=== PATIENT | female | born 1935 | race Caucasian/White ===

== ENCOUNTER 2020-08-13 16:48 | Emergency (ER) | payer OTHER ==
[2020-08-13] MEDS ORDERED: MORPHINE 2 MG/ML SYR ONE ×2 (18:02→18:31)
[2020-08-13] MEDS ORDERED: ONDANSETRON 4 MG/2 ML VIAL ONE (18:02)
--- NOTE | 2020-08-13 18:07 | EDPHYS ---
Physician Documentation [facility] Name: Ester Sanchez Age: 85 yrs Sex: Female : 1935 Arrival Date: 08/13/2020 Time: 16:51 Bed 4 Private MD: ED Physician Gary Palm HPI: 08/13 18:01 This 85 yrs old Female presents to ER via Wheelchair with complaints of Fall kdr Injury. 18:01 Details of fall: The patient fell from an upright position, while standing, while kdr walking. Onset: The symptoms/episode began/occurred suddenly, just prior to arrival. Associated injuries: The patient sustained left iliac crest and left hip. Severity of symptoms: At their worst the symptoms were moderate, in the emergency department the symptoms are unchanged. The patient has not experienced similar symptoms in the past. The patient has not recently seen a physician. The patient states that she was walking on [place] and tripped landing on her left hip. She has been unable to stand since. Historical: - Allergies: 17:17 No Known Allergies; ca1 - PMHx: 17:17 Diabetes - IDDM; Hypertension; ca1 - Immunization history:: Pneumococcal vaccine is not up to date, Flu vaccine is not up to date. - Social history:: Smoking status: Patient denies any tobacco usage or history of. - Immunization history: Last tetanus immunization: < 10 years ago. ROS: 18:01 Constitutional: Negative for fever, chills, and weight loss, Eyes: Negative for injury, kdr pain, redness, and discharge, ENT: Negative for injury, pain, and discharge, Neck: Negative for injury, pain, and swelling, Cardiovascular: Negative for chest pain, palpitations, and edema, Respiratory: Negative for shortness of breath, cough, wheezing, and pleuritic chest pain, Abdomen/GI: Negative for abdominal pain, nausea, vomiting, diarrhea, and constipation, Back: Negative for injury and pain, : Negative for injury, bleeding, discharge, and swelling, Skin: Negative for injury, rash, and discoloration, Neuro: Negative for headache, weakness, numbness, tingling, and seizure activity. Psych: Negative for depression, anxiety, suicide ideation, homicidal ideation, and hallucinations, Allergy/Immunology: Negative for hives, rash, and allergies, Endocrine: Negative for neck swelling, polydipsia, polyuria, polyphagia, and marked weight changes, Hematologic/Lymphatic: Negative for swollen nodes, abnormal bleeding, and unusual bruising. 18:01 MS/extremity: Positive for injury or acute deformity, decreased range of motion, pain, tenderness, of the left hip. Exam: 18:01 Constitutional: This is a well developed, well nourished patient who is awake, alert, kdr and in no acute distress. Head/Face: Normocephalic, atraumatic. Eyes: Pupils equal round and reactive to light, extra-ocular motions intact. Lids and lashes normal. Conjunctiva and sclera are non-icteric and not injected. Cornea within normal limits. Periorbital areas with no swelling, redness, or edema. Neck: Trachea midline, no thyromegaly or masses palpated, and no cervical lymphadenopathy. Supple, full range of motion without nuchal rigidity, or vertebral point tenderness. No Meningismus. Chest/axilla: Normal chest wall appearance and motion. Nontender with no deformity. No lesions are appreciated. Cardiovascular: Regular rate and rhythm with a normal S1 and S2. No gallops, murmurs, or rubs. Normal PMI, no JVD. No pulse deficits. Respiratory: Lungs have equal breath sounds bilaterally, clear to auscultation and percussion. No rales, rhonchi or wheezes noted. No increased work of breathing, no retractions or nasal flaring. Abdomen/GI: Soft, non-tender, with normal bowel sounds. No distension or tympany. No guarding or rebound. No evidence of tenderness throughout. Back: No spinal tenderness. No costovertebral tenderness. Full range of motion. Skin: Warm, dry with normal turgor. Normal color with no rashes, no lesions, and no evidence of cellulitis. Neuro: Awake and alert, GCS 15, oriented to person, place, time, and situation. Cranial nerves II-XII grossly intact. Motor strength 5/5 in all extremities. Sensory grossly intact. Cerebellar exam normal. Normal gait. Psych: Awake, alert, with orientation to person, place and time. Behavior, mood, and affect are within normal limits. 18:01 Musculoskeletal/extremity: Extremities: grossly normal except: noted in the left hip: contusion, decreased ROM, pain, tenderness, Distal motor vascular intact. Vital Signs: 17:14 BP 174 / 71; Pulse 98; Resp 16 S; Temp 97.1(TE); Pulse Ox 100% on R/A; Weight 56.7 kg ca1 (R); Height 5 ft. 6 in. (167.64 cm) (R); Pain 10/10; 18:24 BP 180 / 85; Pulse 93; Resp 16; Pulse Ox 95% on R/A; Pain 9/10; ss 19:20 BP 177 / 66; Pulse 68; Resp 15; Pulse Ox 99% on R/A; Pain 10/10; hb 19:30 BP 171 / 66; Pulse 91; Resp 16; Pulse Ox 95% ; sf 20:00 BP 172 / 65; Pulse 91; Resp 16; Pulse Ox 96% ; sf 20:30 BP 166 / 65; Pulse 89; Resp 16; Pulse Ox 96% ; sf 17:14 Body Mass Index 20.18 (56.70 kg, 167.64 cm) ca1 [place] Coma Score: 17:25 Eye Response: spontaneous(4). Verbal Response: oriented(5). Motor Response: obeys hb commands(6). Total: 15. 18:24 Eye Response: spontaneous(4). Verbal Response: oriented(5). Motor Response: obeys ss commands(6). Total: 15. Trauma Score (Adult): 17:25 Eye Response: spontaneous(1); Verbal Response: oriented(1); Motor Response: obeys hb commands(2); Systolic BP: > 89 mm Hg(4); Respiratory Rate: 10 to 29 per min(4); [place] Score: 15; Trauma Score: 12 18:24 Eye Response: spontaneous(1); Verbal Response: oriented(1); Motor Response: obeys ss commands(2); Systolic BP: > 89 mm Hg(4); Respiratory Rate: 10 to 29 per min(4); [place] Score: 15; Trauma Score: 12 19:20 Eye Response: spontaneous(1); Verbal Response: oriented(1); Motor Response: obeys hb commands(2); Systolic BP: > 89 mm Hg(4); Respiratory Rate: 10 to 29 per min(4); [place] Score: 15; Trauma Score: 12 MDM: 18:01 Data reviewed: vital signs, nurses notes, radiologic studies. Counseling: I had a kdr detailed discussion with the patient and/or guardian regarding: the historical points, exam findings, and any diagnostic results supporting the discharge/admit diagnosis, radiology results, the need to transfer to another facility. 18:06 Patient medically screened. kdr 08/13 17:30 Order name: Pelvis XRAY; Complete Time: 18:25 kdr 08/13 17:30 Order name: Hip Left 2 View XRAY; Complete Time: 18:25 kdr 08/13 19:36 Order name: COVID-19/FLU A+B EDMS 08/13 20:54 Order name: Glucose, Ancillary Testing EDMS Administered Medications: 17:56 Drug: morphine 2 mg Route: IVP; Site: right antecubital; hb 17:56 Drug: Zofran (Ondansetron) 4 mg Route: IVP; Site: right antecubital; hb 18:25 Follow up: Response: No adverse reaction ss 18:15 Drug: morphine 2 mg Route: IVP; Site: right antecubital; ss 18:27 Follow up: Response: No adverse reaction; No change in condition; Pain is unchanged, physician notified 18:27 Drug: fentaNYL (PF) 25 mcg Route: IVP; Site: right antecubital; ss 18:50 Follow up: Response: No adverse reaction hb 18:40 Drug: fentaNYL (PF) 25 mcg Route: IVP; Site: right antecubital; hb 18:59 Follow up: Response: No adverse reaction hb 18:55 Drug: fentaNYL (PF) 25 mcg Route: IVP; Site: right antecubital; hb 19:18 Follow up: Response: No adverse reaction; Pain is unchanged, physician notified sf 19:18 Drug: fentaNYL (PF) 50 mcg Route: IVP; Site: right antecubital; hb 20:54 Follow up: Response: No adverse reaction; Pain is decreased Disposition: 08/13/20 18:[address] [facility]. Diagnosis are Left Femeral neck fracture, Other slipping, tripping and stumbling and falls. - Reason for transfer: Higher level of care. - Accepting physician is Abio. - Condition is Fair. - Problem is new. - Symptoms are unchanged. Signatures: Dispatcher [employer] EDIN Gary Palm MD MD [facility] Poonam Rendon RN RN Paz Short RN RN Sheila Mai RN RN [facility] Josemanuel Soni RN RN sf Corrections: (The following items were deleted from the chart) 18:47 18:06 08/13/2020 18:[address] [facility]. kdr Diagnosis is Left Femeral neck fracture; Other slipping, tripping and stumbling and falls. Reason for transfer: Higher level of care. Accepting physician is e. Condition is Fair. Problem is new. Symptoms are unchanged. kdr 20:15 18:01 CORONAVIRUS+MR.LAB.BRZ ordered. EDMS EDMS 20:15 18:01 Influenza Screen (A \T\ B)+BA.LAB.BRZ ordered. EDMS EDMS 20:54 18:47 08/13/2020 18:[address] [facility]. sf Diagnosis is Left Femeral neck fracture; Other slipping, tripping and stumbling and falls. Reason for transfer: Higher level of care. Accepting physician is Abio. Condition is Fair. Problem is new. Symptoms are unchanged. kdr
--- NOTE | 2020-08-13 18:07 | ER ---
Nurse's Notes [facility] Name: Ester Sanchez Age: 85 yrs Sex: Female : 1935 Arrival Date: 08/13/2020 Time: 16:51 Bed 4 Private MD: Diagnosis: Left Femeral neck fracture;Other slipping, tripping and stumbling and falls Presentation: 08/13 17:14 Chief complaint: Patient states: Tripped and fell, stumbled and fell on my L side 1 hr ca1 [employer]. Pain on L hip. Coronavirus screen: Client denies travel out of the [place] in the last 14 days. At this time, the client does not indicate any symptoms associated with coronavirus-19. Ebola Screen: Patient negative for fever greater than or equal to 101.5 degrees Fahrenheit, and additional compatible Ebola Virus Disease symptoms Patient denies exposure to infectious person. Patient denies travel to an Ebola-affected area in the 21 days before illness onset. No symptoms or risks identified at this time. Initial Sepsis Screen: Does the patient meet any 2 criteria? No. Patient's initial sepsis screen is negative. Does the patient have a suspected source of infection? No. Patient's initial sepsis screen is negative. Risk Assessment: Do you want to hurt yourself or someone else? Patient reports no desire to harm self or others. Onset of symptoms was August 13, 2020. 17:14 Method Of Arrival: Wheelchair ca1 17:14 Acuity: MARIELY 2 ca1 17:35 Care prior to arrival: None. Mechanism of Injury: Fall from standing position. Trauma hb event details: Injury occurred in the [facility], Injury occurred: in a public building. Trauma Activation: Alert Physician: ED Physician; Name: ; Notified At: ; Arrived At: Physician: General Surgeon; Name: ; Notified At: ; Arrived At: Physician: Radiology; Name: ; Notified At: ; Arrived At: Physician: Respiratory; Name: ; Notified At: ; Arrived At: Physician: Lab; Name: ; Notified At: ; Arrived At: Historical: - Allergies: 17:17 No Known Allergies; ca1 - PMHx: 17:17 Diabetes - IDDM; Hypertension; ca1 - Immunization history:: Pneumococcal vaccine is not up to date, Flu vaccine is not up to date. - Social history:: Smoking status: Patient denies any tobacco usage or history of. - Immunization history: Last tetanus immunization: < 10 years ago. Screenin:25 Abuse screen: Denies threats or abuse. Denies injuries from another. Tuberculosis hb screening: No symptoms or risk factors identified. 17:45 Nutritional screening: No deficits noted. Fall Risk Total Ma Fall Scale indicates hb High Risk Score (45 or more points). Fall prevention measures have been instituted. Side Rails Up X 2 Frequent Obs/Assessments Occuring As available patient and family educated on Fall Prevention Program and Strategies. Primary Survey: 17:25 NO uncontrolled hemorrhage observed. A: The patient is alert. Airway: patent. hb Breathing/Chest: Respiratory pattern: regular, Respiratory effort: spontaneous, unlabored, Chest inspection: symmetrical rise and fall of the chest. Circulation: Skin color: pink. Disability Alert. Exposure/Environment: No obvious injuries are noted at this time. 18:26 Reassessment Airway Airway Patent Oxygen No O2 Oral cavity Clear Trachea Midline ss Breathing/Chest Respiratory pattern Regular Respiratory effort Spontaneous Unlabored Breath sounds Clear Chest inspection Symmetrical Disability Alert. 19:20 Reassessment Airway Airway Patent Oxygen No O2 Breathing/Chest Respiratory pattern hb Regular Respiratory effort Spontaneous Unlabored Chest inspection Symmetrical Circulation Pulses Palpable Color [place] Disability Alert. Secondary Survey: 17:30 HEENT: No deficits noted. Gastrointestinal: No deficits noted. Abdomen is. : No hb deficits noted. No signs and/or symptoms were reported regarding the genitourinary system. Musculoskeletal: Reports left hip pain 10/10, left leg shortened and externally rotated. Assessment: 17:45 General: Appears in no apparent distress. uncomfortable, Behavior is calm, cooperative. hb Pain: Pain currently is 10 out of 10 on a pain scale. 17:45 Neuro: Level of Consciousness is awake, alert, obeys commands, Oriented to person, hb place, time, situation. Cardiovascular: Capillary refill < 3 seconds Patient's skin is warm and dry. Respiratory: Respiratory effort is even, unlabored, Respiratory pattern is regular, symmetrical. GI: No signs and/or symptoms were reported involving the gastrointestinal system. : No signs and/or symptoms were reported regarding the genitourinary system. EENT: No signs and/or symptoms were reported regarding the EENT system. Derm: Skin is pink, warm \T\ dry. Musculoskeletal: Reports ;eft hip pain 10/10, left leg externally rotated and shortened. 18:32 Reassessment: Pt c/o left hip pain 10/10. Dr Palm notified, fentanyl administered as hb ordered. 19:19 Reassessment: AK c/o left hip pain 10/10, CONSUELO Baird notified, VO for fentanyl 50 mcg IVP hb given. Medicated as ordered. Patented to call report to [facility], nurse unavailable at this time. Vital Signs: 17:14 BP 174 / 71; Pulse 98; Resp 16 S; Temp 97.1(TE); Pulse Ox 100% on R/A; Weight 56.7 kg ca1 (R); Height 5 ft. 6 in. (167.64 cm) (R); Pain 10/10; 18:24 BP 180 / 85; Pulse 93; Resp 16; Pulse Ox 95% on R/A; Pain 9/10; ss 19:20 BP 177 / 66; Pulse 68; Resp 15; Pulse Ox 99% on R/A; Pain 10/10; hb 19:30 BP 171 / 66; Pulse 91; Resp 16; Pulse Ox 95% ; sf 20:00 BP 172 / 65; Pulse 91; Resp 16; Pulse Ox 96% ; sf 20:30 BP 166 / 65; Pulse 89; Resp 16; Pulse Ox 96% ; sf 17:14 Body Mass Index 20.18 (56.70 kg, 167.64 cm) ca1 [place] Coma Score: 17:25 Eye Response: spontaneous(4). Verbal Response: oriented(5). Motor Response: obeys hb commands(6). Total: 15. 18:24 Eye Response: spontaneous(4). Verbal Response: oriented(5). Motor Response: obeys ss commands(6). Total: 15. Trauma Score (Adult): 17:25 Eye Response: spontaneous(1); Verbal Response: oriented(1); Motor Response: obeys hb commands(2); Systolic BP: > 89 mm Hg(4); Respiratory Rate: 10 to 29 per min(4); [place] Score: 15; Trauma Score: 12 18:24 Eye Response: spontaneous(1); Verbal Response: oriented(1); Motor Response: obeys ss commands(2); Systolic BP: > 89 mm Hg(4); Respiratory Rate: 10 to 29 per min(4); [place] Score: 15; Trauma Score: 12 19:20 Eye Response: spontaneous(1); Verbal Response: oriented(1); Motor Response: obeys hb commands(2); Systolic BP: > 89 mm Hg(4); Respiratory Rate: 10 to 29 per min(4); [place] Score: 15; Trauma Score: 12 ED Course: 16:51 Patient arrived in ED. rg4 17:17 Triage completed. ca1 17:17 Arm band placed on right wrist. ca1 17:18 Gary Palm MD is Attending Physician. kdr 17:25 Patient has correct armband on for positive identification. Bed in low position. Call hb light in reach. Side rails up X 1. 17:25 Patient maintains SpO2 saturation greater than 95% on room air. hb 17:35 Thermoregulation: warm blanket given to patient. hb 17:42 Paz Short RN is Primary Nurse. hb 17:49 Pelvis XRAY In Process Unspecified. EDMS 17:50 Hip Left 2 View XRAY In Process Unspecified. EDMS 17:55 Inserted saline lock: 20 gauge in right antecubital area, using aseptic technique. hb 18:23 No provider procedures requiring assistance completed. Patient transferred, IV remains ss in place. 18:24 Talley cath inserted, using sterile technique, 16 Fr., by mn, balloon inflated, to ss gravity drainage, Patient tolerated well. 19:23 Primary Nurse role handed off by Paz Short RN sf 19:23 Josemanuel Soni RN is Primary Nurse. sf 20:03 Report given to Homa Sweet RN ([facility]). sf 20:51 Report given to [facility]. sf Administered Medications: 17:56 Drug: morphine 2 mg Route: IVP; Site: right antecubital; hb 17:56 Drug: Zofran (Ondansetron) 4 mg Route: IVP; Site: right antecubital; hb 18:25 Follow up: Response: No adverse reaction ss 18:15 Drug: morphine 2 mg Route: IVP; Site: right antecubital; ss 18:27 Follow up: Response: No adverse reaction; No change in condition; Pain is unchanged, physician notified 18:27 Drug: fentaNYL (PF) 25 mcg Route: IVP; Site: right antecubital; ss 18:50 Follow up: Response: No adverse reaction hb 18:40 Drug: fentaNYL (PF) 25 mcg Route: IVP; Site: right antecubital; hb 18:59 Follow up: Response: No adverse reaction hb 18:55 Drug: fentaNYL (PF) 25 mcg Route: IVP; Site: right antecubital; hb 19:18 Follow up: Response: No adverse reaction; Pain is unchanged, physician notified sf 19:18 Drug: fentaNYL (PF) 50 mcg Route: IVP; Site: right antecubital; hb 20:54 Follow up: Response: No adverse reaction; Pain is decreased sf Intake: 17:25 PO: 0ml; Total: 0ml. hb Outcome: 18:06 ER care complete, transfer ordered by . kdr 18:23 Instructed on the need for transfer. ss 20:02 Transferred by ground EMS to [facility], Transfer form completed. sf X-rays sent w/ patient. 20:02 Condition: stable 20:53 Patient's length of stay in the Emergency Department was greater than 2 hours. sf TransportationPatient's length of stay extended due to 20:54 Patient left the ED. sf Signatures: Dispatcher [employer] EDMS Gary Palm MD MD [facility] Poonam Rendon RN RN Paz Short, ATIF SRIVASTAVA Irish Wan rg4 Sheila Mai RN RN [facility] Josemanuel Soni RN RN sf Corrections: (The following items were deleted from the chart) 19:20 17:35 Trauma Activation: Not Applicable hb hb 20:51 20:02 Transferred by ground EMS to [facility], Transfer form sf completed. X-rays sent w/ patient. sf
--- NOTE | 2020-08-13 18:12 | RAD REPORT ---
EXAM DESCRIPTION: RAD - Hip Left 2 View - 08/13/2020 5:49 pm CLINICAL HISTORY: s/p fall;Pain COMPARISON: No comparisons FINDINGS: AP and cross-table lateral views of the left hip were obtained. Transverse fracture of the left femoral neck is present. Fracture traverses from the subcapital regio n laterally to the midportion of the femoral at the medial margin. There is impaction along the media l margin. No extension into the intertrochanteric region. Pathologic etiology is not identifiable. Bones are osteopenic. Degenerative changes are present along the superior acetabular rim. No fracture of the left hemipelvis seen. SI joint and pubic symphysis degenerative changes present. No significant soft tissue finding. IMPRESSION: Left femoral neck fracture with impaction as detailed.
--- NOTE | 2020-08-13 18:13 | RAD REPORT ---
EXAM DESCRIPTION: RAD - Pelvis - 08/13/2020 5:49 pm CLINICAL HISTORY: PAIN, fall, pelvic and pain COMPARISON: No remote imaging TECHNIQUE: AP imaging of the pelvis was obtained. FINDINGS: Fracture of the left femoral neck is present and detailed in separate report. No fracture of the proximal right femur. Bilateral moderate severity hip joint degenerative change. Each medial j oint space is narrowed. Spurring changes are present at each acetabular rim. Pelvis is osteopenic. Fracture of the bony pelvis is not identified. Sacral ala appear intact but are partially obscured by bowel. SI joint degenerative change present. Patient has severe lumbar degener ative change only partially imaged. Arterial tree calcifications are present. IMPRESSION: Bony pelvis osteopenic and degenerative change as detailed. No acute finding of the bony pelvis. Left femoral neck fracture detailed in separate report.
[2020-08-13] MEDS ORDERED: FENTANYL CITR 100 MCG/2 ML ONE ×2 (18:42→19:34)
[2020-08-13 19:36] LABS: SARS-COV-2 RT PCR NEGATIVE (NEGATIVE)
[2020-08-14 15:45] VITALS: BP 171/66; O2SAT 95
== END 2020-08-13 20:54 | disposition short-term general hospital (02) ==
LOC: ER 16:48
DX: S72.002A Fracture of unspecified part of neck of left femur, initial encounter for closed fracture (principal); W01.0XXA Fall on same level from slipping, tripping and stumbling without subsequent striking against object, initial encounter; Y93.01 Activity, walking, marching and hiking; Y92.512 Supermarket, store or market as the place of occurrence of the external cause; Z20.822 Contact with and (suspected) exposure to COVID-19; I10 Essential (primary) hypertension; E11.9 Type 2 diabetes mellitus without complications
CPT/HCPCS: 82947; 0240U; 72170; 73502; 51702; 96375; 96374; 99285; J3010 ×2; J2270 ×2; J2405; G0390

== ENCOUNTER 2021-04-08 14:09 | Inpatient (IN) | payer OTHER ==
--- OUTSIDE RECORDS SUMMARY | 2021-04-08 14:12 | XMS REPORT | Continuity of Care Document ---
:1935 Author Organization [facility] t Address [address] [place] [address] Dr. Osullivan [address] [place] [id number] Care Team Providers Name Role Phone JUAN M MIXON Attending Clinician Unavailable Oksana MIXON Admitting Clinician Unavailable ATILIO QUARLES Admitting Clinician Unavailable Payers Payer Name Policy Type Policy Number Effective Date Expiration Date S speedy MEDICARE A B [id number] 2000 00:00:00 [employer] MEDICARE HMO [id number] 2013 POS 00:00:00 Problems This patient has no known problems. Allergies, Adverse Reactions, Alerts Allergy Allergy Status Severity Reaction(s) Onset Inactive Treating Comm ents Source Name Type Date Date Clinician NO KNOWN Allergy Active SLE ALLERGIE S Medications This patient has no known medications. Vital Signs Vital Name Observation Time Observation Value Comments Source HEIGHT 2020-08-17 03:00:00 167.6 cm WEIGHT 2020-08-17 03:00:00 56.7 kg HEIGHT 2020-08-17 03:00:00 167.6 cm WEIGHT 2020-08-17 03:00:00 56.7 kg Procedures This patient has no known procedures. Encounters Start End Encounter Admission Attending Care Care Encounter Source Date/Time Date/Time Type Type Clinicians Facility Department ID 2021-02-20 Inpatient ER JUNG MIXON Orthopaedic [id number] [address] 11:09:33 JUAN M Results Test Description Test Time Test Comments Results Result Comments Source TISSUE EXAM 2020-08-24 Surgical Pathology 18:57:00 Report Case: [id number] Authorizing Provider: Johnny Gonzalez MD Collected: 08/15/2020 09:54 AM Ordering Location: [address] Received: 08/17/2020 09:04 AM Service Pathologist: Nabila Vega MD Specimen: Femoral Head,Left Hip LEFT FEMORAL HEAD, STATUS POST FRACTURE, HIP REPLACEMENT: - INTER-TRABECULAR HEMORRHAGE CONSISTENT WITH RECENT FRACTURE - DEGENERATIVE JOINT DISEASE - SEVERE OSTEOPENIA - NEGATIVE FOR MALIGNANCY Signing Pathologist Direct Phone Line: [phone] hsandra signed by Nabila Vega MD on 08/24/2020 at 6:57 [id number]; [id number] fracture of neck of left femur, initial encounter Femoral head, left hipReceived in formalin labeled the patient's name, accession number and "femoral head, left hip" is a 4.2 x 4.0 x 3.2 cm femoral head. The articular surface is smooth to finely granular and displays multiple peripheral osteophytes. The subcapital surface is diffusely hemorrhagic and jagged. The cut surface is morales-yellow, diffusely hemorrhagic at the margin, trabeculated and firm. [employer] sections are submitted in A1-A3 following decalcification, with a margin in A1.CONSUELO Lomeli, HT (ASCP)PERFORMED POCT-GLUCOSE METER 2020-08-19 12:13:00 Test Item Value Reference Range Interpretation Comme nts POC-GLUCOSE METER (BEAKER) 162 mg/dL 70-110 H : TESTED AT [address] (test code = 1538) [facility] X, [address]: Measurement And Sensing Technician/Techni suzette ID = [id number] for BATOOL GUILLERMO POCT-GLUCOSE [id number] 08:40:00 Test Item Value Reference Range Interpretation Comments POC-GLUCOSE METER 381 mg/dL 70-110 H : TESTED A T [place] [address] (BEAKER) (test code = [facility], 1538) [address]: Measurement And Sensing Technician/Techni suzette ID = [id number] for BATOOL VICKERS BLOOD [id number] 07:00:00 Test Item Value Reference Range Interpretation Comments CULTURE (BEAKER) (test No growth in 5 days code = 1095) BLOOD [id number] 07:00:00 Test Item Value Reference Range Interpretation Comments CULTURE (BEAKER) (test No growth in 5 days code = 1095) CALCIUM, [id number] 06:28:00 Test Item Value Reference Range Interpretation Comments CALCIUM IONIZED (BEAKER) (test 1.08 mmol/L 1.12-1.27 L code = 698) PH, BLOOD (BEAKER) (test code = 7.46 1810) BASIC METABOLIC [id number] 06:27:00 Test Item Value Reference Range Interpretation Comments SODIUM (BEAKER) 139 meq/L 136-145 (test code = 381) POTASSIUM (BEAKER) 3.7 meq/L 3.5-5.1 (test code = 379) CHLORIDE (BEAKER) 104 meq/L 98-107 (test code = 382) CO2 (BEAKER) (test 26 meq/L 22-29 code = 355) BLOOD UREA NITROGEN 13 mg/dL 7-21 (BEAKER) (test code = 354) CREATININE (BEAKER) 0.69 mg/dL 0.57-1.25 (test code = 358) GLUCOSE RANDOM 203 mg/dL 70-105 H (BEAKER) (test code = 652) CALCIUM (BEAKER) 8.1 mg/dL 8.4-10.2 L (test code = 697) EGFR (BEAKER) (test 81 mL/min/1.73 ESTIMA MAYRA GFR IS code = 1092) sq m NOT ACCURATE CREATININE CLEARANCE IN PREDICTING GLOMERULAR FILTRATION RATE . ESTIMATED GFR I S NOT APPLICABLE FOR DIALYSIS PATIEN TS. Measurement And Sensing Technician ID - [id number] 06:27:00 Test Item Value Reference Range Interpretation Comments MAGNESIUM (BEAKER) (test code = 1.7 mg/dL 1.6-2.6 627) Measurement And Sensing Technician ID - [id number] 06:27:00 Test Item Value Reference Range Interpretation Comments PHOSPHORUS (BEAKER) (test code = 2.3 mg/dL 2.3-4.7 604) Measurement And Sensing Technician ID - BSCBC W/PLT COUNT & AUTO [id number] 05:56:00 Test Item Value Reference Range Interpretation Comments WHITE BLOOD CELL COUNT (BEAKER) 6.9 K/ L 3.5-10.5 (test code = 775) RED BLOOD CELL COUNT (BEAKER) 2.95 M/ L 3.93-5.22 L (test code = 761) HEMOGLOBIN (BEAKER) (test code = 8.7 GM/DL 11.2-15.7 L 410) HEMATOCRIT (BEAKER) (test code = 26.5 % 34.1-44.9 L 411) MEAN CORPUSCULAR VOLUME (BEAKER) 89.8 fL 79.4-94.8 (test code = 753) MEAN CORPUSCULAR HEMOGLOBIN 29.5 pg 25.6-32.2 (BEAKER) (test code = 751) MEAN CORPUSCULAR HEMOGLOBIN CONC 32.8 GM/DL 32.2-35.5 (BEAKER) (test code = 752) RED CELL DISTRIBUTION WIDTH 13.1 % 11.7-14.4 (BEAKER) (test code = 412) PLATELET COUNT (BEAKER) (test 245 K/CU MM 150-450 code = 756) MEAN PLATELET VOLUME (BEAKER) 10.3 fL 9.4-12.3 (test code = 754) NUCLEATED RED BLOOD CELLS 0 /100 WBC 0-0 (BEAKER) (test code = 413) NEUTROPHILS RELATIVE PERCENT 71 % (BEAKER) (test code = 429) LYMPHOCYTES RELATIVE PERCENT 14 % (BEAKER) (test code = 430) MONOCYTES RELATIVE PERCENT 12 % (BEAKER) (test code = 431) EOSINOPHILS RELATIVE PERCENT 3 % (BEAKER) (test code = 432) BASOPHILS RELATIVE PERCENT 0 % (BEAKER) (test code = 437) NEUTROPHILS ABSOLUTE COUNT 4.87 K/ L 1.56-6.13 (BEAKER) (test code = 670) LYMPHOCYTES ABSOLUTE COUNT 0.94 K/ L 1.18-3.74 L (BEAKER) (test code = 414) MONOCYTES ABSOLUTE COUNT (BEAKER) 0.82 K/ L 0.24-0.36 H (test code = 415) EOSINOPHILS ABSOLUTE COUNT 0.18 K/ L 0.04-0.36 (BEAKER) (test code = 416) BASOPHILS ABSOLUTE COUNT (BEAKER) 0.02 K/ L 0.01-0.08 (test code = 417) IMMATURE GRANULOCYTES-RELATIVE 0 % 0-1 PERCENT (BEAKER) (test code = 2801) POCT-GLUCOSE [id number] 01:28:00 Test Item Value Reference Range Interpretation Comments POC-GLUCOSE METER 129 mg/dL 70-110 H : TESTED A T [facility] 6720 (BEAKER) (test code = [place], 1538) [address]: Measurement And Sensing Technician/Techni suzette ID = [id number] for Lloyd Antony POCT-GLUCOSE [id number] 00:27:00 Test Item Value Reference Range Interpretation Comments POC-GLUCOSE METER 48 mg/dL 70-110 L : TESTED A T [facility] 6720 (BEAKER) (test code = [facility], 1538) [address]: Measurement And Sensing Technician/Techni suzette ID = [id number] for DI REESE AM POCT-GLUCOSE [id number] 16:17:00 Test Item Value Reference Range Interpretation Comments POC-GLUCOSE METER 159 mg/dL 70-110 H : TESTED A T [facility] 6720 (BEAKER) (test code = [facility], 1538) [address]: Measurement And Sensing Technician/Techni suzette ID = [id number] for ARAM BELL POCT-GLUCOSE [id number] 12:38:00 Test Item Value Reference Range Interpretation Comments POC-GLUCOSE METER 158 mg/dL 70-110 H : TESTED A T [facility] 6720 (BEAKER) (test code = [facility], 153) [address]: Measurement And Sensing Technician/Techni suzette ID = [id number] for ARAM BELL COMPREHENSIVE METABOLIC [id number] 12:20:00 Test Item Value Reference Range Interpretation Comments TOTAL PROTEIN 5.2 gm/dL 6.0-8.3 L (BEAKER) (test code = 770) ALBUMIN (BEAKER) 2.7 g/dL 3.5-5.0 L (test code = 1145) ALKALINE PHOSPHATASE 112 U/L 40-150 (BEAKER) (test code = 346) BILIRUBIN TOTAL 0.6 mg/dL 0.2-1.2 (BEAKER) (test code = 377) SODIUM (BEAKER) (test 140 meq/L 136-145 code = 381) POTASSIUM (BEAKER) 3.6 meq/L 3.5-5.1 (test code = 379) CHLORIDE (BEAKER) 106 meq/L 98-107 (test code = 382) CO2 (BEAKER) (test 24 meq/L 22-29 code = 355) BLOOD UREA NITROGEN 21 mg/dL 7-21 (BEAKER) (test code = 354) CREATININE (BEAKER) 0.82 mg/dL 0.57-1.25 (test code = 358) GLUCOSE RANDOM 190 mg/dL 70-105 H (BEAKER) (test code = 652) CALCIUM (BEAKER) 8.5 mg/dL 8.4-10.2 (test code = 697) AST (SGOT) (BEAKER) 33 U/L 5-34 (test code = 353) ALT (SGPT) (BEAKER) 14 U/L 6-55 (test code = 347) EGFR (BEAKER) (test 66 mL/min/1.73 ESTIMA MAYRA GFR IS code = 1092) sq m NOT ACCURATE CREATININE CLEARANCE IN PREDICTING GLOMERULAR FILTRATION RATE . ESTIMATED GFR I S NOT APPLICABLE FOR DIALYSIS PATIEN TS. Measurement And Sensing Technician ID - LISA [id number] 12:20:00 Test Item Value Reference Range Interpretation Comments MAGNESIUM (BEAKER) (test code = 1.8 mg/dL 1.6-2.6 627) Measurement And Sensing Technician ID Angelina ORTA [id number] 12:20:00 Test Item Value Reference Range Interpretation Comments PHOSPHORUS (BEAKER) (test code = 2.2 mg/dL 2.3-4.7 L 604) Measurement And Sensing Technician ID - LISA FCBC W/PLT COUNT & AUTO [id number] 11:57:00 Test Item Value Reference Range Interpretation Comments WHITE BLOOD CELL COUNT (BEAKER) 9.8 K/ L 3.5-10.5 (test code = 775) RED BLOOD CELL COUNT (BEAKER) 3.23 M/ L 3.93-5.22 L (test code = 761) HEMOGLOBIN (BEAKER) (test code = 9.5 GM/DL 11.2-15.7 L 410) HEMATOCRIT (BEAKER) (test code = 28.0 % 34.1-44.9 L 411) MEAN CORPUSCULAR VOLUME (BEAKER) 86.7 fL 79.4-94.8 (test code = 753) MEAN CORPUSCULAR HEMOGLOBIN 29.4 pg 25.6-32.2 (BEAKER) (test code = 751) MEAN CORPUSCULAR HEMOGLOBIN CONC 33.9 GM/DL 32.2-35.5 (BEAKER) (test code = 752) RED CELL DISTRIBUTION WIDTH 13.2 % 11.7-14.4 (BEAKER) (test code = 412) PLATELET COUNT (BEAKER) (test 265 K/CU MM 150-450 code = 756) MEAN PLATELET VOLUME (BEAKER) 10.7 fL 9.4-12.3 (test code = 754) NUCLEATED RED BLOOD CELLS 0 /100 WBC 0-0 (BEAKER) (test code = 413) NEUTROPHILS RELATIVE PERCENT 79 % (BEAKER) (test code = 429) LYMPHOCYTES RELATIVE PERCENT 9 % (BEAKER) (test code = 430) MONOCYTES RELATIVE PERCENT 10 % (BEAKER) (test code = 431) EOSINOPHILS RELATIVE PERCENT 1 % (BEAKER) (test code = 432) BASOPHILS RELATIVE PERCENT 0 % (BEAKER) (test code = 437) NEUTROPHILS ABSOLUTE COUNT 7.74 K/ L 1.56-6.13 H (BEAKER) (test code = 670) LYMPHOCYTES ABSOLUTE COUNT 0.87 K/ L 1.18-3.74 L (BEAKER) (test code = 414) MONOCYTES ABSOLUTE COUNT (BEAKER) 1.01 K/ L 0.24-0.36 H (test code = 415) EOSINOPHILS ABSOLUTE COUNT 0.11 K/ L 0.04-0.36 (BEAKER) (test code = 416) BASOPHILS ABSOLUTE COUNT (BEAKER) 0.04 K/ L 0.01-0.08 (test code = 417) IMMATURE GRANULOCYTES-RELATIVE 1 % 0-1 PERCENT (BEAKER) (test code = 2801) POCT-GLUCOSE [id number] 07:24:00 Test Item Value Reference Range Interpretation Comments POC-GLUCOSE METER 295 mg/dL 70-110 H : Notified RN/MD: (REECE) (test code = TESTED AT [facility] 6720 1532) [facility], [address]: Measurement And Sensing Technician/Techni suzette ID = [id number] for ARAM BELL TROPONIN [id number] 05:48:00 Test Item Value Reference Range Interpretation Comments TROPONIN I (REECE) (test code = 0.74 ng/mL 0.00-0.03 [facility]) Troponin I (TnI) levels must be interpreted in the context of the presenting symptoms and the clinical findings. Elevated TnI levels indicate myocardial damage, but are not specific for ischemic heart disease. Elevated TnI levels are seen in patients with other cardiac conditions (including myocarditis and congestive heart failure), and slight TnI elevations occur in patients with other conditions, including sepsis, renal failure, acidosis, acute neurological disease, and persistent tachyarrhythmia.Measurement And Sensing Technician ID - EDASIPOCT-GLUCOSE METER 2020-08-17 21:32:00 Test Item Value Reference Range Interpretation Comments POC-GLUCOSE METER 129 mg/dL 70-110 H : TESTED A T [facility] 6720 (BEAKER) (test code = [facility], 1538) [id number]: Measurement And Sensing Technician/Techni suzette ID = [id number] for Kari Chew TROPONIN [id number] 20:31:00 Test Item Value Reference Range Interpretation Comments TROPONIN I (LENCHOAKER) (test code = 1.05 ng/mL 0.00-0.03 397) Troponin I (TnI) levels must be interpreted in the context of the presenting symptoms and the clinical findings. Elevated TnI levels indicate myocardial damage, but are not specific for ischemic heart disease. Elevated TnI levels are seen in patients with other cardiac conditions (including myocarditis and congestive heart failure), and slight TnI elevations occur in patients with other conditions, including sepsis, renal failure, acidosis, acute neurological disease, and persistent tachyarrhythmia.Measurement And Sensing Technician ID - DBPOCT-GLUCOSE METER 2020-08-17 16:39:00 Test Item Value Reference Range Interpretation Comments POC-GLUCOSE METER 136 mg/dL 70-110 H : TESTED A T [facility] 6720 (BEAKER) (test code = [facility], 1538) [address]: Measurement And Sensing Technician/Techni suzette ID = [id number] for Tracey Singh CT, CHEST WITH IV CONTRAST- PE TEST [id number] 15:33:00Reason for exam:- >TachycardiaWhat is the patient's sedation requirement?->No Sedation [facility] : 1935 Sex: FFINAL REPORT TECHNIQUE: CT of the chest WITH intravenous contrast (pulmonary embolism protocol). Dose modulation, iterative reconstruction, and/or weight-based adjustment of the mA/kV was utilized to reduce the radiation dose to as low as reasonably achievable. INDICATION:PE suspected, high pretest probTachycardia COMPARISON: None. FINDINGS: LINES/TUBES: None. PULMONARY ARTERIES: Proximal to the bifurcation of the main pulmonary artery, the main pulmonary artery is 2.6 cm in diameter. Nonocclusive thrombus across the right portal vein bifurcation extending into the right upper and right lower lobe branches.. LUNGS AND AIRWAYS: Central airways are patent. There is passive atelectasis in the bilateral lungs.. PLEURA: Small bilateral pleural effusions.. HEART AND MEDIASTINUM: The visualized thyroid gland is normal. No significant mediastinal, hilar, or axillary lymphadenopathy. The heart and pericardium are within normal limits. Atherosclerotic calcifications in the thoracic aorta and coronary arteries. SOFT TISSUES AND BONES: Degenerative changes in the spine and shoulders. No suspicious osseous lesion. There is diffuse osteopenia. Age- indeterminate anterior compression deformity of the L1 vertebral body.. UPPER ABDOMEN: Unremarkable. IMPRESSION:Nonocclusive pulmonary embolism at the right main pulmonary arterial bifurcation. Small bilateral pleural effusionswith dependent atelectasis. Diffuse osteopenia with Age-indeterminate L1 compression fracture. Right-sided pulmonary embolism findings were relayed to Dr. Sandy at 3:30 PM. Signed: Brayan Ma MDReport Verified Date/Time: 08/17/2020 15:33:41 Reading Location: [facility] Diagnostic Imaging Reading Room - [place] [id number] RAD, CHEST, 1 VIEW, NON [id number] 11:43:00Reason for exam:->infectious evaluationShould this be performed at the bedside?->Yes [facility] : 1935 Sex: FFINAL REPORT INDICATION: infectious evaluation COMPARISON: None TECHNIQUE: Single frontal view of the chest. FINDINGS: Lungs and pleura: Clear lungs. Small bilateral effusionsHeart and mediastinum: Normal heart size. Unremarkable mediastinal contours.Osseous structures: Noacute abnormality.Other: None. IMPRESSION: Small bilateral effusions. No focal pneumonia. Signed: Alondra Perales Verified Date/Time: 08/17/2020 11:43:05 Reading Location: [facility] Radiology Reading Room POCT-GLUCOSE [id number] 11:18:00 Test Item Value Reference Range Interpretation Comments POC-GLUCOSE METER 261 mg/dL 70-110 H : TESTED A T [facility] 6720 (LENCHOMARIO) (test code = MOJGANANNMARIE Bonilla [facility], 1538) [address]: Measurement And Sensing Technician/Techni suzette ID = [id number] for Tracey Singh TROPONIN [id number] 10:17:00 Test Item Value Reference Range Interpretation Comments TROPONIN I (LENCHOMARIO) (test code = 0.90 ng/mL 0.00-0.03 [facility]) Troponin I (TnI) levels must be interpreted in the context of the presenting symptoms and the clinical findings. Elevated TnI levels indicate myocardial damage, but are not specific for ischemic heart disease. Elevated TnI levels are seen in patients with other cardiac conditions (including myocarditis and congestive heart failure), and slight TnI elevations occur in patients with other conditions, including sepsis, renal failure, acidosis, acute neurological disease, and persistent tachyarrhythmia.Measurement And Sensing Technician ID - CIARRA CB-TYPE NATRIURETIC FACTOR (BNP)2020-08-17 09:48:00 Test Item Value Reference Range Interpretation Comments B-TYPE NATRIURETIC PEPTIDE (BEAKER) 383 pg/mL 0-100 H (test code = 700) Measurement And Sensing Technician ID - CIARRA [id number] 09:30:00 Test Item Value Reference Range Interpretation Comments D-DIMER QUANTITATIVE (BEAKER) 1.61 MG/L FEU <0.50 H (test code = 671) Intended Use: The D-Dimer Assay can be used to aid in the diagnosis of Deep Vein Thrombosis (DVT) and Pulmonary Embolism Disease (PED).In patients with low pre- test probability, various studies concerning STA Liatest D-dimer test have reported that with a cutoff value of 0.50 MG/L FEU, the Negative Predictive Value (NPV) regarding the exclusion of thrombosis is within 95-100% range.CBC W/PLT COUNT & AUTO [id number] 07:21:00 Test Item Value Reference Range Interpretation Comments WHITE BLOOD CELL COUNT (BEAKER) 12.0 K/ L 3.5-10.5 H (test code = 775) RED BLOOD CELL COUNT (BEAKER) 3.17 M/ L 3.93-5.22 L (test code = 761) HEMOGLOBIN (BEAKER) (test code = 9.4 GM/DL 11.2-15.7 L 410) HEMATOCRIT (BEAKER) (test code = 27.6 % 34.1-44.9 L 411) MEAN CORPUSCULAR VOLUME (BEAKER) 87.1 fL 79.4-94.8 (test code = 753) MEAN CORPUSCULAR HEMOGLOBIN 29.7 pg 25.6-32.2 (BEAKER) (test code = 751) MEAN CORPUSCULAR HEMOGLOBIN CONC 34.1 GM/DL 32.2-35.5 (BEAKER) (test code = 752) RED CELL DISTRIBUTION WIDTH 13.2 % 11.7-14.4 (BEAKER) (test code = 412) PLATELET COUNT (BEAKER) (test 228 K/CU MM 150-450 code = 756) MEAN PLATELET VOLUME (BEAKER) 10.7 fL 9.4-12.3 (test code = 754) NUCLEATED RED BLOOD CELLS 0 /100 WBC 0-0 (BEAKER) (test code = 413) (CELLAVISION MANUAL DIFF)2020-08-17 07:21:00 Test Item Value Reference Range Interpretation Comments NEUTROPHILS - REL 74 % (CELLAVISION)(BEAKER) (test code = 2816) LYMPHOCYTES - REL 12 % (CELLAVISION)(BEAKER) (test code = 2817) MONOCYTES - REL 14 % (CELLAVISION)(BEAKER) (test code = 2818) NEUTROPHILS - ABS 8.88 K/ul 1.56-6.13 H (CELLAVISION)(BEAKER) (test code = 2830) LYMPHOCYTES - ABS 1.44 K/ul 1.18-3.74 (CELLAVISION)(BEAKER) (test code = 2831) MONOCYTES - ABS 1.68 K/uL 0.24-0.36 H (CELLAVISION)(BEAKER) (test code = 2832) TOTAL COUNTED (BEAKER) (test code 100 = 1351) SMUDGE CELLS (BEAKER) (test code Present = 1371) GIANT PLATELETS (BEAKER) (test Present code = 313) POIKILOCYTES (BEAKER) (test code 1+ few = 966) SCHISTOCYTES (BEAKER) (test code 1+ few = 765) TRINIDAD CELLS (BEAKER) (test code = 2+ moderate 474) PLATELET CONCENTRATION Adequate (CELLAVISION)(BEAKER) (test code = 3438) Measurement And Sensing Technician ID - Claire Malhotra comments: Slide comments:POCT-GLUCOSE METER 2020-08-17 06:15:00 Test Item Value Reference Range Interpretation Comments POC-GLUCOSE METER 302 mg/dL 70-110 H : TESTED A T [facility] 6720 (BEAKER) (test code = [place], 1538) [address]: Measurement And Sensing Technician/Techni suzette ID = [id number] for Ca Kari harris CALCIUM, [id number] 04:26:00 Test Item Value Reference Range Interpretation Comments CALCIUM IONIZED (BEAKER) (test 1.11 mmol/L 1.12-1.27 L code = 698) PH, BLOOD (BEAKER) (test code = 7.40 1810) TSH/FREE T4 IF [id number] 04:01:00 Test Item Value Reference Range Interpretation Comments THYROID STIMULATING HORMONE 0.416 uIU/mL 0.350-4.940 (BEAKER) (test code = 772) Measurement And Sensing Technician ID - EDASIBASIC METABOLIC [id number] 03:29:00 Test Item Value Reference Range Interpretation Comments SODIUM (BEAKER) 135 meq/L 136-145 L (test code = 381) POTASSIUM (BEAKER) 4.2 meq/L 3.5-5.1 (test code = 379) CHLORIDE (BEAKER) 102 meq/L 98-107 (test code = 382) CO2 (BEAKER) (test 20 meq/L 22-29 L code = 355) BLOOD UREA NITROGEN 36 mg/dL 7-21 H (BEAKER) (test code = 354) CREATININE (BEAKER) 0.88 mg/dL 0.57-1.25 (test code = 358) GLUCOSE RANDOM 274 mg/dL 70-105 H (BEAKER) (test code = 652) CALCIUM (BEAKER) 8.3 mg/dL 8.4-10.2 L (test code = 697) EGFR (BEAKER) (test 61 mL/min/1.73 ESTIMA MAYRA GFR IS code = 1092) sq m NOT ACCURATE CREATININE CLEARANCE IN PREDICTING GLOMERULAR FILTRATION RATE . ESTIMATED GFR I S NOT APPLICABLE FOR DIALYSIS PATIEN TS. Measurement And Sensing Technician ID - [id number] 03:29:00 Test Item Value Reference Range Interpretation Comments MAGNESIUM (BEAKER) (test code = 1.7 mg/dL 1.6-2.6 627) Measurement And Sensing Technician ID - [id number] 03:29:00 Test Item Value Reference Range Interpretation Comments PHOSPHORUS (BEAKER) (test code = 2.4 mg/dL 2.3-4.7 604) Measurement And Sensing Technician ID - EDASIPOCT-GLUCOSE [id number] 21:16:00 Test Item Value Reference Range Interpretation Comments POC-GLUCOSE METER 213 mg/dL 70-110 H : TESTED A T [facility] 6720 (BEAKER) (test code = [place], 1538) [address]: Measurement And Sensing Technician/Techni suzette ID = [id number] for Kari Chew BASIC METABOLIC [id number] 17:34:00 Test Item Value Reference Range Interpretation Comments SODIUM (BEAKER) 134 meq/L 136-145 L (test code = 381) POTASSIUM (BEAKER) 4.4 meq/L 3.5-5.1 (test code = 379) CHLORIDE (BEAKER) 100 meq/L 98-107 (test code = 382) CO2 (BEAKER) (test 22 meq/L 22-29 code = 355) BLOOD UREA NITROGEN 44 mg/dL 7-21 H (BEAKER) (test code = 354) CREATININE (BEAKER) 1.25 mg/dL 0.57-1.25 (test code = 358) GLUCOSE RANDOM 361 mg/dL 70-105 H (BEAKER) (test code = 652) CALCIUM (BEAKER) 8.5 mg/dL 8.4-10.2 (test code = 697) EGFR (BEAKER) (test 41 mL/min/1.73 ESTIMA MAYRA GFR IS code = 1092) sq m NOT ACCURATE CREATININE CLEARANCE IN PREDICTING GLOMERULAR FILTRATION RATE . ESTIMATED GFR I S NOT APPLICABLE FOR DIALYSIS PATIEN TS. Measurement And Sensing Technician ID - EDASIPOCT-GLUCOSE [id number] 15:41:00 Test Item Value Reference Range Interpretation Comments POC-GLUCOSE METER 349 mg/dL 70-110 H : TESTED A T [facility] 6720 (BEAKER) (test code = [facility], 1538) [address]: Measurement And Sensing Technician/Techni suzette ID = [id number] for DA VIS, KEYAIRA POCT-GLUCOSE [id number] 11:18:00 Test Item Value Reference Range Interpretation Comments POC-GLUCOSE METER 360 mg/dL 70-110 H : TESTED A T [facility] 6720 (BEAKER) (test code = [facility], 1538) [address]: Measurement And Sensing Technician/Techni suzette ID = [id number] for DA VIS, KEYAIRA BASIC METABOLIC [id number] 10:41:00 Test Item Value Reference Range Interpretation Comments SODIUM (BEAKER) 133 meq/L 136-145 L (test code = 381) POTASSIUM (BEAKER) 4.3 meq/L 3.5-5.1 (test code = 379) CHLORIDE (BEAKER) 99 meq/L 98-107 (test code = 382) CO2 (BEAKER) (test 19 meq/L 22-29 L code = 355) BLOOD UREA NITROGEN 42 mg/dL 7-21 H (BEAKER) (test code = 354) CREATININE (BEAKER) 1.52 mg/dL 0.57-1.25 H (test code = 358) GLUCOSE RANDOM 467 mg/dL 70-105 HH (BEAKER) (test code = 652) CALCIUM (BEAKER) 8.6 mg/dL 8.4-10.2 (test code = 697) EGFR (BEAKER) (test 33 mL/min/1.73 ESTIMA MAYRA GFR IS code = 1092) sq m NOT ACCURATE CREATININE CLEARANCE IN PREDICTING GLOMERULAR FILTRATION RATE . ESTIMATED GFR I S NOT APPLICABLE FOR DIALYSIS PATIEN TS. Measurement And Sensing Technician ID - EDASIBASIC METABOLIC [id number] 09:16:00 Test Item Value Reference Range Interpretation Comments SODIUM (BEAKER) 133 meq/L 136-145 L (test code = 381) POTASSIUM (BEAKER) 5.2 meq/L 3.5-5.1 H (test code = 379) CHLORIDE (BEAKER) 97 meq/L 98-107 L (test code = 382) CO2 (BEAKER) (test 15 meq/L 22-29 L code = 355) BLOOD UREA NITROGEN 42 mg/dL 7-21 H (BEAKER) (test code = 354) CREATININE (BEAKER) 1.51 mg/dL 0.57-1.25 H (test code = 358) GLUCOSE RANDOM 584 mg/dL 70-105 HH (BEAKER) (test code = 652) CALCIUM (BEAKER) 9.3 mg/dL 8.4-10.2 (test code = 697) EGFR (BEAKER) (test 33 mL/min/1.73 ESTIMA MAYRA GFR IS code = 1092) sq m NOT ACCURATE CREATININE CLEARANCE IN PREDICTING GLOMERULAR FILTRATION RATE . ESTIMATED GFR I S NOT APPLICABLE FOR DIALYSIS PATIEN TS. Measurement And Sensing Technician ID - DBCBC W/PLT COUNT & AUTO [id number] 09:10:00 Test Item Value Reference Range Interpretation Comments WHITE BLOOD CELL COUNT (BEAKER) 16.4 K/ L 3.5-10.5 H (test code = 775) RED BLOOD CELL COUNT (BEAKER) 3.66 M/ L 3.93-5.22 L (test code = 761) HEMOGLOBIN (BEAKER) (test code = 10.8 GM/DL 11.2-15.7 L 410) HEMATOCRIT (BEAKER) (test code = 33.1 % 34.1-44.9 L 411) MEAN CORPUSCULAR VOLUME (BEAKER) 90.4 fL 79.4-94.8 (test code = 753) MEAN CORPUSCULAR HEMOGLOBIN 29.5 pg 25.6-32.2 (BEAKER) (test code = 751) MEAN CORPUSCULAR HEMOGLOBIN CONC 32.6 GM/DL 32.2-35.5 (BEAKER) (test code = 752) RED CELL DISTRIBUTION WIDTH 13.4 % 11.7-14.4 (BEAKER) (test code = 412) PLATELET COUNT (BEAKER) (test 256 K/CU MM 150-450 code = 756) MEAN PLATELET VOLUME (BEAKER) 11.1 fL 9.4-12.3 (test code = 754) NUCLEATED RED BLOOD CELLS 0 /100 WBC 0-0 (BEAKER) (test code = 413) (CELLAVISION MANUAL DIFF)2020-08-16 09:10:00 Test Item Value Reference Range Interpretation Comments NEUTROPHILS - REL 93 % (CELLAVISION)(BEAKER) (test code = 2816) LYMPHOCYTES - REL 2 % (CELLAVISION)(BEAKER) (test code = 2817) MONOCYTES - REL 3 % (CELLAVISION)(BEAKER) (test code = 2818) BANDS - REL (CELLAVISION)(BEAKER) 2 % 0-10 (test code = 2826) NEUTROPHILS - ABS 15.25 K/ul 1.56-6.13 H (CELLAVISION)(BEAKER) (test code = 2830) LYMPHOCYTES - ABS 0.33 K/ul 1.18-3.74 L (CELLAVISION)(BEAKER) (test code = 2831) MONOCYTES - ABS 0.49 K/uL 0.24-0.36 H (CELLAVISION)(BEAKER) (test code = 2832) BANDS - ABS (CELLAVISION)(BEAKER) 0.33 K/uL 0.00-0.80 (test code = 2840) TOTAL COUNTED (BEAKER) (test code 100 = 1351) WBC MORPHOLOGY (BEAKER) (test Normal code = 487) GIANT PLATELETS (BEAKER) (test Present code = 313) LARGE PLT(BEAKER) (test code = Present 2156) POLYCHROMATOPHILLIC RBCS(BEAKER) 1+ few (test code = 478) HYPOCHROMIA (BEAKER) (test code = 1+ few 963) ANISOCYTOSIS (BEAKER) (test code 1+ few = 961) POIKILOCYTES (BEAKER) (test code 3+ many = 966) SPHEROCYTES (BEAKER) (test code = 1+ few 768) OVALOCYTES (BEAKER) (test code = 1+ few 477) TRINIDAD CELLS (BEAKER) (test code = 2+ moderate 474) ARTIFACT (CELLAVISION)(BEAKER) Present (test code = 3432) PLATELET CONCENTRATION Adequate (CELLAVISION)(BEAKER) (test code = 3438) Measurement And Sensing Technician ID - Lisa Norwood comments: Slide comments:POCT-GLUCOSE METER 2020-08-16 08:51:00 Test Item Value Reference Range Interpretation Comments POC-GLUCOSE METER 472 mg/dL 70-110 HH : Notified RN/MD: (BEAKER) (test code = TESTED AT [place] [address]) [facility], [address]: Measurement And Sensing Technician/Techni suzette ID = [id number] for DA VIS, KEYAIRA POCT-GLUCOSE [id number] 07:39:00 Test Item Value Reference Range Interpretation Comments POC-GLUCOSE METER 492 mg/dL 70-110 HH : Verify w / Lab Draw: (BEAKER) (test code = TESTED AT [place] [address]) [facility], [address]: Measurement And Sensing Technician/Techni suzette ID = [id number] for DA VIS, KEYAIRA [id number] 05:45:00 Test Item Value Reference Range Interpretation Comments MAGNESIUM (BEAKER) (test code = 1.9 mg/dL 1.6-2.6 627) Measurement And Sensing Technician ID - [id number] 05:45:00 Test Item Value Reference Range Interpretation Comments PHOSPHORUS (BEAKER) (test code = 3.4 mg/dL 2.3-4.7 604) Measurement And Sensing Technician ID - EDASICALCIUM, [id number] 05:16:00 Test Item Value Reference Range Interpretation Comments CALCIUM IONIZED (BEAKER) (test 1.06 mmol/L 1.12-1.27 L code = 698) PH, BLOOD (BEAKER) (test code = 7.37 1810) POCT-GLUCOSE [id number] 21:22:00 Test Item Value Reference Range Interpretation Comments POC-GLUCOSE METER 287 mg/dL 70-110 H : TESTED A T [facility] 6720 (BEAKER) (test code = PAULETTE Bonilla [facility], 1538) [address]: Measurement And Sensing Technician/Techni suzette ID = [id number] for Kari Chew POCT-GLUCOSE [id number] 16:40:00 Test Item Value Reference Range Interpretation Comments POC-GLUCOSE METER 127 mg/dL 70-110 H : TESTED A T [facility] 6720 (BEAKER) (test code = [facility], 1538) [address]: Measurement And Sensing Technician/Techni suzette ID = [id number] for Tracey Singh RAD, PELVIS, 1 OR 2 [id number] 12:01:00Reason for exam:->[facility] 1935 Sex: FFINAL REPORT Radiograph of the left hip Reason for exam: post op Comparison: 08/15/2020 Discussion: Status post left hip total arthroplasty. Alignment is near-anatomic. Noacute fracture. There is expected postsurgical change in the left hip soft tissue. There is also ysub-aw-doeggywa right hip osteoarthritis. Sacrum is partially obscured by stool and bowel gas. Note is m lakeisha of peripheral vascular calcifications. Signed: Amanda Portillo Verified Date/Time: 112:01:50 Reading Location: [facility] C013X Ortho Consult Reading Room POCT-GLUCOSE [id number] 10:47:00 Test Item Value Reference Range Interpretation Comments POC-GLUCOSE METER 138 mg/dL 70-110 H : TESTED A T [facility] 6720 (BEMARIO) (test code = [place]ULETT[facility] Bon[facility], 1538) [address]: Measurement And Sensing Technician/Techni suzette ID = [id number] for PU LILY Lemus RAD, PELVIS, 1 OR 2 [id number] 10:20:00Reason for exam:->[facility] : 1935 Sex: FFINAL REPORT Radiograph of the pelvis Reason for exam: Total hip arthroplasty Comparison: No priors Discussion: A frontal view of the pelvis is obtained intraoperatively. Patient is undergoing left hip total arthroplasty. Acetabular cup is in place and there is a reamerin the femur. No acute fracture. Signed: Amanda Portillo Verified Date/Time: 08/15/2020 10:20:36 Reading Location: [address] Ortho Consult Reading Room POCT-GLUCOSE [id number] 08:04:00 Test Item Value Reference Range Interpretation Comments POC-GLUCOSE METER 356 mg/dL 70-110 H : TESTED A T [facility] 6720 (BEMARIO) (test code = PAULETTE Bonilla [facility], 1538) [address]: Measurement And Sensing Technician/Techni suzette ID = [id number] for CA PILAR, KALE CALCIUM, [id number] 06:57:00 Test Item Value Reference Range Interpretation Comments CALCIUM IONIZED (LENCHOAKER) (test 1.17 mmol/L 1.12-1.27 code = 698) PH, BLOOD (LENCHOAKER) (test code = 7.38 1810) CBC W/PLT COUNT & AUTO [id number] 06:52:00 Test Item Value Reference Range Interpretation Comments WHITE BLOOD CELL COUNT (BEAKER) 10.2 K/ L 3.5-10.5 (test code = 775) RED BLOOD CELL COUNT (BEAKER) 3.87 M/ L 3.93-5.22 L (test code = 761) HEMOGLOBIN (BEAKER) (test code = 11.4 GM/DL 11.2-15.7 410) HEMATOCRIT (BEAKER) (test code = 34.4 % 34.1-44.9 411) MEAN CORPUSCULAR VOLUME (BEAKER) 88.9 fL 79.4-94.8 (test code = 753) MEAN CORPUSCULAR HEMOGLOBIN 29.5 pg 25.6-32.2 (BEAKER) (test code = 751) MEAN CORPUSCULAR HEMOGLOBIN CONC 33.1 GM/DL 32.2-35.5 (BEAKER) (test code = 752) RED CELL DISTRIBUTION WIDTH 13.2 % 11.7-14.4 (BEAKER) (test code = 412) PLATELET COUNT (BEAKER) (test 233 K/CU MM 150-450 code = 756) MEAN PLATELET VOLUME (BEAKER) 10.8 fL 9.4-12.3 (test code = 754) NUCLEATED RED BLOOD CELLS 0 /100 WBC 0-0 (BEAKER) (test code = 413) NEUTROPHILS RELATIVE PERCENT 77 % (BEAKER) (test code = 429) LYMPHOCYTES RELATIVE PERCENT 9 % (BEAKER) (test code = 430) MONOCYTES RELATIVE PERCENT 10 % (BEAKER) (test code = 431) EOSINOPHILS RELATIVE PERCENT 3 % (BEAKER) (test code = 432) BASOPHILS RELATIVE PERCENT 0 % (BEAKER) (test code = 437) NEUTROPHILS ABSOLUTE COUNT 7.85 K/ L 1.56-6.13 H (BEAKER) (test code = 670) LYMPHOCYTES ABSOLUTE COUNT 0.93 K/ L 1.18-3.74 L (BEAKER) (test code = 414) MONOCYTES ABSOLUTE COUNT (BEAKER) 1.05 K/ L 0.24-0.36 H (test code = 415) EOSINOPHILS ABSOLUTE COUNT 0.26 K/ L 0.04-0.36 (BEAKER) (test code = 416) BASOPHILS ABSOLUTE COUNT (BEAKER) 0.04 K/ L 0.01-0.08 (test code = 417) IMMATURE GRANULOCYTES-RELATIVE 1 % 0-1 PERCENT (BEAKER) (test code = 2801) BASIC METABOLIC [id number] 06:49:00 Test Item Value Reference Range Interpretation Comments SODIUM (BEAKER) 135 meq/L 136-145 L (test code = 381) POTASSIUM (BEAKER) 4.2 meq/L 3.5-5.1 (test code = 379) CHLORIDE (BEAKER) 102 meq/L 98-107 (test code = 382) CO2 (BEAKER) (test 24 meq/L 22-29 code = 355) BLOOD UREA NITROGEN 20 mg/dL 7-21 (BEAKER) (test code = 354) CREATININE (BEAKER) 0.82 mg/dL 0.57-1.25 (test code = 358) GLUCOSE RANDOM 265 mg/dL 70-105 H (BEAKER) (test code = 652) CALCIUM (BEAKER) 8.7 mg/dL 8.4-10.2 (test code = 697) EGFR (BEAKER) (test 66 mL/min/1.73 ESTIMA MAYRA GFR IS code = 1092) sq m NOT ACCURATE CREATININE CLEARANCE IN PREDICTING GLOMERULAR FILTRATION RATE . ESTIMATED GFR I S NOT APPLICABLE FOR DIALYSIS PATIEN TS. Measurement And Sensing Technician ID - [id number] 06:49:00 Test Item Value Reference Range Interpretation Comments MAGNESIUM (BEAKER) (test code = 1.8 mg/dL 1.6-2.6 627) Measurement And Sensing Technician ID - [id number] 06:49:00 Test Item Value Reference Range Interpretation Comments PHOSPHORUS (BEAKER) (test code = 2.5 mg/dL 2.3-4.7 604) Measurement And Sensing Technician ID - EDASISARS-COV2/RT-PCR ([facility])2020-08-15 03:07:00 Test Item Value Reference Range Interpretation Comments SARS-COV2/RT-PCR (test Negative Not Detected, Negative, code = 4046751) See external report for linked test SARS-COV-2 PERFORMING LAB [facility] KAREN (test code = 4458762) Negative result for this test determines that SARS-CoV-2 RNA was not present in the specimen above the Limit of Detection (LOD). However, Negative results do not preclude SARS-CoV-2 infection and should not be used as the sole basis for treatment or patient management decisions. Negative results mustbe combined with clinical observations, patient history, and epidemiological information. A false negative result may occur if a specimen is improperly collected, transported or handled. A false negative result should be considered if patient's recent exposures or clinical presentation indicate that COVID-19 (SARS-CoV-2) is likely and diagnostic tests for other causes of illness are negative. Re-testing should be considered in cases of suspected false negatives.The limit of detection for this assay is 800 copies/mL.This SARS CoV-2 test is a real-time RT-PCR test intended for the qualitative detection of nucleic acid from SARS-CoV-2 in a nasopharyngeal swab specimen collected from individuals susp ected of COVID-19 by their healthcare provider.This test has not been Food and Drug Administration (FDA) cleared or approved. This is a modified version of an approved Emergency Use Authorization (EUA) and is in the process of review by the FDA. Once authorized by the FDA, the issued EUA will be effective until the declaration that circumstances exist justifying the authorization of the emergency use of in vitro diagnostic tests for detection and/or diagnosis of COVID-19 is terminated under Section 564(b)(2) of the Act or the EUA is revoked under Section 564(g) of the Act.Fact Sheet for Healthcare Providers:https://www.[employer]/sites/default/files/product/documents/Fact_Shee e_JZ_Quvuotyuz_Abbj_NGNE-IuD-4.pdfFact Sheet for Healthcare Patients:https://www.[employer]/sites/default/files/product/ documents/Ddwt_Svwie_Ynienpsf_Qdsb_NLKF-HuL-9.pdfPerforming Laboratory:[facility], [place] [address]GUMB-DFBWFON METER 2020-08-14 21:19:00 Test Item Value Reference Range Interpretation Comments POC-GLUCOSE METER 356 mg/dL 70-110 H : TESTED Maraih Burger [facility] 67[address] (REECE) (test code = [place], 1538) [address]: Measurement And Sensing Technician/Techni suzette ID = [id number] for DI MARCOS POCT-GLUCOSE [id number] 16:42:00 Test Item Value Reference Range Interpretation Comments POC-GLUCOSE METER 328 mg/dL 70-110 H : TESTED A T [facility] 6720 (BEAKER) (test code = [facility], 1538) [address]: Measurement And Sensing Technician/Techni suzette ID = [id number] for Tracey Singh POCT-GLUCOSE [id number] 12:20:00 Test Item Value Reference Range Interpretation Comments POC-GLUCOSE METER 284 mg/dL 70-110 H : TESTED A T [facility] 6720 (BEAKER) (test code = [facility], 1538) [address]: Measurement And Sensing Technician/Techni suzette ID = [id number] for Tracey Singh POCT-GLUCOSE [id number] 08:09:00 Test Item Value Reference Range Interpretation Comments POC-GLUCOSE METER 274 mg/dL 70-110 H : TESTED A T [facility] 6720 (BEAKER) (test code = [facility], 1538) [address]: Measurement And Sensing Technician/Techni suzette ID = [id number] for WESTLEY SHRESTHA [id number] 05:55:00 Test Item Value Reference Range Interpretation Comments PROCALCITONIN (BEAKER) (test code 0.29 ng/mL <0.05 H = 3036) SEPSIS RISK (ng/mL)Low: 0.05-0.50Intermediate: 0.51-2.00High: >=2.01TROPONIN [id number] 04:48:00 Test Item Value Reference Range Interpretation Comments TROPONIN I (BEAKER) (test code = 0.02 ng/mL 0.00-0.03 397) Troponin I (TnI) levels must be interpreted in the context of the presenting symptoms and the clinical findings. Elevated TnI levels indicate myocardial damage, but are not specific for ischemic heart disease. Elevated TnI levels are seen in patients with other cardiac conditions (including myocarditis and congestive heart failure), and slight TnI elevations occur in patients with other conditions, including sepsis, renal failure, acidosis, acute neurological disease, and persistent tachyarrhythmia.Measurement And Sensing Technician ID - EDASIB-TYPE NATRIURETIC FACTOR (BNP)2020-08-14 04:43:00 Test Item Value Reference Range Interpretation Comments B-TYPE NATRIURETIC PEPTIDE (BEAKER) 152 pg/mL 0-100 H (test code = 700) Measurement And Sensing Technician ID - EDASIBASIC METABOLIC [id number] 04:39:00 Test Item Value Reference Range Interpretation Comments SODIUM (BEAKER) 139 meq/L 136-145 (test code = 381) POTASSIUM (BEAKER) 4.3 meq/L 3.5-5.1 (test code = 379) CHLORIDE (BEAKER) 104 meq/L 98-107 (test code = 382) CO2 (BEAKER) (test 27 meq/L 22-29 code = 355) BLOOD UREA NITROGEN 20 mg/dL 7-21 (BEAKER) (test code = 354) CREATININE (BEAKER) 0.84 mg/dL 0.57-1.25 (test code = 358) GLUCOSE RANDOM 191 mg/dL 70-105 H (BEAKER) (test code = 652) CALCIUM (BEAKER) 8.6 mg/dL 8.4-10.2 (test code = 697) EGFR (BEAKER) (test 64 mL/min/1.73 ESTIMA MAYRA GFR IS code = 1092) sq m NOT ACCURATE CREATININE CLEARANCE IN PREDICTING GLOMERULAR FILTRATION RATE . ESTIMATED GFR I S NOT APPLICABLE FOR DIALYSIS PATIEN TS. Measurement And Sensing Technician ID - EDASIHEPATIC FUNCTION [id number] 04:39:00 Test Item Value Reference Range Interpretation Comments TOTAL PROTEIN (BEAKER) (test code = 6.2 gm/dL 6.0-8.3 770) ALBUMIN (BEAKER) (test code = 1145) 3.8 g/dL 3.5-5.0 BILIRUBIN TOTAL (BEAKER) (test code 1.1 mg/dL 0.2-1.2 = 377) BILIRUBIN DIRECT (BEAKER) (test 0.4 mg/dL 0.1-0.5 code = 706) ALKALINE PHOSPHATASE (BEAKER) (test 108 U/L 40-150 code = 346) AST (SGOT) (BEAKER) (test code = 18 U/L 5-34 353) ALT (SGPT) (BEAKER) (test code = 13 U/L 6-55 347) Measurement And Sensing Technician ID - EDASICBC W/PLT COUNT & AUTO [id number] 04:34:00 Test Item Value Reference Range Interpretation Comments WHITE BLOOD CELL COUNT (BEAKER) 10.7 K/ L 3.5-10.5 H (test code = 775) RED BLOOD CELL COUNT (BEAKER) 3.83 M/ L 3.93-5.22 L (test code = 761) HEMOGLOBIN (BEAKER) (test code = 11.0 GM/DL 11.2-15.7 L 410) HEMATOCRIT (BEAKER) (test code = 34.3 % 34.1-44.9 411) MEAN CORPUSCULAR VOLUME (BEAKER) 89.6 fL 79.4-94.8 (test code = 753) MEAN CORPUSCULAR HEMOGLOBIN 28.7 pg 25.6-32.2 (BEAKER) (test code = 751) MEAN CORPUSCULAR HEMOGLOBIN CONC 32.1 GM/DL 32.2-35.5 L (BEAKER) (test code = 752) RED CELL DISTRIBUTION WIDTH 13.2 % 11.7-14.4 (BEAKER) (test code = 412) PLATELET COUNT (BEAKER) (test 258 K/CU MM 150-450 code = 756) MEAN PLATELET VOLUME (BEAKER) 10.4 fL 9.4-12.3 (test code = 754) NUCLEATED RED BLOOD CELLS 0 /100 WBC 0-0 (BEAKER) (test code = 413) NEUTROPHILS RELATIVE PERCENT 81 % (BEAKER) (test code = 429) LYMPHOCYTES RELATIVE PERCENT 10 % (BEAKER) (test code = 430) MONOCYTES RELATIVE PERCENT 8 % (BEAKER) (test code = 431) EOSINOPHILS RELATIVE PERCENT 0 % (BEAKER) (test code = 432) BASOPHILS RELATIVE PERCENT 0 % (BEAKER) (test code = 437) NEUTROPHILS ABSOLUTE COUNT 8.61 K/ L 1.56-6.13 H (BEAKER) (test code = 670) LYMPHOCYTES ABSOLUTE COUNT 1.09 K/ L 1.18-3.74 L (BEAKER) (test code = 414) MONOCYTES ABSOLUTE COUNT (BEAKER) 0.86 K/ L 0.24-0.36 H (test code = 415) EOSINOPHILS ABSOLUTE COUNT 0.04 K/ L 0.04-0.36 (BEAKER) (test code = 416) BASOPHILS ABSOLUTE COUNT (BEAKER) 0.03 K/ L 0.01-0.08 (test code = 417) IMMATURE GRANULOCYTES-RELATIVE 0 % 0-1 PERCENT (BEAKER) (test code = 2801) LACTIC ACID, [id number] 04:30:00 Test Item Value Reference Range Interpretation Comments LACTATE BLOOD VENOUS (2) (BEAKER) 0.81 mmol/L 0.50-2.20 (test code = 2872) Measurement And Sensing Technician ID - EDASIPT/[id number] 04:23:00 Test Item Value Reference Range Interpretation Comments PROTIME (BEAKER) (test 13.3 seconds 11.9-14.2 code = 759) INR (BEAKER) (test 1.04 See_Comment [Automat ed code = 370) message] The sy stem which generated this result transmitted reference range : <=5.90. The reference range was not used to interpret this result as normal/abnormal . PARTIAL THROMBOPLASTIN 24.6 seconds 22.5-36.0 TIME (BEAKER) (test code = 760) Effective 10/10/2018: PT Reference Range ChangeNew: 11.9-14.2 Previous: 11.7- 14.7RECOMMENDED COUMADIN/WARFARIN INR THERAPY RANGESSTANDARD DOSE: 2.0-3.0 Includes: PROPHYLAXIS for venous thrombosis, systemic embolization; TREATMENT for venous thrombosis and/or pulmonary embolus.HIGH RISK: Target INR is2.5-3.5 for patients wiht mechanical heart valves.URINALYSIS W/ REFLEX URINE CULTURE 2020-08-14 04:13:00 Test Item Value Reference Range Interpretation Comments COLOR (BEAKER) (test code = 470) Yellow CLARITY (BEAKER) (test code = 469) Hazy SPECIFIC GRAVITY UA (BEAKER) (test 1.027 1.001-1.035 code = 468) PH UA (BEAKER) (test code = 467) 5.0 5.0-8.0 PROTEIN UA (BEAKER) (test code = 30 mg/dL Negative A 464) GLUCOSE UA (BEAKER) (test code = Negative Negative 365) KETONES UA (BEAKER) (test code = 10 mg/dL Negative A 371) BILIRUBIN UA (BEAKER) (test code = Negative Negative 462) BLOOD UA (BEAKER) (test code = 461) Moderate Negative A NITRITE UA (BEAKER) (test code = Negative Negative 465) LEUKOCYTE ESTERASE UA (BEAKER) Large Negative A (test code = 466) UROBILINOGEN UA (BEAKER) (test code 0.2 mg/dL 0.2-1.0 = 463) RBC UA (BEAKER) (test code = 519) 43 /HPF WBC UA (BEAKER) (test code = 520) 46 /HPF MUCUS (BEAKER) (test code = 1574) Moderate SQUAMOUS EPITHELIAL (BEAKER) (test 1 /HPF code = 516) SOURCE(BEAKER) (test code = 2795) Measurement And Sensing Technician ID - [auto]Measurement And Sensing Technician ID - tech
[2021-04-08 14:37] LABS: Basophils % 0.5 % (0-1.3); Hematocrit 36.6 % (36.0-45.0); Lymphocytes % 9.4 % (15.3-44.8); MPV 9.1 fL (7.6-11.3); RBC Red Blood Cell Count 3.98 M/uL (3.86-4.86)
--- NOTE | 2021-04-08 14:50 | RAD REPORT ---
EXAM DESCRIPTION: [place] Single View04/08/2021 2:45 pm CLINICAL HISTORY: Chest pain COMPARISON: none FINDINGS: The lungs appear clear of acute infiltrate. The heart is normal size IMPRESSION: No acute abnormalities displayed
[2021-04-08 14:57] LABS: Albumin 3.8 g/dL (3.4-5.0); Bilirubin Direct 0.4 mg/dL (0-0.2); Bilirubin Total 1.7 mg/dL (0.2-1.0); Potassium 4.8 mmol/L (3.5-5.1)
[2021-04-08] MEDS ORDERED: INSULIN -REGULAR HUMAN 50 UNIT/0.5 ML ML ONE ×2 (15:42→21:44)
[2021-04-08] MEDS ORDERED: GLUCAGON 1 MG/VIAL IM PRN (15:45)
[2021-04-08] MEDS ORDERED: D50W 25 GM/50 ML SYRINGE IV PRN (15:45)
[2021-04-08] MEDS ORDERED: NA CHLORIDE 0.9% 2,000 ML ONE (15:52)
[2021-04-08 15:57] LABS: Blood Morphology Comment NOT SEEN (NOT SEEN); Platelet Estimate ADEQ; White Blood Cell Scan OK (OK)
--- NOTE | 2021-04-08 15:59 | EDPHYS ---
Physician Documentation [facility] Name: Ester Sanchez Age: 86 yrs Sex: Female : 1935 Arrival Date: 04/08/2021 Time: 14:09 Bed 6 Private MD: ED Physician Richie Ca HPI: 04/08 15:57 This 86 yrs old Female presents to ER via EMS with complaints of High Blood Sugar. ma2 15:57 Onset: The symptoms/episode began/occurred gradually, 1 day(s) ago. Associated signs ma2 and symptoms: Pertinent negatives: anorexia, decreased urine output, dry skin, nausea. Current symptoms: In the emergency department the patient's symptoms are unchanged from the initial presentation. The patient has not experienced similar symptoms in the past. patient also has chest pain, chest pain resolved, patient has dm and takes insuline . Historical: - Allergies: 14:13 No Known Allergies; kd3 - Home Meds: 14:22 Humalog Sliding Scale [Active]; Lantus [Active]; bp - PMHx: 14:13 Diabetes - IDDM; Hypertension; kd3 - Immunization history:: Adult Immunizations up to date. - Social history:: Patient/guardian denies using alcohol, street drugs, The patient lives with family, Smoking status: Patient denies any tobacco usage or history of. - Family history:: not pertinent. ROS: 15:57 Constitutional: Negative for fever, chills, and weight loss. ma2 15:57 All other systems are negative. Exam: 15:57 Constitutional: This is a well developed, well nourished patient who is awake, alert, ma2 and in no acute distress. ENT: Nares patent. No nasal discharge, no septal abnormalities noted. Tympanic membranes are normal and external auditory canals are clear. Oropharynx with no redness, swelling, or masses, exudates, or evidence of obstruction, uvula midline. Mucous membranes moist. Neck: Trachea midline, no thyromegaly or masses palpated, and no cervical lymphadenopathy. Supple, full range of motion without nuchal rigidity, or vertebral point tenderness. No Meningismus. Chest/axilla: Normal chest wall appearance and motion. Nontender with no deformity. No lesions are appreciated. Cardiovascular: Regular rate and rhythm with a normal S1 and S2. No gallops, murmurs, or rubs. Normal PMI, no JVD. No pulse deficits. Respiratory: Lungs have equal breath sounds bilaterally, clear to auscultation and percussion. No rales, rhonchi or wheezes noted. No increased work of breathing, no retractions or nasal flaring. Abdomen/GI: Soft, non-tender, with normal bowel sounds. No distension or tympany. No guarding or rebound. No evidence of tenderness throughout. MS/ Extremity: Pulses equal, no cyanosis. Neurovascular intact. Full, normal range of motion. Neuro: Awake and alert, GCS 15, oriented to person, place, time, and situation. Cranial nerves II-XII grossly intact. Motor strength 5/5 in all extremities. Sensory grossly intact. Cerebellar exam normal. Normal gait. Vital Signs: 14:10 BP 182 / 82; Pulse 105; Resp 18; Temp 98.3; Pulse Ox 100% ; Weight 55 kg; kd3 14:41 BP 188 / 78; Pulse 97; Resp 16; Pulse Ox 100% on R/A; kd3 15:25 BP 168 / 61; Pulse 99; Resp 18; Pulse Ox 100% on R/A; kd3 16:30 BP 90 / 56; Pulse 102; Resp 16; Pulse Ox 98% ; kd3 18:28 BP 167 / 70; Pulse 94; Resp 16; Pulse Ox 100% on R/A; kd3 MDM: 14:11 Patient medically screened. ma2 15:57 Differential diagnosis: diabetes insipidus, DKA, hyperglycemia, hypoglycemic episode. ma2 Data reviewed: vital signs, nurses notes. Counseling: I had a detailed discussion with the patient and/or guardian regarding: the historical points, exam findings, and any diagnostic results supporting the discharge/admit diagnosis, the presence of at least one elevated blood pressure reading (>120/80) during this emergency department visit, the need for further work-up and treatment in the hospital. Response to treatment: the patient's symptoms have markedly improved after treatment. 04/08 14:12 Order name: Basic Metabolic Panel; Complete Time: 15:34 ma2 04/08 14:12 Order name: CBC with Diff ma2 04/08 14:12 Order name: Hepatic Function; Complete Time: 15:34 ma2 04/08 14:12 Order name: Lipase; Complete Time: 15:34 ma2 04/08 14:29 Order name: Glucose, Ancillary Testing; Complete Time: 14:33 [facility] 04/08 14:32 Order name: Troponin (emerg Dept Use Only); Complete Time: 15:34 [facility] 04/08 15:38 Order name: Osmolality, Serum [facility] 04/08 15:57 Order name: CBC Smear Scan [facility] 04/08 16:27 Order name: Acetone Level [facility] 04/08 16:27 Order name: Acetone Level [facility] 04/08 16:27 Order name: Basic Metabolic Panel [facility] 04/08 14:32 Order name: Chest Single View XRAY; Complete Time: 14:54 [facility] 04/08 16:27 Order name: Basic Metabolic Panel [facility] 04/08 16:34 Order name: Glucose, Ancillary Testing [facility] 04/08 16:35 Order name: Blood Culture [facility] 04/08 16:35 Order name: Urine Culture [facility] 04/08 16:41 Order name: SARS-COV-2 RT PCR [facility] 04/08 17:20 Order name: Glucose, Ancillary Testing [facility] 04/08 17:55 Order name: Glucose, Ancillary Testing [facility] 04/08 18:48 Order name: Glucose, Ancillary Testing [facility] 04/08 21:44 Order name: Glucose, Ancillary Testing [facility] 04/08 22:19 Order name: Hemoglobin A1c [facility] 04/08 14:12 Order name: IV Saline Lock; Complete Time: 14:18 [facility] 04/08 14:12 Order name: Labs collected and sent; Complete Time: 14:18 [facility] 04/08 16:27 Order name: NPO EDHI Administered Medications: 14:49 Drug: NS 0.9% 1000 ml Route: IV; Rate: 125 ml/hr; Site: left antecubital; kd3 16:02 Drug: Insulin Regular Human 10 units {Co-Signature: bp (Faisal Ocasio RN).} Route: IVP; kd3 Site: left antecubital; 18:15 Follow up: Response: Blood sugar is lowered kd3 16:03 Drug: NS 0.9% 1000 ml Route: IV; Rate: 1 bolus; Site: left antecubital; kd3 16:41 Drug: Insulin Drip - (Insulin Regular Human 100 units, NS 0.9% 100 ml) {Co-Signature: kd3 bp (Faisal Ocasio RN).} Route: IV; Rate: calculated rate; Site: right hand; 17:09 Drug: NS 0.9% 1000 ml Route: IV; Rate: 1 bolus; Site: right hand; kd3 18:16 Follow up: IV Status: Completed infusion; IV Intake: 1000ml kd3 Disposition Summary: 04/08/21 15:59 Hospitalization Ordered Hospitalization Status: Inpatient Admission la2 Provider: Caio Hill Location: Telemetry/[facility]Sur (Inpatient) ma2 Condition: Stable ma2 Problem: new ma2 Symptoms: are unchanged ma2 Bed/Room Type: Standard [facility] Room Assignment: [facility] Diagnosis - Diabetes mellitus due to underlying condition with ketoacidosis ma2 - Chest pain, unspecified ma2 Forms: - Medication Reconciliation Form ma2 - SBAR form la2 Signatures: Dispatcher [employer] EDFaisal Tejada, RN RN bp Richie Ca MD MD [facility] Prerna Remy RN RN 3 Faisal Ocasio RN bp Corrections: (The following items were deleted from the chart) 14:34 14:18 GLUCOSE+C.LAB.BRZ ordered. EDMS EDMS 16:41 16:14 CORONAVIRUS+MR.LAB.BRZ ordered. EDMS EDMS
--- NOTE | 2021-04-08 15:59 | ER ---
Nurse's Notes [facility] Name: Ester Sanchez Age: 86 yrs Sex: Female : 1935 Arrival Date: 04/08/2021 Time: 14:09 Bed 6 Private MD: Diagnosis: Diabetes mellitus due to underlying condition with ketoacidosis;Chest pain, unspecified Presentation: 04/08 14:10 Chief complaint: EMS states: REPORT RECEIVED FROM [facility]. PT FELT CHEST ACHING, kd3 RADIATING TO BILATERAL ARMS. PT'S DAUGHTER CALLED EMS TO PT HOUSE. EMS TOOK BLOOD GLUCOSE AND THE METER SAID HI. Coronavirus screen: At this time, the client does not indicate any symptoms associated with coronavirus-19. Ebola Screen: Patient negative for fever greater than or equal to 101.5 degrees Fahrenheit, and additional compatible Ebola Virus Disease symptoms No symptoms or risks identified at this time. Initial Sepsis Screen: Does the patient meet any 2 criteria? No. Patient's initial sepsis screen is negative. Does the patient have a suspected source of infection? No. Patient's initial sepsis screen is negative. Risk Assessment: Do you want to hurt yourself or someone else? Patient reports no desire to harm self or others. Onset of symptoms was April 08, 2021. 14:10 Method Of Arrival: EMS: [facility] kd3 14:21 Acuity: MARIELY 2 bp Triage Assessment: 14:19 General: Appears in no apparent distress. Behavior is calm, cooperative, appropriate bp for age. Pain: Denies pain. Historical: - Allergies: 14:13 No Known Allergies; kd3 - Home Meds: 14:22 Humalog Sliding Scale [Active]; Lantus [Active]; bp - PMHx: 14:13 Diabetes - IDDM; Hypertension; kd3 - Immunization history:: Adult Immunizations up to date. - Social history:: Patient/guardian denies using alcohol, street drugs, The patient lives with family, Smoking status: Patient denies any tobacco usage or history of. - Family history:: not pertinent. Screenin:20 Abuse screen: Denies threats or abuse. Denies injuries from another. Nutritional bp screening: No deficits noted. Tuberculosis screening: No symptoms or risk factors identified. Fall Risk IV access (20 points). Assessment: 14:20 Neuro: No deficits noted. Neuro: Level of Consciousness is awake, alert, obeys bp commands, Oriented to person, place, time, situation. Cardiovascular: No deficits noted. Patient's skin is warm and dry. Respiratory: No deficits noted. Airway is patent. GI: No deficits noted. : No deficits noted. EENT: No deficits noted. Derm: No deficits noted. Musculoskeletal: No deficits noted. 14:41 Reassessment: PT CURRENTLY REPORTS 0/10 PAIN. PT STATED THAT SHE HAD HAD CHEST PAIN kd3 THIS MORNING AT HOME BUT NOW WHITNEY PAIN. General: Appears in no apparent distress. Pain: Denies pain. 16:40 Reassessment: PT INITIAL BS 374. START INSULIN DRIP AT 6 UNITS PER HOUR. kd3 17:43 Reassessment: PT FOUND ATTEMPTING TO D/C OWN PIV AND MONITOR. BGL 266, INSULIN GTT TO 3 kd3 UNIT/HR PER PROTOCOL. DR DECKER PAGED 2/2 PT AGITATION. 18:19 Reassessment: Point of Contact (daughter) [phone]. 18:27 Reassessment: point of contact: Amee. relationship: cousin [phone]. kd3 18:29 Reassessment: No changes from previously documented assessment. kd3 Vital Signs: 14:10 BP 182 / 82; Pulse 105; Resp 18; Temp 98.3; Pulse Ox 100% ; Weight 55 kg; kd3 14:41 BP 188 / 78; Pulse 97; Resp 16; Pulse Ox 100% on R/A; kd3 15:25 BP 168 / 61; Pulse 99; Resp 18; Pulse Ox 100% on R/A; kd3 16:30 BP 90 / 56; Pulse 102; Resp 16; Pulse Ox 98% ; kd3 18:28 BP 167 / 70; Pulse 94; Resp 16; Pulse Ox 100% on R/A; kd3 ED Course: 14:09 Patient arrived in ED. ds1 14:10 Prerna Remy, ATIF is Primary Nurse. kd3 14:11 Richie Ca MD is Attending Physician. ma2 14:18 Inserted saline lock: 20 gauge in left antecubital area, using aseptic technique. bp 14:19 Arm band placed on right wrist. bp 14:20 Patient has correct armband on for positive identification. Bed in low position. Call bp light in reach. Side rails up X2. 14:22 Triage completed. bp 14:44 Chest Single View XRAY In Process Unspecified. EDMS 15:59 Caio Decker MD is Hospitalizing Provider. ma2 16:20 Inserted saline lock: 20 gauge in right hand, using aseptic technique. Blood collected. jl7 22:28 No provider procedures requiring assistance completed. Patient admitted, IV remains in df1 place. Administered Medications: 14:49 Drug: NS 0.9% 1000 ml Route: IV; Rate: 125 ml/hr; Site: left antecubital; kd3 16:02 Drug: Insulin Regular Human 10 units {Co-Signature: bp (Faisal Ocasio RN).} Route: IVP; kd3 Site: left antecubital; 18:15 Follow up: Response: Blood sugar is lowered kd3 16:03 Drug: NS 0.9% 1000 ml Route: IV; Rate: 1 bolus; Site: left antecubital; kd3 16:41 Drug: Insulin Drip - (Insulin Regular Human 100 units, NS 0.9% 100 ml) {Co-Signature: kd3 bp (Faisal Ocasio RN).} Route: IV; Rate: calculated rate; Site: right hand; 17:09 Drug: NS 0.9% 1000 ml Route: IV; Rate: 1 bolus; Site: right hand; kd3 18:16 Follow up: IV Status: Completed infusion; IV Intake: 1000ml kd3 Intake: 18:16 IV: 1000ml; Total: 1000ml. kd3 Outcome: 15:59 Decision to Hospitalize by Provider. ma2 22:28 Admitted to ICU accompanied by nurse. df1 22:28 Condition: stable 22:28 Instructed on the need for admit. 22:28 Patient left the ED. df1 Signatures: Dispatcher [employer] EDWV [employer] black ds1 Poonam Rendon RN RN ss Leal, Jahala, RN RN jl7 Peltier, Brian, RN RN bp Alzahri, Mohammad, MD MD ma2 Furlich, Dawn df1 Prerna Remy RN RN kd3 Faisal Ocasio RN bp Corrections: (The following items were deleted from the chart) 17:16 17:13 BP 90 / 56; Pulse 102bpm; Resp 16bpm; Pulse Ox 98%; kd3 kd3 18:16 14:10 BP 182 / 82; Pulse 105bpm; Resp 18bpm; Pulse Ox 100%; Temp 98.3F; kd3 kd3
[2021-04-08] MEDS ORDERED: INSULIN -REGULAR HUMAN 100 UNIT in NA CHLORIDE 0.9% 100 ML IV SCH (16:00)
[2021-04-08] MEDS ORDERED: ONDANSETRON 4 MG/2 ML VIAL IV PRN (16:21)
[2021-04-08] MEDS ORDERED: D5 0.45 NS 1,000 ML IV SCH (17:00)
[2021-04-08] MEDS ORDERED: NACHLORIDE 0.45% 1,000 ML with POTASSIUM CL 20 MEQ IV SCH ×2 (17:00)
[2021-04-08] MEDS ORDERED: NA CHLORIDE 0.9% 1,000 ML IV SCH (17:00)
[2021-04-08] MEDS ORDERED: Levofloxacin 750mg IV 750 MG/150 ML BAG IV SCH (17:00)
--- NOTE | 2021-04-08 17:30 | HP ---
Date of Admission: 04/08/2021 Reason For Admission: DKA. History Of Present Illness: This is an 86-year-old female with history of diabetes mellitus, who apparently found her glucose was very high at home up to 600. She called her daughter in [place] who advised her to go to emergency room and she was brought to the emergency room with the ambulance. On arrival, patient did not have any fevers, chills, night sweats. Her temperature was 98.3, heart rate 105, blood pressure 182/82. In the ER, chest x-ray was done upon evaluation and that was negative. Labs showed CBC with elevated white blood cell of 11.1, mild anemia with hemoglobin 11.6. CMP within normal except for sodium 134, glucose 600anion gap was at 21, and was started on IV insulin drip. Serum osmolality ordered but is still pending. Currently, patient sitting in bed. She looks comfortable. She is hard of hearing. No chest pain. No abdominal pain. No fever. No chills. Review of systems, otherwise, as below. Past Medical History: Significant for: 1. Diabetes mellitus. 2. She is on insulin. 3. Hypertension. Past Surgical History: Significant for none according to the patient. Allergies: NONE. Home Medications: Insulin sliding scale, as well as, Lantus. Social History: She is single, , have 1 daughter in [place]. Does not smoke or drink or use any drugs. She is retired. Family History: Both father and mother of old age according to the patient. Review of Systems: She denies any fever, chills, night sweats, dizziness, lightheaded, headache, blurred vision. She has no chest pain. No palpitations, PND, orthopnea, dyspnea on exertion. No lower extremity edema. No cough or sore throat. No nausea, vomiting, abdominal pain, change in bowel movement, diarrhea, constipation, dysuria, frequency, urgency, hematuria, history of depression, anxiety, seizure or stroke. Physical Examination: Vital Signs: Blood pressure is 168/61, respiratory rate 18, pulse 99, temperature 98.3, saturating 100% on room air. General: Patient is alert and oriented x3. Does not look in any distress. HEENT: Atraumatic, normocephalic. PERRLA. Oral mucosa is moist. Neck: Supple. No JVD. No carotid bruits. Chest: Clear to auscultation. Good air entry. Heart: Regular rate and rhythm. S1, S2 normal. No gallop, rub or murmur. Abdomen: Soft, nontender. No masses. No hepatosplenomegaly. Positive bowel sounds. Extremities: No clubbing, cyanosis, or edema. No calf tenderness. Neurologic: Grossly intact. Cranial nerve exam 2 through 12 are intact. Normal sensation. Normal reflexes. Normal muscle strength. Laboratory Data: Today showed CBC normal except for mild leukocytosis with mild anemia with hemoglobin 11.6. CMP within normal except for sodium 134, chloride 97, BUN of 30, creatinine 1.3, glucose 600, bilirubin 1.7, alkaline phosphatase of 136. Assessment And Plan: This is an 86-year-old female with history of diabetes, presented with the high glucose and found to have a diabetic ketoacidosis. 1. Diabetic ketoacidosis. We will admit patient to ICU. Start her on already IV fluid with normal saline and insulin drip until glucose [id number] half- normal. Patient will be n.p.o. at this point. We will proceed with further workup to rule out sepsis and check blood culture and urine culture. Start patient empirically on Levaquin. 2. Will check patient's hemoglobin A1c to evaluate her glucose control. 3. We will try to replace electrolytes as needed. 4. Deep vein thrombosis prophylaxis, on Lovenox. DEVEN/BINDU Voice ID: [id number] MTDD
[2021-04-08] MEDS ORDERED: D5 0.45 NS 1,000 ML IV ONE (18:46)
[2021-04-08 19:56] LABS: BUN Blood Urea Nitrogen 25 mg/dL (7-18); Bicarbonate 22 mmol/L (21-32); Glucose Level 134 mg/dL (74-106); Sodium Level 142 mmol/L (136-145)
[2021-04-08 20:56] VITALS: BP 118/78
[2021-04-08] MEDS ORDERED: INSULIN -REGULAR HUMAN 50 UNIT/0.5 ML ML SQ SCH (21:00)
--- NOTE | 2021-04-08 21:45 | P.DS ---
Admission Date: 04/08/21 Discharge Date: 04/08/21 Disposition: ROUTINE DISCHARGE Discharge Condition: GOOD Reason for Admission: DKA - Problems (1) DKA (diabetic ketoacidosis) Current Visit: Yes Status: Resolved Qualifiers: Diabetes mellitus type: other specified (including ISABELLA) Diabetes mellitus complication detail: without coma Qualified Code(s): E13.10 - Other specified diabetes mellitus with ketoacidosis without coma Brief History of Present Illness: Ms. Sacnhez is an 86 yo F with IDDM who was brought in by EMS for elevated blood glucose. DKA orders were initiated in the ED with IVF hydration and insulin drip. She was admitted for further care. She is asymptomatic at this time. Hospital Course: Ms. Sanchez is an 86 yo F with IDDM who presented for elevated blood sugar. On repeat BMP, her anion gap is 11, her BG level is 134, K 4.0, and her serum acetone is negative. She is able to tolerate PO, eating sandwich, fruit cup and diet soda at bedside. She was given short acting subQ insulin after her meal. Insulin drip and IVF hydration discontinued. Her VS stable. She is asymptomatic. She gave herself 20 units of Lantus this AM, and is going to give herself 20 units of Lantus tomorrow morning. Patient has had DM for over 50 years. She is clear on her insulin dosage for both long acting and sliding scale. She is adamant about going home tonight. She has been given strict criteria to return to the ED. She is deemed stable for discharge at this time. Vital Signs/Physical Exam: Temp Pulse Resp BP Pulse Ox 87 18 118/78 98 04/08/21 20:00 04/08/21 20:00 04/08/21 20:00 04/08/21 20:00 General: Alert, In no apparent distress HEENT: Atraumatic, PERRLA, EOMI Neck: Supple, JVD not distended Respiratory: Clear to auscultation bilaterally, Normal air movement Cardiovascular: Regular rate/rhythm, Normal S1 S2 Gastrointestinal: Normal bowel sounds, No tenderness Musculoskeletal: No tenderness Integumentary: No rashes Neurological: Normal gait, Normal speech, Normal tone, Normal affect Lymphatics: No axilla or inguinal lymphadenopathy Laboratory Data at Discharge: WBC 11.10 K/uL (4.3-10.9) H 04/08/21 14:25 Hgb 11.6 g/dL (12.0-15.0) L 04/08/21 14:25 Hct 36.6 % (36.0-45.0) 04/08/21 14:25 Plt Count 251 K/uL (152-406) 04/08/21 14:25 Sodium 142 mmol/L (136-145) 04/08/21 19:25 Potassium 4.0 mmol/L (3.5-5.1) 04/08/21 19:25 BUN 25 mg/dL (7-18) H 04/08/21 19:25 Creatinine 0.90 mg/dL (0.55-1.3) 04/08/21 19:25 Glucose 134 mg/dL (74-106) H 04/08/21 19:25 Total Bilirubin 1.7 mg/dL (0.2-1.0) H 04/08/21 14:25 AST 18 U/L (15-37) 04/08/21 14:25 ALT 19 U/L (12-78) 04/08/21 14:25 Alkaline Phosphatase 136 U/L (45-117) H 04/08/21 14:25 Lipase 114 U/L (73-393) 04/08/21 14:25 Physician Discharge Instructions: Give your long acting insulin in the AM as usual Continue sliding scale insulin with meals Follow up with your PCP within 10 days Return to the ED if your blood sugar becomes elevated greater than 400 Diet: ADA Activity: Ad uzma Followup: JULIANNA LEVINE [Primary Care Provider] - Time spent managing pt's care (in minutes): 70
[2021-04-08 22:37] VITALS: TEMP 98.3
[2021-04-08 22:43] VITALS: O2SAT 100
[2021-04-09] MEDS ORDERED: ENOXAPARIN 40 MG/0.4 ML SQ SCH (09:00)
== END 2021-04-08 22:27 | disposition home or self-care (01) | DRG 639 ==
LOC: ER 14:09 → ERHOLD 16:52
PROVIDERS: ADMIT Internal Medicine; ATTEND Internal Medicine
DX: E11.10 Type 2 diabetes mellitus with ketoacidosis without coma (principal); I10 Essential (primary) hypertension; Z20.822 Contact with and (suspected) exposure to COVID-19
CPT/HCPCS: 36415; 71045; 80048; 80076; 82010; 82947; 83036; 83690; 83930; 84484; 85025; 87040; 99285; J3480; J7030; J7799; U0003

== ENCOUNTER 2021-06-02 12:55 | Emergency (ER) | payer OTHER ==
--- OUTSIDE RECORDS SUMMARY | 2021-06-02 12:59 | XMS REPORT | Continuity of Care Document ---
:1935 Author Organization [facility] t Address [address] [place] [address] Dr. Osullivan [address] [place] [address] Care Team Providers Name Role Phone JUAN M MIXON Attending Clinician Unavailable Oksana MIXON Admitting Clinician Unavailable ATILIO QUARLES Admitting Clinician Unavailable Payers Payer Name Policy Type Policy Number Effective Date Expiration Date S speedy MEDICARE A B [id number] 2000 00:00:00 [employer] MEDICARE HMO [id number] 2013 POS 00:00:00 Problems This patient has [...] ID 2021-02-20 Inpatient ER JUNG MIXON Orthopaedic [id number] 100 SLEYuriy 11:09:33 JUAN M Results Test Description Test Time Test Comments Results Result Comments Source TISSUE EXAM 2020-08-24 Surgical Pathology 18:57:00 Report Case: [id number] Authorizing Provider: Johnny Gonzalez MD Collected: 08/15/2020 09:54 AM Ordering Location: [address] Received: 08/17/2020 09:04 AM Service Pathologist: Nabila Vega MD Specimen: Femoral Head,Left Hip LEFT FEMORAL HEAD, STATUS POST FRACTURE, HIP REPLACEMENT: - INTER-TRABECULAR HEMORRHAGE CONSISTENT WITH RECENT FRACTURE - DEGENERATIVE JOINT DISEASE - SEVERE OSTEOPENIA - NEGATIVE FOR MALIGNANCY Signing Pathologist Direct Phone Line: [phone] shandra signed by Nabila Vega MD on 08/24/2020 at 6:57 [id number]; [id number] fracture of neck of left femur, initial [...] hemorrhagic at the margin, trabeculated and firm. Shipyard Supervisor sections are submitted in A1-A3 following decalcification, with a margin in A1.CONSUELO Lomeli, HT (ASCP)PERFORMED POCT-GLUCOSE METER 2020-08-19 12:13:00 Test Item Value Reference Range Interpretation Comme nts POC-GLUCOSE METER (BEAKER) 162 mg/dL 70-110 H : TESTED AT [address] (test code = 1538) [facility] X, [address]: Electric Meter Installer Helper/Techni suzette ID = [id number] for BATOOL GUILLERMO POCT-GLUCOSE [id number] 08:40:00 Test Item Value Reference Range Interpretation Comments POC-GLUCOSE METER 381 mg/dL 70-110 H : TESTED A T [place] [address] (BEAKER) (test code = [facility], 1538) [address]: Electric Meter Installer Helper/Techni suzette ID = [id number] for BATOOL VICKERS BLOOD [id number] 07:00:00 Test Item Value Reference Range Interpretation Comments CULTURE (BEAKER) (test No growth in 5 days code = 1095) BLOOD [id number] 07:00:00 Test Item Value Reference Range Interpretation Comments CULTURE (BEAKER) (test No growth in 5 days code = 1095) CALCIUM, [id number] 06:28:00 Test Item Value Reference Range Interpretation Comments CALCIUM IONIZED (BEAKER) (test 1.08 mmol/L 1.12-1.27 L code = 698) PH, BLOOD (BEAKER) (test code = 7.46 1810) BASIC METABOLIC [id number] 06:27:00 Test Item Value Reference Range Interpretation [...] S NOT APPLICABLE FOR DIALYSIS PATIEN TS. Electric Meter Installer Helper ID - [id number] 06:27:00 Test Item Value Reference Range Interpretation Comments MAGNESIUM (BEAKER) (test code = 1.7 mg/dL 1.6-2.6 627) Electric Meter Installer Helper ID - [id number] 06:27:00 Test Item Value Reference Range Interpretation Comments PHOSPHORUS (BEAKER) (test code = 2.3 mg/dL 2.3-4.7 604) Electric Meter Installer Helper ID - BSCBC W/PLT COUNT & AUTO [id number] 05:56:00 Test Item Value Reference Range Interpretation [...] PERCENT (BEAKER) (test code = 2801) POCT-GLUCOSE [id number] 01:28:00 Test Item Value Reference Range Interpretation Comments POC-GLUCOSE METER 129 mg/dL 70-110 H : TESTED A T [facility] 6720 (BEAKER) (test code = [place], 1538) [address]: Electric Meter Installer Helper/Techni suzette ID = [id number] for Lloyd Antony POCT-GLUCOSE [id number] 00:27:00 Test Item Value Reference Range Interpretation Comments POC-GLUCOSE METER 48 mg/dL 70-110 L : TESTED A T [facility] 6720 (BEAKER) (test code = [facility], 1538) [address]: Electric Meter Installer Helper/Techni suzette ID = [id number] for DI REESE AM POCT-GLUCOSE [id number] 16:17:00 Test Item Value Reference Range Interpretation Comments POC-GLUCOSE METER 159 mg/dL 70-110 H : TESTED A T [facility] 6720 (BEAKER) (test code = [facility], 1538) [address]: Electric Meter Installer Helper/Techni suzette ID = [id number] for ARAM BELL POCT-GLUCOSE [id number] 12:38:00 Test Item Value Reference Range Interpretation Comments POC-GLUCOSE METER 158 mg/dL 70-110 H : TESTED A T [facility] 6720 (BEAKER) (test code = [facility], 153) [address]: Electric Meter Installer Helper/Techni suzette ID = [id number] for ARAM BELL COMPREHENSIVE METABOLIC [id number] 12:20:00 Test Item Value Reference Range Interpretation [...] S NOT APPLICABLE FOR DIALYSIS PATIEN TS. Electric Meter Installer Helper ID - LISA [id number] 12:20:00 Test Item Value Reference Range Interpretation Comments MAGNESIUM (BEAKER) (test code = 1.8 mg/dL 1.6-2.6 627) Electric Meter Installer Helper ID Angelina ORTA [id number] 12:20:00 Test Item Value Reference Range Interpretation Comments PHOSPHORUS (BEAKER) (test code = 2.2 mg/dL 2.3-4.7 L 604) Electric Meter Installer Helper ID - LISA FCBC W/PLT COUNT & AUTO [id number] 11:57:00 Test Item Value Reference Range Interpretation [...] PERCENT (BEAKER) (test code = 2801) POCT-GLUCOSE [id number] 07:24:00 Test Item Value Reference Range Interpretation Comments POC-GLUCOSE METER 295 mg/dL 70-110 H : Notified RN/MD: (REECE) (test code = TESTED AT [facility] 6720 1533) [facility], [address]: Electric Meter Installer Helper/Techni suzette ID = [id number] for ARAM BELL TROPONIN [id number] 05:48:00 Test Item Value Reference Range Interpretation Comments TROPONIN I (REECE) (test code = 0.74 ng/mL 0.00-0.03 [facility]) Troponin I (TnI) levels must be [...] failure, acidosis, acute neurological disease, and persistent tachyarrhythmia.Electric Meter Installer Helper ID - EDASIPOCT-GLUCOSE METER 2020-08-17 21:32:00 Test Item Value Reference Range Interpretation Comments POC-GLUCOSE METER 129 mg/dL 70-110 H : TESTED A T [facility] 6720 (BEAKER) (test code = [facility], 1538) [address]: Electric Meter Installer Helper/Techni suzette ID = [id number] for Kari Chew TROPONIN [id number] 20:31:00 Test Item Value Reference Range Interpretation [...] failure, acidosis, acute neurological disease, and persistent tachyarrhythmia.Electric Meter Installer Helper ID - DBPOCT-GLUCOSE METER 2020-08-17 16:39:00 Test Item Value Reference Range Interpretation Comments POC-GLUCOSE METER 136 mg/dL 70-110 H : TESTED A T [facility] 6720 (BEAKER) (test code = [facility], 1538) [address]: Electric Meter Installer Helper/Techni suzette ID = [id number] for Tracey Singh CT, CHEST WITH IV CONTRAST- PE TEST [id number] 15:33:00Reason for exam:- >TachycardiaWhat is the patient's sedation requirement?->No Sedation [facility] : 1935 Sex: [...] MDReport Verified Date/Time: 08/17/2020 15:33:41 Reading Location: [facility] Diagnostic Imaging Reading Room - [place] [address] RAD, CHEST, 1 VIEW, NON [id number] 11:43:00Reason for exam:->infectious evaluationShould this be performed at the bedside?->Yes [facility] : 1935 Sex: FFINAL REPORT INDICATION: infectious evaluation COMPARISON: None TECHNIQUE: Single frontal view of the chest. FINDINGS: Lungs and pleura: Clear lungs. Small bilateral effusionsHeart and mediastinum: Normal heart size. Unremarkable mediastinal contours.Osseous structures: Noacute abnormality.Other: None. IMPRESSION: Small bilateral effusions. No focal pneumonia. Signed: Alondra Perales Verified Date/Time: 08/17/2020 11:43:05 Reading Location: [facility] Radiology Reading Room POCT-GLUCOSE [id number] 11:18:00 Test Item Value Reference Range Interpretation Comments POC-GLUCOSE METER 261 mg/dL 70-110 H : TESTED A T [facility] 6720 (LENCHOMARIO) (test code = MOJGANANNMARIE Bonilla [facility], 1538) [address]: Electric Meter Installer Helper/Techni suzette ID = [id number] for Tracey Singh TROPONIN [id number] 10:17:00 Test Item Value Reference Range Interpretation Comments TROPONIN I (LENCHOMARIO) (test code = 0.90 ng/mL 0.00-0.03 [facility]) Troponin I (TnI) levels must be [...] failure, acidosis, acute neurological disease, and persistent tachyarrhythmia.Electric Meter Installer Helper ID - CIARRA CB-TYPE NATRIURETIC FACTOR (BNP)2020-08-17 09:48:00 Test Item Value Reference Range Interpretation Comments B-TYPE NATRIURETIC PEPTIDE (BEAKER) 383 pg/mL 0-100 H (test code = 700) Electric Meter Installer Helper ID - CIARRA [id number] 09:30:00 Test Item Value Reference Range Interpretation [...] within 95-100% range.CBC W/PLT COUNT & AUTO [id number] 07:21:00 Test Item Value Reference Range Interpretation [...] CONCENTRATION Adequate (CELLAVISION)(BEAKER) (test code = 3438) Electric Meter Installer Helper ID - Claire Malhotra comments: Slide comments:POCT-GLUCOSE METER 2020-08-17 06:15:00 Test Item Value Reference Range Interpretation Comments POC-GLUCOSE METER 302 mg/dL 70-110 H : TESTED A T [facility] 6720 (BEAKER) (test code = [place], 1538) [address]: Electric Meter Installer Helper/Techni suzette ID = [id number] for Ca Kari harris CALCIUM, [id number] 04:26:00 Test Item Value Reference Range Interpretation Comments CALCIUM IONIZED (BEAKER) (test 1.11 mmol/L 1.12-1.27 L code = 698) PH, BLOOD (BEAKER) (test code = 7.40 1810) TSH/FREE T4 IF [id number] 04:01:00 Test Item Value Reference Range Interpretation Comments THYROID STIMULATING HORMONE 0.416 uIU/mL 0.350-4.940 (BEAKER) (test code = 772) Electric Meter Installer Helper ID - EDASIBASIC METABOLIC [id number] 03:29:00 Test Item Value Reference Range Interpretation [...] 697) EGFR (BEAKER) (test 61 mL/min/1.73 ESTIMA MAYAR GFR IS code = 1092) sq m NOT ACCURATE CREATININE CLEARANCE IN PREDICTING GLOMERULAR FILTRATION RATE . ESTIMATED GFR I S NOT APPLICABLE FOR DIALYSIS PATIEN TS. Electric Meter Installer Helper ID - [id number] 03:29:00 Test Item Value Reference Range Interpretation Comments MAGNESIUM (BEAKER) (test code = 1.7 mg/dL 1.6-2.6 627) Electric Meter Installer Helper ID - [id number] 03:29:00 Test Item Value Reference Range Interpretation Comments PHOSPHORUS (BEAKER) (test code = 2.4 mg/dL 2.3-4.7 604) Electric Meter Installer Helper ID - EDASIPOCT-GLUCOSE [id number] 21:16:00 Test Item Value Reference Range Interpretation Comments POC-GLUCOSE METER 213 mg/dL 70-110 H : TESTED A T [facility] 6720 (BEAKER) (test code = [place], 1538) [address]: Electric Meter Installer Helper/Techni suzette ID = [id number] for Kari Chew BASIC METABOLIC [id number] 17:34:00 Test Item Value Reference Range Interpretation [...] S NOT APPLICABLE FOR DIALYSIS PATIEN TS. Electric Meter Installer Helper ID - EDASIPOCT-GLUCOSE [id number] 15:41:00 Test Item Value Reference Range Interpretation Comments POC-GLUCOSE METER 349 mg/dL 70-110 H : TESTED A T [facility] 6720 (BEAKER) (test code = [facility], 1538) [address]: Electric Meter Installer Helper/Techni suzette ID = [id number] for DA VIS, KEYAIRA POCT-GLUCOSE [id number] 11:18:00 Test Item Value Reference Range Interpretation Comments POC-GLUCOSE METER 360 mg/dL 70-110 H : TESTED A T [facility] 6720 (BEAKER) (test code = [facility], 1538) [address]: Electric Meter Installer Helper/Techni suzette ID = [id number] for DA VIS, KEYAIRA BASIC METABOLIC [id number] 10:41:00 Test Item Value Reference Range Interpretation [...] S NOT APPLICABLE FOR DIALYSIS PATIEN TS. Electric Meter Installer Helper ID - EDASIBASIC METABOLIC [id number] 09:16:00 Test Item Value Reference Range Interpretation [...] S NOT APPLICABLE FOR DIALYSIS PATIEN TS. Electric Meter Installer Helper ID - DBCBC W/PLT COUNT & AUTO [id number] 09:10:00 Test Item Value Reference Range Interpretation [...] CONCENTRATION Adequate (CELLAVISION)(BEAKER) (test code = 3438) Electric Meter Installer Helper ID - Lisa Norwood comments: Slide comments:POCT-GLUCOSE METER 2020-08-16 08:51:00 Test Item Value Reference Range Interpretation Comments POC-GLUCOSE METER 472 mg/dL 70-110 HH : Notified RN/MD: (BEAKER) (test code = TESTED AT [place] [address]) [facility], [address]: Electric Meter Installer Helper/Techni suzette ID = [id number] for DA VIS, KEYAIRA POCT-GLUCOSE [id number] 07:39:00 Test Item Value Reference Range Interpretation Comments POC-GLUCOSE METER 492 mg/dL 70-110 HH : Verify w / Lab Draw: (BEAKER) (test code = TESTED AT [place] [address]) [facility], [address]: Electric Meter Installer Helper/Techni suzette ID = [id number] for DA VIS, KEYAIRA [id number] 05:45:00 Test Item Value Reference Range Interpretation Comments MAGNESIUM (BEAKER) (test code = 1.9 mg/dL 1.6-2.6 627) Electric Meter Installer Helper ID - [id number] 05:45:00 Test Item Value Reference Range Interpretation Comments PHOSPHORUS (BEAKER) (test code = 3.4 mg/dL 2.3-4.7 604) Electric Meter Installer Helper ID - EDASICALCIUM, [id number] 05:16:00 Test Item Value Reference Range Interpretation Comments CALCIUM IONIZED (BEAKER) (test 1.06 mmol/L 1.12-1.27 L code = 698) PH, BLOOD (BEAKER) (test code = 7.37 1810) POCT-GLUCOSE [id number] 21:22:00 Test Item Value Reference Range Interpretation Comments POC-GLUCOSE METER 287 mg/dL 70-110 H : TESTED A T [facility] 6720 (BEAKER) (test code = PAULETTE Bonilla [facility], 1538) [address]: Electric Meter Installer Helper/Techni suzette ID = [id number] for Kari Chew POCT-GLUCOSE [id number] 16:40:00 Test Item Value Reference Range Interpretation Comments POC-GLUCOSE METER 127 mg/dL 70-110 H : TESTED A T [facility] 6720 (BEAKER) (test code = PAULETTE Bonilla [facility], 1538) [address]: Electric Meter Installer Helper/Techni suzette ID = [id number] for Tracey Singh RAD, PELVIS, 1 OR 2 [id number] 12:01:00Reason for exam:->post op [facility] : 1935 Sex: FFINAL REPORT Radiograph of the left hip Reason for exam: post op Comparison: 08/15/2020 Discussion: Status post left hip total arthroplasty. Alignment is near-anatomic. Noacute fracture. There is expected postsurgical change in the left hip soft tissue. There is also qipp-wx-wwqqwhcz right hip osteoarthritis. Sacrum is partially obscured by stool and bowel gas. Note is m lakeisha of peripheral vascular calcifications. Signed: Amanda Portillo Verified Date/Time: 112:01:50 Reading Location: [facility] C013X Ortho Consult Reading Room POCT-GLUCOSE [id number] 10:47:00 Test Item Value Reference Range Interpretation Comments POC-GLUCOSE METER 138 mg/dL 70-110 H : TESTED A T [facility] 6720 (BEMARIO) (test code = PAULETTE [place]illa [facility], 1538) [address]: Electric Meter Installer Helper/Techni suzette ID = [id number] for PU LILY Lemus RAD, PELVIS, 1 OR 2 [id number] 10:20:00Reason for exam:->Total hip arthrplastyCHI [facility]VENTIST [facility] VALLEJOName: ADRIANO VILLALBA : 1935 Sex: FFINAL REPORT Radiograph of the pelvis Reason for exam: Total hip arthroplasty Comparison: No priors Discussion: A frontal view of the pelvis is obtained intraoperatively. Patient is undergoing left hip total arthroplasty. Acetabular cup is in place and there is a reamerin the femur. No acute fracture. Signed: Amanda Portillo Verified Date/Time: 08/15/2020 10:20:36 Reading Location: [address] Ortho Consult Reading Room POCT-GLUCOSE [id number] 08:04:00 Test Item Value Reference Range Interpretation Comments POC-GLUCOSE METER 356 mg/dL 70-110 H : TESTED A T [facility] 6720 (BEMARIO) (test code = PAULETTE Bonilla [facility], 1538) [address]: Electric Meter Installer Helper/Techni suzette ID = [id number] for CA PILAR, KALE CALCIUM, [id number] 06:57:00 Test Item Value Reference Range Interpretation Comments CALCIUM IONIZED (LENCHOAKER) (test 1.17 mmol/L 1.12-1.27 code = 698) PH, BLOOD (LENCHOAKER) (test code = 7.38 1810) CBC W/PLT COUNT & AUTO [id number] 06:52:00 Test Item Value Reference Range Interpretation [...] (BEAKER) (test code = 2801) BASIC METABOLIC [id number] 06:49:00 Test Item Value Reference Range Interpretation [...] S NOT APPLICABLE FOR DIALYSIS PATIEN TS. Electric Meter Installer Helper ID - [id number] 06:49:00 Test Item Value Reference Range Interpretation Comments MAGNESIUM (BEAKER) (test code = 1.8 mg/dL 1.6-2.6 627) Electric Meter Installer Helper ID - [id number] 06:49:00 Test Item Value Reference Range Interpretation Comments PHOSPHORUS (BEAKER) (test code = 2.5 mg/dL 2.3-4.7 604) Electric Meter Installer Helper ID - EDASISARS-COV2/RT-PCR ([facility])2020-08-15 03:07:00 Test Item Value Reference Range Interpretation Comments SARS-COV2/RT-PCR (test Negative Not Detected, Negative, code = 0512234) See external report for linked test SARS-COV-2 PERFORMING LAB [facility] KAREN (test code = 0912013) Negative result for this test determines that [...] 564(g) of the Act.Fact Sheet for Healthcare Providers:https://www.Tap2print.myRete/sites/default/files/product/documents/Fact_Shee o_BM_Ucspvvdiu_Ptbt_MVYJ-BfT-9.pdfFact Sheet for Healthcare Patients:https://www.Tap2print.myRete/sites/default/files/product/ documents/Gejf_Hkqnp_Czlrzdxf_Cxvx_WQTH-AnL-2.pdfPerforming Laboratory:[facility], [place] [address]WKRG-OBSUWDY METER 2020-08-14 21:19:00 Test Item Value Reference Range Interpretation Comments POC-GLUCOSE METER 356 mg/dL 70-110 H : TESTED Mariah Burger [facility] 6720 (REECE) (test code = [place], 1538) [address]: Electric Meter Installer Helper/Techni suzette ID = [id number] for DI MARCOS POCT-GLUCOSE [id number] 16:42:00 Test Item Value Reference Range Interpretation Comments POC-GLUCOSE METER 328 mg/dL 70-110 H : TESTED A T [facility] 6720 (BEAKER) (test code = [facility], 1538) [address]: Electric Meter Installer Helper/Techni suzette ID = [id number] for Tracey Singh POCT-GLUCOSE [id number] 12:20:00 Test Item Value Reference Range Interpretation Comments POC-GLUCOSE METER 284 mg/dL 70-110 H : TESTED A T [facility] 6720 (BEAKER) (test code = [facility], 1538) [address]: Electric Meter Installer Helper/Techni suzette ID = [id number] for Tracey Singh POCT-GLUCOSE [id number] 08:09:00 Test Item Value Reference Range Interpretation Comments POC-GLUCOSE METER 274 mg/dL 70-110 H : TESTED A T [facility] 6720 (BEAKER) (test code = [facility], 1538) [address]: Electric Meter Installer Helper/Techni suzette ID = [id number] for WESTLEY SHRESTHA [id number] 05:55:00 Test Item Value Reference Range Interpretation Comments PROCALCITONIN (BEAKER) (test code 0.29 ng/mL <0.05 H = 3036) SEPSIS RISK (ng/mL)Low: 0.05-0.50Intermediate: 0.51-2.00High: >=2.01TROPONIN [id number] 04:48:00 Test Item Value Reference Range Interpretation [...] failure, acidosis, acute neurological disease, and persistent tachyarrhythmia.Electric Meter Installer Helper ID - EDASIB-TYPE NATRIURETIC FACTOR (BNP)2020-08-14 04:43:00 Test Item Value Reference Range Interpretation Comments B-TYPE NATRIURETIC PEPTIDE (BEAKER) 152 pg/mL 0-100 H (test code = 700) Electric Meter Installer Helper ID - EDASIBASIC METABOLIC [id number] 04:39:00 Test Item Value Reference Range Interpretation [...] S NOT APPLICABLE FOR DIALYSIS PATIEN TS. Electric Meter Installer Helper ID - EDASIHEPATIC FUNCTION [id number] 04:39:00 Test Item Value Reference Range Interpretation [...] (test code = 13 U/L 6-55 347) Electric Meter Installer Helper ID - EDASICBC W/PLT COUNT & AUTO [id number] 04:34:00 Test Item Value Reference Range Interpretation [...] (BEAKER) (test code = 2801) LACTIC ACID, [id number] 04:30:00 Test Item Value Reference Range Interpretation Comments LACTATE BLOOD VENOUS (2) (BEAKER) 0.81 mmol/L 0.50-2.20 (test code = 2872) Electric Meter Installer Helper ID - EDASIPT/[id number] 04:23:00 Test Item Value Reference Range Interpretation [...] = 516) SOURCE(BEAKER) (test code = 2795) Electric Meter Installer Helper ID - [auto]Electric Meter Installer Helper ID - tech
--- NOTE | 2021-06-02 13:27 | ER ---
Nurse's Notes [facility] Name: Ester Sanchez Age: 86 yrs Sex: Female : 1935 Arrival Date: 06/02/2021 Time: 12:57 Bed Waiting Private MD: Diagnosis: ED Course: 06/02 12:57 Patient arrived in ED. iw Administered Medications: No medications were administered Outcome: 13:27 Patient left the ED. jd3 Signatures: Johanne Willingham RN RN Gunner Denis RN RN jd3
== END 2021-06-02 13:27 | disposition left against medical advice (07) ==
LOC: ER 12:55
DX: Z02.9 Encounter for administrative examinations, unspecified (principal)

== ENCOUNTER 2021-10-05 15:38 | Inpatient (IN) | payer OTHER ==
--- OUTSIDE RECORDS SUMMARY | 2021-10-05 15:42 | XMS REPORT | Continuity of Care Document ---
:1935 Author Organization [facility] t Address [address] [place] [address] Dr. Osullivan [address] [place] [address] Care Team Providers Name Role Phone JUAN M MIXON Attending Clinician Unavailable Oksana MIXON Admitting Clinician Unavailable ATILIO QUARLES Admitting Clinician Unavailable Payers Payer Name Policy Type Policy Number Effective Date Expiration Date S speedy MEDICARE A B [id number] 2000 00:00:00 [employer] MEDICARE HMO [id number] 2013 POS 00:00:00 Problems This patient has [...] ID 2021-02-20 Inpatient ER JUNG MIXON Orthopaedic [id number] 100 SLEYuriy 11:09:33 JUAN M Results Test Description Test Time Test Comments Results Result Comments Source TISSUE EXAM 2020-08-24 Surgical Pathology 18:57:00 Report Case: [id number] Authorizing Provider: Johnny Gonzalez MD Collected: 08/15/2020 09:54 AM Ordering Location: [address] Received: 08/17/2020 09:04 AM Service Pathologist: Nabila Vega MD Specimen: Femoral Head,Left Hip LEFT FEMORAL HEAD, STATUS POST FRACTURE, HIP REPLACEMENT: - INTER-TRABECULAR HEMORRHAGE CONSISTENT WITH RECENT FRACTURE - DEGENERATIVE JOINT DISEASE - SEVERE OSTEOPENIA - NEGATIVE FOR MALIGNANCY Signing Pathologist Direct Phone Line: [phone] shandra signed by Nabila Vega MD on 08/24/2020 at 6:57 [id number]; [id number] fracture of neck of left femur, initial [...] hemorrhagic at the margin, trabeculated and firm. Scalloper sections are submitted in A1-A3 following decalcification, with a margin in A1.CONSUELO Lomeli, HT (ASCP)PERFORMED POCT-GLUCOSE METER 2020-08-19 12:13:00 Test Item Value Reference Range Interpretation Comme nts POC-GLUCOSE METER (BEAKER) 162 mg/dL 70-110 H : TESTED AT [address] (test code = 1538) [facility], [address]: Packing Machine Operator/Techni suzette ID = [id number] for BATOOL GUILLERMO POCT-GLUCOSE [id number] 08:40:00 Test Item Value Reference Range Interpretation Comments POC-GLUCOSE METER 381 mg/dL 70-110 H : TESTED A T [facility] 67 (BEAKER) (test code = PAULETTE Bonilla [facility], 1538) [address]: Packing Machine Operator/Techni suzette ID = [id number] for DA BATOOL GALO BLOOD [id number] 07:00:00 Test Item Value Reference Range Interpretation Comments CULTURE (BEAKER) (test No growth in 5 days code = 1095) BLOOD [id number] 07:00:00 Test Item Value Reference Range Interpretation Comments CULTURE (BEAKER) (test No growth in 5 days code = 1095) CALCIUM, [id number] 06:28:00 Test Item Value Reference Range Interpretation Comments CALCIUM IONIZED (BEAKER) (test 1.08 mmol/L 1.12-1.27 L code = 698) PH, BLOOD (BEAKER) (test code = 7.46 1810) BASIC METABOLIC [id number] 06:27:00 Test Item Value Reference Range Interpretation [...] S NOT APPLICABLE FOR DIALYSIS PATIEN TS. Packing Machine Operator ID - [id number] 06:27:00 Test Item Value Reference Range Interpretation Comments MAGNESIUM (BEAKER) (test code = 1.7 mg/dL 1.6-2.6 627) Packing Machine Operator ID - [id number] 06:27:00 Test Item Value Reference Range Interpretation Comments PHOSPHORUS (BEAKER) (test code = 2.3 mg/dL 2.3-4.7 604) Packing Machine Operator ID - BSCBC W/PLT COUNT & AUTO [id number] 05:56:00 Test Item Value Reference Range Interpretation [...] PERCENT (BEAKER) (test code = 2801) POCT-GLUCOSE [id number] 01:28:00 Test Item Value Reference Range Interpretation Comments POC-GLUCOSE METER 129 mg/dL 70-110 H : TESTED Mariah Burger [facility] 6720 (BEAKER) (test code = PAULETTE FUENTES [place], 1538) [address]: Packing Machine Operator/Techni suzette ID = [id number] for Lloyd Antony POCT-GLUCOSE [id number] 00:27:00 Test Item Value Reference Range Interpretation Comments POC-GLUCOSE METER 48 mg/dL 70-110 L : TESTED A T [facility] 6720 (BEAKER) (test code = [facility] Irene [facility], 1538) [address]: Packing Machine Operator/Techni suzette ID = [id number] for DI REESE AM POCT-GLUCOSE [id number] 16:17:00 Test Item Value Reference Range Interpretation Comments POC-GLUCOSE METER 159 mg/dL 70-110 H : TESTED A T [facility] 6720 (BEAKER) (test code = [facility], 1538) [address]: Packing Machine Operator/Techni suzette ID = [id number] for ARAM BELL POCT-GLUCOSE [id number] 12:38:00 Test Item Value Reference Range Interpretation Comments POC-GLUCOSE METER 158 mg/dL 70-110 H : TESTED A T [facility] 6720 (BEAKER) (test code = [facility], 1538) [address]: Packing Machine Operator/Techni suzette ID = [id number] for ARAM BELL COMPREHENSIVE METABOLIC [id number] 12:20:00 Test Item Value Reference Range Interpretation [...] S NOT APPLICABLE FOR DIALYSIS PATIEN TS. Packing Machine Operator ID - LISA [id number] 12:20:00 Test Item Value Reference Range Interpretation Comments MAGNESIUM (BEAKER) (test code = 1.8 mg/dL 1.6-2.6 627) Packing Machine Operator ID - LISA [id number] 12:20:00 Test Item Value Reference Range Interpretation Comments PHOSPHORUS (BEAKER) (test code = 2.2 mg/dL 2.3-4.7 L 604) Packing Machine Operator ID - LISA FCBC W/PLT COUNT & AUTO [id number] 11:57:00 Test Item Value Reference Range Interpretation [...] PERCENT (BEAKER) (test code = 2801) POCT-GLUCOSE [id number] 07:24:00 Test Item Value Reference Range Interpretation Comments POC-GLUCOSE METER 295 mg/dL 70-110 H : Notified RN/MD: (REECE) (test code = TESTED AT [facility] 6720 1538) [facility], [address]: Packing Machine Operator/Techni suzette ID = [id number] for ARAM BELL TROPONIN [id number] 05:48:00 Test Item Value Reference Range Interpretation Comments TROPONIN I (REECE) (test code = 0.74 ng/mL 0.00-0.03 [facility]) Troponin I (TnI) levels must be interpreted [...] failure, acidosis, acute neurological disease, and persistent tachyarrhythmia.Packing Machine Operator ID - EDASIPOCT-GLUCOSE METER 2020-08-17 21:32:00 Test Item Value Reference Range Interpretation Comments POC-GLUCOSE METER 129 mg/dL 70-110 H : TESTED A T [facility] 6720 (REECE) (test code = [facility], 1538) [address]: Packing Machine Operator/Techni suzette ID = [id number] for Kari Chew TROPONIN [id number] 20:31:00 Test Item Value Reference Range Interpretation Comments TROPONIN I (REECE) (test code = 1.05 ng/mL 0.00-0.03 397) [...] failure, acidosis, acute neurological disease, and persistent tachyarrhythmia.Packing Machine Operator ID - DBPOCT-GLUCOSE METER 2020-08-17 16:39:00 Test Item Value Reference Range Interpretation Comments POC-GLUCOSE METER 136 mg/dL 70-110 H : TESTED A T [facility] 6720 (REECE) (test code = [facility], 1538) [address]: Packing Machine Operator/Techni suzette ID = [id number] for Tracey Singh CT, CHEST WITH IV CONTRAST- PE TEST [id number] 15:33:00Reason for exam:- >TachycardiaWhat is the patient's sedation requirement?->No [facility] : 1935 Sex: FFINAL REPORT [...] MDReport Verified Date/Time: 08/17/2020 15:33:41 Reading Location: [facility] Diagnostic Imaging Reading Room - [place] [address] RAD, CHEST, 1 VIEW, NON [id number] 11:43:00Reason for exam:->infectious evaluationShould this be performed at the bedside?->Yes [facility] : 1935 Sex: FFINAL REPORT INDICATION: infectious evaluation COMPARISON: None TECHNIQUE: Single frontal view of the chest. FINDINGS: Lungs and pleura: Clear lungs. Small bilateral effusionsHeart and mediastinum: Normal heart size. Unremarkable mediastinal contours.Osseous structures: Noacute abnormality.Other: None. IMPRESSION: Small bilateral effusions. No focal pneumonia. Signed: Alondra Perales Verified Date/Time: 08/17/2020 11:43:05 Reading Location: [facility] Radiology Reading Room POCT-GLUCOSE [id number] 11:18:00 Test Item Value Reference Range Interpretation Comments POC-GLUCOSE METER 261 mg/dL 70-110 H : TESTED A T [facility] 6720 (REECE) (test code = PAULETTE Bonilla [facility], 1538) [address]: Packing Machine Operator/Techni suzette ID = [id number] for Tracey Singh TROPONIN [id number] 10:17:00 Test Item Value Reference Range Interpretation Comments TROPONIN I (REECE) (test code = 0.90 ng/mL 0.00-0.03 [facility]) Troponin I (TnI) levels must be interpreted [...] failure, acidosis, acute neurological disease, and persistent tachyarrhythmia.Packing Machine Operator ID - CIARRA CB-TYPE NATRIURETIC FACTOR (BNP)2020-08-17 09:48:00 Test Item Value Reference Range Interpretation Comments B-TYPE NATRIURETIC PEPTIDE (BEAKER) 383 pg/mL 0-100 H (test code = 700) Packing Machine Operator ID - CIARRA [id number] 09:30:00 Test Item Value Reference Range Interpretation [...] within 95-100% range.CBC W/PLT COUNT & AUTO [id number] 07:21:00 Test Item Value Reference Range Interpretation [...] CONCENTRATION Adequate (CELLAVISION)(BEAKER) (test code = 3438) Packing Machine Operator ID - Claire Malhotra comments: Slide comments:POCT-GLUCOSE METER 2020-08-17 06:15:00 Test Item Value Reference Range Interpretation Comments POC-GLUCOSE METER 302 mg/dL 70-110 H : [facility] (BEAKER) (test code = [place], 1538) [address]: Packing Machine Operator/Techni suzette ID = [id number] for Ca steven Kari CALCIUM, [id number] 04:26:00 Test Item Value Reference Range Interpretation Comments CALCIUM IONIZED (BEAKER) (test 1.11 mmol/L 1.12-1.27 L code = 698) PH, BLOOD (BEAKER) (test code = 7.40 1810) TSH/FREE T4 IF [id number] 04:01:00 Test Item Value Reference Range Interpretation Comments THYROID STIMULATING HORMONE 0.416 uIU/mL 0.350-4.940 (BEAKER) (test code = 772) Packing Machine Operator ID - AUNDREAASIBASIC METABOLIC [id number] 03:29:00 Test Item Value Reference Range Interpretation [...] S NOT APPLICABLE FOR DIALYSIS PATIEN TS. Packing Machine Operator ID - [id number] 03:29:00 Test Item Value Reference Range Interpretation Comments MAGNESIUM (BEAKER) (test code = 1.7 mg/dL 1.6-2.6 627) Packing Machine Operator ID - [id number] 03:29:00 Test Item Value Reference Range Interpretation Comments PHOSPHORUS (BEAKER) (test code = 2.4 mg/dL 2.3-4.7 604) Packing Machine Operator ID - EDASIPOCT-GLUCOSE [id number] 21:16:00 Test Item Value Reference Range Interpretation Comments POC-GLUCOSE METER 213 mg/dL 70-110 H : [facility] (BEAKER) (test code = [place], 1538) [address]: Packing Machine Operator/Techni suzette ID = [id number] for Kari Chew BASIC METABOLIC [id number] 17:34:00 Test Item Value Reference Range Interpretation [...] S NOT APPLICABLE FOR DIALYSIS PATIEN TS. Packing Machine Operator ID - EDASIPOCT-GLUCOSE [id number] 15:41:00 Test Item Value Reference Range Interpretation Comments POC-GLUCOSE METER 349 mg/dL 70-110 H : TESTED A T [facility] 6720 (BEAKER) (test code = [facility], 1538) [address]: Packing Machine Operator/Techni suzette ID = [id number] for DA VIS, KEYAIRA POCT-GLUCOSE [id number] 11:18:00 Test Item Value Reference Range Interpretation Comments POC-GLUCOSE METER 360 mg/dL 70-110 H : TESTED A T [facility] 6720 (BEAKER) (test code = [facility], 1538) [address]: Packing Machine Operator/Techni suzette ID = [id number] for DA VIS, KEYAIRA BASIC METABOLIC [id number] 10:41:00 Test Item Value Reference Range Interpretation [...] S NOT APPLICABLE FOR DIALYSIS PATIEN TS. Packing Machine Operator ID - EDASIBASIC METABOLIC [id number] 09:16:00 Test Item Value Reference Range Interpretation [...] S NOT APPLICABLE FOR DIALYSIS PATIEN TS. Packing Machine Operator ID - DBCBC W/PLT COUNT & AUTO [id number] 09:10:00 Test Item Value Reference Range Interpretation [...] CONCENTRATION Adequate (CELLAVISION)(BEAKER) (test code = 3438) Packing Machine Operator ID - Lisa Norwood comments: Slide comments:POCT-GLUCOSE METER 2020-08-16 08:51:00 Test Item Value Reference Range Interpretation Comments POC-GLUCOSE METER 472 mg/dL 70-110 HH : Notified RN/MD: (BEAKER) (test code = TESTED AT [place] [address]) [facility], [address]: Packing Machine Operator/Techni suzette ID = [id number] for DA VIS, KEYAIRA POCT-GLUCOSE [id number] 07:39:00 Test Item Value Reference Range Interpretation Comments POC-GLUCOSE METER 492 mg/dL 70-110 HH : Verify w / Lab Draw: (BEAKER) (test code = TESTED AT [place] [address]) [facility], [address]: Packing Machine Operator/Techni suzette ID = [id number] for DA VIS, KEYAIRA [id number] 05:45:00 Test Item Value Reference Range Interpretation Comments MAGNESIUM (BEAKER) (test code = 1.9 mg/dL 1.6-2.6 627) Packing Machine Operator ID - [id number] 05:45:00 Test Item Value Reference Range Interpretation Comments PHOSPHORUS (BEAKER) (test code = 3.4 mg/dL 2.3-4.7 604) Packing Machine Operator ID - EDASICALCIUM, [id number] 05:16:00 Test Item Value Reference Range Interpretation Comments CALCIUM IONIZED (BEAKER) (test 1.06 mmol/L 1.12-1.27 L code = 698) PH, BLOOD (BEAKER) (test code = 7.37 1810) POCT-GLUCOSE [id number] 21:22:00 Test Item Value Reference Range Interpretation Comments POC-GLUCOSE METER 287 mg/dL 70-110 H : TESTED A T [facility] 6720 (BEAKER) (test code = PAULETTE Bonilla [place], 1538) [address]: Packing Machine Operator/Techni suzette ID = [id number] for Kari Chew POCT-GLUCOSE [id number] 16:40:00 Test Item Value Reference Range Interpretation Comments POC-GLUCOSE METER 127 mg/dL 70-110 H : TESTED A T [facility] 6720 (REECE) (test code = PAULETTE Bonilla [facility], 1538) [address]: Packing Machine Operator/Techni suzette ID = [id number] for Tracey Singh RAD, PELVIS, 1 OR 2 [id number] 12:01:00Reason for exam:->[facility] : 1935 Sex: FFINAL REPORT Radiograph of the left hip Reason for exam: post op Comparison: 08/15/2020 Discussion: Status post left hip total arthroplasty. Alignment is near-anatomic. Noacute fracture. There is expected postsurgical change in the left hip soft tissue. There is also bxkr-md-bfvniwkt right hip osteoarthritis. Sacrum is partially obscured by stool and bowel gas. Note is m lakeisha of peripheral vascular calcifications. Signed: Amanda Portillo Verified Date/Time: 112:01:50 Reading Location: [facility] C013X Ortho Consult Reading Room POCT-GLUCOSE [id number] 10:47:00 Test Item Value Reference Range Interpretation Comments POC-GLUCOSE METER 138 mg/dL 70-110 H : TESTED A T [facility] 6720 (BEMARIO) (test code = PAULETTE Bonilla [facility], 1538) [address]: Packing Machine Operator/Techni suzette ID = [id number] for LILY GUZMAN RAD, PELVIS, 1 OR 2 [id number] 10:20:00Reason for exam:->[facility] : 1935 Sex: FFINAL REPORT Radiograph of the pelvis Reason for exam: Total hip arthroplasty Comparison: No priors Discussion: A frontal view of the pelvis is obtained intraoperatively. Patient is undergoing left hip total arthroplasty. Acetabular cup is in place and there is a reamerin the femur. No acute fracture. Signed: Amanda Portillo Verified Date/Time: 08/15/2020 10:20:36 Reading Location: [address] Ortho Consult Reading Room POCT-GLUCOSE [id number] 08:04:00 Test Item Value Reference Range Interpretation Comments POC-GLUCOSE METER 356 mg/dL 70-110 H : TESTED A T [facility] 6720 (BEAKER) (test code = PAULETTE Bonilla [facility], 1538) [address]: Packing Machine Operator/Techni suzette ID = [id number] for CA BENJA QUEZADAIA CALCIUM, [id number] 06:57:00 Test Item Value Reference Range Interpretation Comments CALCIUM IONIZED (BEAKER) (test 1.17 mmol/L 1.12-1.27 code = 698) PH, BLOOD (BEAKER) (test code = 7.38 1810) CBC W/PLT COUNT & AUTO [id number] 06:52:00 Test Item Value Reference Range Interpretation [...] (BEAKER) (test code = 2801) BASIC METABOLIC [id number] 06:49:00 Test Item Value Reference Range Interpretation [...] S NOT APPLICABLE FOR DIALYSIS PATIEN TS. Packing Machine Operator ID - [id number] 06:49:00 Test Item Value Reference Range Interpretation Comments MAGNESIUM (BEAKER) (test code = 1.8 mg/dL 1.6-2.6 627) Packing Machine Operator ID - [id number] 06:49:00 Test Item Value Reference Range Interpretation Comments PHOSPHORUS (BEAKER) (test code = 2.5 mg/dL 2.3-4.7 604) Packing Machine Operator ID - EDASISARS-COV2/RT-PCR ([facility])2020-08-15 03:07:00 Test Item Value Reference Range Interpretation Comments SARS-COV2/RT-PCR (test Negative Not Detected, Negative, code = 3983934) See external report for linked test SARS-COV-2 PERFORMING LAB [facility] KAREN (test code = 3343182) Negative result for this test determines that [...] 564(g) of the Act.Fact Sheet for Healthcare Providers:https://www.[employer]/sites/default/files/product/documents/Fact_Shee a_YX_Egvceglge_Vhre_MNED-XgP-5.pdfFact Sheet for Healthcare Patients:https://www.[employer]underkin[employer]/sites/default/files/product/ documents/Srxb_Gvyah_Gemeikhv_Nsvs_ZBDI-IaO-5.pdfPerforming Laboratory:[facility], [place] [address]BVGP-CURGBJB METER 2020-08-14 21:19:00 Test Item Value Reference Range Interpretation Comments POC-GLUCOSE METER 356 mg/dL 70-110 H : TESTED Mariah Burger [facility] 6720 (REECE) (test code = PAULETTE Bonilla [facility], 1538) [address]: Packing Machine Operator/Techni suzette ID = [id number] for DI MARCOS POCT-GLUCOSE [id number] 16:42:00 Test Item Value Reference Range Interpretation Comments POC-GLUCOSE METER 328 mg/dL 70-110 H : TESTED A T [facility] 6720 (BEAKER) (test code = [facility], 1538) [address]: Packing Machine Operator/Techni suzette ID = [id number] for Tracey Singh POCT-GLUCOSE [id number] 12:20:00 Test Item Value Reference Range Interpretation Comments POC-GLUCOSE METER 284 mg/dL 70-110 H : TESTED A T [facility] 6720 (BEAKER) (test code = [facility], 1538) [address]: Packing Machine Operator/Techni suzette ID = [id number] for Tracey Singh POCT-GLUCOSE [id number] 08:09:00 Test Item Value Reference Range Interpretation Comments POC-GLUCOSE METER 274 mg/dL 70-110 H : TESTED A T [facility] 6720 (BEAKER) (test code = [facility], 1538) [address]: Packing Machine Operator/Techni suzette ID = [id number] for WESTLEY SHRESTHA [id number] 05:55:00 Test Item Value Reference Range Interpretation Comments PROCALCITONIN (BEAKER) (test code 0.29 ng/mL <0.05 H = 3036) SEPSIS RISK (ng/mL)Low: 0.05-0.50Intermediate: 0.51-2.00High: >=2.01TROPONIN [id number] 04:48:00 Test Item Value Reference Range Interpretation [...] failure, acidosis, acute neurological disease, and persistent tachyarrhythmia.Packing Machine Operator ID - EDASIB-TYPE NATRIURETIC FACTOR (BNP)2020-08-14 04:43:00 Test Item Value Reference Range Interpretation Comments B-TYPE NATRIURETIC PEPTIDE (BEAKER) 152 pg/mL 0-100 H (test code = 700) Packing Machine Operator ID - EDASIBASIC METABOLIC [id number] 04:39:00 Test Item Value Reference Range Interpretation [...] S NOT APPLICABLE FOR DIALYSIS PATIEN TS. Packing Machine Operator ID - EDASIHEPATIC FUNCTION [id number] 04:39:00 Test Item Value Reference Range Interpretation [...] (test code = 13 U/L 6-55 347) Packing Machine Operator ID - EDASICBC W/PLT COUNT & AUTO [id number] 04:34:00 Test Item Value Reference Range Interpretation [...] (BEAKER) (test code = 2801) LACTIC ACID, [id number] 04:30:00 Test Item Value Reference Range Interpretation Comments LACTATE BLOOD VENOUS (2) (BEAKER) 0.81 mmol/L 0.50-2.20 (test code = 2872) Packing Machine Operator ID - EDASIPT/[id number] 04:23:00 Test Item Value Reference Range Interpretation [...] = 516) SOURCE(BEAKER) (test code = 2795) Packing Machine Operator ID - [auto]Packing Machine Operator ID - tech
[2021-10-05 16:11] LABS: Protime INR 1.04
[2021-10-05] MEDS ORDERED: DOPAMINE/D5W 400 MG/250 ML BAG IV ONE (16:11)
[2021-10-05 16:14] LABS: Arterial Blood Carboxyhemoglob 0.5 % (0-1.5); Blood Gas Oxyhemoglobin 97.5 % (94-97); Blood O2 Saturation 99.2 % (92-98.5)
[2021-10-05] MEDS ORDERED: INSULIN -REGULAR HUMAN 50 UNIT/0.5 ML ML ONE (16:20)
[2021-10-05] MEDS ORDERED: SODIUM BICARB 50 MEQ/50ML VIAL ONE ×2 (16:20→16:24)
[2021-10-05 16:23] LABS: Absolute Lymphocytes (CBC) 1.7 K/uL (0.7-4.9); Hematocrit 37.5 % (36.0-45.0); Lymphocytes % 12.4 % (15.3-44.8); MPV 9.5 fL (7.6-11.3); RBC Red Blood Cell Count 3.51 M/uL (3.86-4.86)
[2021-10-05 16:30] LABS: ALT/SGPT 45 U/L (12-78); AST/SGOT 143 U/L (15-37); Albumin 2.9 g/dL (3.4-5.0); Alkaline Phosphatase 123 U/L (45-117); BUN Blood Urea Nitrogen 70 mg/dL (7-18); Bilirubin Total 0.5 mg/dL (0.2-1.0); Glomerular Filtration Rate 13 ml/min (=/>90); NT PRO-BNP 11230 pg/mL (<450); Protein, Total 5.7 g/dL (6.4-8.2); Sodium Level 131 mmol/L (136-145)
[2021-10-05 16:32] LABS: Bicarbonate < 8 mmol/L (21-32); Glucose Level 1429 mg/dL (74-106); Potassium 7.7 mmol/L (3.5-5.1); Troponin High Sensitivity 3749.3 pg/mL (<58.9)
[2021-10-05] MEDS ORDERED: NA CHLORIDE 0.9% 1,000 ML ONE (16:38)
[2021-10-05] MEDS ORDERED: CALCIUM GLUCONATE 1 GM IVPB 2 GM/100 ML BAG IV ONE (16:39)
[2021-10-05] MEDS ORDERED: NOREPINEPHRINE 4mg/D5W 250mL 4 MG/250 ML BAG IV ONE (16:42)
--- NOTE | 2021-10-05 16:57 | RAD REPORT ---
EXAM DESCRIPTION: RAD - Chest Single View - 10/05/2021 4:39 pm CLINICAL HISTORY: unresponsive, hypotension COMPARISON: Chest 04/08/2021 TECHNIQUE: AP portable chest image was obtained 10/05/2021 4:39 pm . FINDINGS: Endotracheal tube is in place the tip the T4 level. This is approximately 7 cm above the c orion. Advancement of the ET tube approximately 3 cm would be more optimal position. NG/OG tube has been placed. Tip extends below the diaphragm, off the field of view. Baseline chronic interstitial lung changes are evident. Irregular 2 centimeter nodular density presen t in the left midlung field with a 2 centimeter density seen lateral left upper lung field near the p leura. No diffuse pulmonary edema. Heart and vasculature are normal. No measurable pleural effusion and no pneumothorax. No acute bony abnormality seen. No acute aortic findings suspected. IMPRESSION: Endotracheal tube is in place with the tip at the T4 level 7 cm above the gerry. Advanc ement of the tube approximately 3 cm would be more optimal positioning. NG tube extends below the diaphragm, off the field of view. Focal nodular mass densities in the mid and upper left lung field with no diffuse pulmonary edema or area of consolidation.
[2021-10-05] MEDS ORDERED: D5W 1,000 ML with NA BICARB 8.4% 150 MEQ IV SCH ×2 (17:00)
[2021-10-05] MEDS ORDERED: NOREPINEPHRINE 4 MG in D5W 250 ML IV SCH (17:00)
[2021-10-05] MEDS ORDERED: MIDAZOLAM HCL 2 MG/2 ML INJ ONE (17:19)
[2021-10-05] MEDS ORDERED: NA CHLORIDE 0.9% 100 ML ONE (17:33)
[2021-10-05] MEDS ORDERED: PIPERACIL/TAZO 3.375 GM VIAL IV ONE (17:33)
--- NOTE | 2021-10-05 17:33 | RAD REPORT ---
EXAM DESCRIPTION: CT - Chest Abd Pelvis Wo Con - 10/05/2021 5:13 pm CLINICAL HISTORY: found down, possible trauma, unresponsive, intubated COMPARISON: Chest Single View dated 10/05/2021 TECHNIQUE: Axial 5 millimeter thick images of the chest, abdomen and pelvis were obtained without IV contrast. Oral contrast was administered. All CT scans are performed using dose optimization technique as appropriate and may include automated exposure control or mA/KV adjustment according to patient size. FINDINGS: No pulmonary edema, mass, infiltrate or acute finding of the lung parenchyma. The 2 focal chest no densities superimposed on mid and upper left lung field are not present in the pleura or par enchyma. These appear to be material on the skin surface. No pneumothorax or pleural effusion. No ch est wall mass or abnormal axillary lymphadenopathy seen. Mediastinal and hilar regions show no mass or lymphadenopathy. No significant cardiac finding. Endotracheal tube is in place terminating approximately 3 cm above the aortic arch. Advancement of th e tube 3 cm would be more optimal positioning. NG tube is well positioned within the stomach. No cardiomegaly or pericardial effusion. Liver shows fatty infiltration pattern. No focal liver lesions seen on noncontrast imaging. Pancreas is not well defined. No large pancreatic mass seen. No focal splenic abnormality. No biliary tree dil atation. Gallbladder is not clearly defined. There are no cholecystectomy clips seen. No hydronephrosis or suspicious renal mass. Isodense masses and pyelonephritis cannot be excluded on non contrast imaging. No adrenal abnormalities. Bladder is fully contracted around a Talley catheter. Left hip prosthesis spray artifact limits pelvic floor assessment. No dilated bowel loops or focal ball bowel wall thickening. No free air, free fluid or inflammatory stranding. No hernia, mass or bulky lymphadenopathy. Atrophic uterus is partially seen. Ovarian abno rmality is not suspected. Disc and bone degenerative changes are present. L1 50% wedge compression is seen probably chronic. Ac hamilton fracture line not seen. Mid and lower lumbar degenerative changes very advanced. . IMPRESSION: ET tube in place T4 level. Advancement of the ET tube 3 cm would be more optimal positio n. NG tube is in good position. No acute pleural or parenchymal finding. The focal densities over the left lung field on the chest fi lm are on the skin surface. Abdominal and pelvic imaging is more limited due to the absence of contrast and the isodensity of the bowel and solid abdominal visceral. An emergent abdominal finding is not suspected.
--- NOTE | 2021-10-05 17:36 | RAD REPORT ---
EXAM DESCRIPTION: CT - CTHCSPWOC - 10/05/2021 5:13 pm CLINICAL HISTORY: Mental status change, unknown cause COMPARISON: No comparisons TECHNIQUE: Axial 5 mm thick images of the head were obtained. Axial 2 mm thick images of the cervic al spine were obtained with sagittal and coronal reconstruction images generated and reviewed. All CT scans are performed using dose optimization technique as appropriate and may include automated exposure control or mA/KV adjustment according to patient size. FINDINGS: No intracranial hemorrhage, mass, edema or acute intracranial finding. No suspicion for ac hamilton infarction. Moderate atrophy and chronic ischemic changes are present. Ventricles are in proporti on to volume loss. Motion artifact is seen along the inner table of skull. Mastoid air cells and para nasal sinuses are clear. No globe or orbit abnormality seen. NG tube and endotracheal tube are in place. Positioning is detailed on separate CT chest abdomen and pelvis report. Cervical bodies are normal in height. No fracture or acute cervical vertebral body finding. Dense elmer cification and thickening of the transverse ligament posterior to the dens noted. C3-4 disc space sarwat rowing is present with endplate spurring extending into the exit foramina as bony foraminal stenosis. C5-6 disc space narrowing is present with endplate spurring that also causes foraminal bony stenosis . No pathologic bone changes. Central canal detail is inherently limited. No paraspinal mass or hematoma. IMPRESSION: Negative CT head examination for acute or significant finding. Atrophy and chronic ische walter changes are present. Cervical spine degenerative change present as detailed. No acute findings seen.
--- NOTE | 2021-10-05 17:42 | ER ---
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 Coronavirus bp screen: At this time, the client does not indicate any symptoms associated with coronavirus-19. Ebola Screen: No symptoms or risks identified at this time. Initial Sepsis Screen: Does the patient meet any 2 criteria? Temp <36.0*C (96.8*F)) or > 38.3*C (100.9*F). HR > 90 bpm. Yes Does the patient have a suspected source of infection? No. Patient's initial sepsis screen is negative. Risk Assessment: Do you want to hurt yourself or someone else? Patient reports no desire to harm self or others. Onset of symptoms is unknown. Care prior to arrival: Oral intubation, Cervical collar in place. Placed on backboard. IV initiated. 18 GA, in the left antecubital area, Oxygen administered. via AMBU bag. 15:48 Method Of Arrival: EMS: [facility] bp 15:48 Acuity: MARIELY 1 bp Triage Assessment: 15:50 General: Appears distressed, unkempt, Behavior is unresponsive. Pain: Unable to use bp pain scale. Patient is unresponsive. EENT: No deficits noted. Neuro: Level of Consciousness is unresponsive, Oriented to none. Cardiovascular: Rhythm is sinus tachycardia. Respiratory: Airway via oral airway. GI: No deficits noted. : No deficits noted. Derm: SKIN TEAR TO FOREARM. Musculoskeletal: No deficits noted. Historical: - Allergies: 15:50 No Known Allergies; bp - Home Meds: 15:50 Humalog Sliding Scale [Active]; Lantus [Active]; bp - PMHx: 15:50 Diabetes - IDDM; Hypertension; bp - Immunization history:: Adult Immunizations unknown. - Social history:: Smoking status: unknown. - Unable to obtain history due to: altered mental status, unresponsive. patient is on ventilator. Screenin:50 Abuse screen: Denies threats or abuse. Denies injuries from another. Nutritional bp screening: No deficits noted. Tuberculosis screening: No symptoms or risk factors identified. Fall Risk None identified. Assessment: 15:50 General: SEE TRIAGE NOTE. bp 16:00 General: Appears distressed, Behavior is unresponsive. Neuro: Gutiérrez jd3 Agitation-Sedation Scale (RASS): -5 Unarousable Level of Consciousness is unresponsive. Cardiovascular: Rhythm is irregular. Respiratory: Airway via oral intubation Breath sounds are clear. 16:30 Reassessment:. Neuro: Level of Consciousness is unresponsive. Cardiovascular: Rhythm is jd3 irregular. Respiratory: Airway via oral intubation. 17:00 Pain: Unable to use pain scale. Patient is intubated. Neuro: Level of Consciousness is jd3 responsive to pain. Cardiovascular: Heart tones present Rhythm is sinus rhythm. Respiratory: Airway via oral intubation Breath sounds are clear bilaterally. GI: NGT in place, to suction. Derm: Skin is intact, Skin is dry, Skin is pale, Skin temperature is cool. 17:30 Reassessment: No changes from previously documented assessment. Patient and/or family jd3 updated on plan of care and expected duration. Pain level reassessed. 17:54 Reassessment: No changes from previously documented assessment. Patient and/or family jd3 updated on plan of care and expected duration. Pain level reassessed. C-collar removed. Abimael CIVIL CADD TECHNICIAN at bedsdide. General: Appears comfortable. Respiratory: Airway via oral intubation. 18:10 Reassessment: No changes from previously documented assessment. Patient and/or family jd3 updated on plan of care and expected duration. Pain level reassessed. Levophed and Dopamine discontinued, pt maintaining own blood pressure. 18:36 Reassessment: charting continued in [facility]. jd3 Vital Signs: 15:48 BP 86 / 37; Pulse 120; Resp 10; Temp 87.3; Pulse Ox 100% on 50% BVM; Weight 72.57 kg; bp 15:59 BP 88 / 57; Pulse 62; Resp 20; Temp 98; Pulse Ox 100% ; bp 16:15 BP 74 / 40; Pulse 130; Resp 18; Pulse Ox 100% on ETT vent; jd3 16:30 BP 147 / 46; Pulse 88; Resp 18; Pulse Ox 100% on ETT vent; jd3 16:45 BP 154 / 70; Pulse 88; Resp 18; Pulse Ox 100% on ETT vent; jd3 17:00 BP 172 / 59; Pulse 89; Resp 18; Pulse Ox 100% on ETT vent; jd3 17:15 BP 163 / 95; Pulse 88; Resp 18; Pulse Ox 100% on ETT vent; jd3 17:30 BP 182 / 85; Pulse 82; Resp 18; Temp 88.4(C); Pulse Ox 100% on 65% FiO2 ETT vent; jd3 17:55 BP 169 / 83; Pulse 81; Resp 18 S; Temp 88.9(C); Pulse Ox 100% on ETT vent; jd3 18:00 BP 149 / 72; Pulse 81; Resp 18; Pulse Ox 100% on ETT vent; jd3 18:15 BP 159 / 78; Pulse 86; Resp 18; Temp 90.4(C); Pulse Ox 100% on ETT vent; jd3 18:16 BP 149 / 72; jd3 18:33 BP 161 / 73; Pulse 85; Resp 18; Temp 91.0(C); Pulse Ox 100% on ETT vent; jd3 18:00 pt off of BP pressures at this time jd3 ED Course: 15:41 Patient arrived in ED. rn 15:41 Neftaly Langley MD is Attending Physician. rn 15:47 Faisal Ocasio, ATIF is Primary Nurse. bp 15:50 Triage completed. bp 15:50 Arm band placed on. bp 15:50 Patient has correct armband on for positive identification. Bed in low position. Call bp light in reach. Side rails up X2. Client placed on continuous cardiac and pulse oximetry monitoring. NIBP monitoring applied. 15:50 Maintain EMS IV. Dressing intact. Good blood return noted. Site clean \T\ dry. Gauge \T\ bp site: 18 G LEFT AC. 16:00 Assisted provider with central line placement. Set up central line tray. Triple lumen ss line placed in right femoral. Line placed by Neftaly Langley MD Placement verified by blood return, Dressed with Tegaderm, Blood was collected. Patient tolerated well. Before procedure, did Practitioner(s) obtain informed consent? No. Was the site allowed to dry? Yes. During the procedure, did the Practitioner(s) maintain a sterile field? Yes. Were unused ports clamped during insertion? Yes. Was blood aspirated from each lumen? Yes. 16:10 Talley cath inserted, using sterile technique, 16 Fr., by me, balloon inflated, to ss gravity drainage. 16:15 Thermoregulation: warm blanket given to patient. Ean blanket applied. jd3 16:41 Chest Single View XRAY In Process Unspecified. EDMS 16:55 pts cousin Ching Urena.......[phone]. bd 17:15 Chest Abd Pelvis Wo Con In Process Unspecified. EDMS 17:15 Head C Spine Mpr Wo Con In Process Unspecified. EDMS 17:38 Kelsey Peterson MD is Hospitalizing Provider. rn 18:36 Patient admitted, IV remains in place. jd3 Administered Medications: 15:50 Drug: Norepinephrine 5 mcg/min Route: IV; Rate: calculated rate; Site: right femoral; jd3 18:16 Follow up: BP 149 / 72; Response: Blood pressure is elevated; IV Status: Order to jd3 discontinue infusion 16:20 Drug: DOPamine 5 mcg/min Route: IV; Rate: calculated rate; Site: right femoral; jd3 16:30 Follow up: Response: Blood pressure is elevated; IV Status: Order to discontinue jd3 infusion 16:25 Drug: Sodium Bicarbonate 1 amp Route: IVP; Site: right femoral; jd3 17:30 Follow up: Response: No adverse reaction jd3 16:28 Drug: Insulin Regular Human 10 units {Co-Signature: bp (Faisal Ocasio RN).} Route: IVP; jd3 Site: right femoral; 18:31 Follow up: Response: No adverse reaction jd3 16:29 Drug: Insulin Regular Human 10 units {Co-Signature: bp (Faisal Ocasio RN).} Route: jd3 Sub-Q; Site: abdomen; 18:31 Follow up: Response: No adverse reaction jd3 16:30 Drug: NS 0.9% (30 ml/kg) 30 ml/kg Route: IV; Rate: bolus; Site: left antecubital; jd3 18:31 Follow up: Response: No adverse reaction; IV Status: Completed infusion; IV Intake: jd3 2000ml 16:30 Drug: Sodium Bicarbonate 1 amp Route: IVP; Site: right femoral; jd3 18:32 Follow up: Response: No adverse reaction jd3 16:43 Drug: Calcium Gluconate 2 grams Route: IVPB; Infused Over: 60 mins; Site: right femoral;jd3 18:31 Follow up: Response: No adverse reaction; IV Status: Completed infusion jd3 17:00 Drug: Insulin Drip - (Insulin Regular Human 100 units, NS 0.9% 100 ml) {Co-Signature: jpetros ss (Poonam Rendon RN).} Route: IV; Rate: calculated rate; Site: left antecubital; 18:32 Follow up: Response: No adverse reaction; IV Status: Infusion continued upon admission jd3 17:00 Drug: D5W 1000 ml, Sodium Bicarbonate 150 mEq Route: IV; Rate: 150 ml/hr; Site: right jd3 femoral; 18:32 Follow up: Response: No adverse reaction; IV Status: Infusion continued upon admission jd3 17:26 Drug: Midazolam 2 mg {Note: for agitation in CT.} Route: IVP; Site: right femoral; jd3 18:31 Follow up: Response: No adverse reaction jd3 17:46 Drug: Zosyn (piperacillin-tazobactam) 3.375 grams Route: IVPB; Infused Over: 60 mins; jd3 Site: right femoral; 18:36 Follow up: Response: No adverse reaction; IV Status: Completed infusion jd3 Medication: 15:50 VIS not applicable for this client. bp Intake: 18:31 IV: 2000ml; Total: 2000ml. jd3 Ventilator: 17:55 Fi02: 65%; Rate: 18min; Peep: 5cm; Mode: SIMV; ET tube: 7 fr (Oral); jd3 18:33 Fi02: 65%; Rate: 18min; Peep: 5cm; Mode: SIMV; ET tube: 7 fr (Oral); jd3 17:55 21 \T\ teeth. pressure control \T\ 10. pressure support \T\ 15. jd3 18:33 ET tube advanced to 23 \T\ teeth jd3 Outcome: 17:41 Decision to Hospitalize by Provider. rn 18:36 Admitted to ER Hold. Please see [facility] for further documentation. jd3 18:36 Condition: stable 18:36 Instructed on the need for admit. 20:19 Patient left the ED. lp1 Signatures: Dispatcher [employer] EDHalley Ca Roman, MD MD rn Smirch, Poonam, RN RN ss Jesika Carpenter RN RN lp1 Gunner Vidal RN RN jd3 Faisal Ocasio RN RN bp Faisal Ocasio RN bp Poonam Rendon RN ss Corrections: (The following items were deleted from the chart) 15:58 15:48 BP 86 / 37; Pulse 120bpm; Resp 10bpm; Pulse Ox 100% 02 50% BVM; Temp 87.3F; bp bp 17:42 17:30 BP 182 / 85; Pulse 82bpm; Resp 18bpm; Pulse Ox 100% FiO2 65% vent; jd3 jd3
--- NOTE | 2021-10-05 17:42 | EDPHYS ---
Physician Documentation [facility] Name: Ester Sanchez Age: 86 yrs Sex: Female : 1935 Arrival Date: 10/05/2021 Time: 15:41 Bed 3 Private MD: ED Physician Neftaly Langley HPI: 10/05 16:07 This 86 yrs old Female presents to ER via EMS with complaints of Unresponsive. rn 16:07 The patient presents with decreased responsiveness. Onset: The symptoms/episode rn began/occurred at an unknown time. Possible causes: unknown. Current symptoms: In the emergency department the patient's symptoms are unchanged from the initial presentation. It is unknown whether or not the patient has had similar symptoms in the past. It is unknown whether or not the patient has recently seen a physician. EMS reports found down, unknown length of time she had been down, neighbor noticed uncollected newspapers and checked on her, moaning but no purposeful response, intubated in field by EMS and started on levophed for hypotension. Core temp in 80s. Glucose read "high". Historical: - Allergies: 15:50 No Known Allergies; bp - Home Meds: 15:50 Humalog Sliding Scale [Active]; Lantus [Active]; bp - PMHx: 15:50 Diabetes - IDDM; Hypertension; bp - Immunization history:: Adult Immunizations unknown. - Social history:: Smoking status: unknown. - Unable to obtain history due to: altered mental status, unresponsive. patient is on ventilator. ROS: 16:07 Unable to obtain ROS due to patient is on ventilator. rn Exam: 16:07 Constitutional: Thin female, no acute distress, intubated Head/Face: Normocephalic, rn atraumatic. Eyes: Pupils 3mm, minimally reactive but equal ENT: dry MM Cardiovascular: tachycardic, irregular, no palpable radial pulses, weak femoral pulses Respiratory: No increased work of breathing, no retractions or nasal flaring. Abdomen/GI: soft, non-distended. Skin: Cold extremities, mottled MS/ Extremity: No cyanosis Neuro: Unresponsive, occasional RLE twitches, no purposeful movement (also just intubated with ketamine and succinylcholine) Vital Signs: 15:48 BP 86 / 37; Pulse 120; Resp 10; Temp 87.3; Pulse Ox 100% on 50% BVM; Weight 72.57 kg; bp 15:59 BP 88 / 57; Pulse 62; Resp 20; Temp 98; Pulse Ox 100% ; bp 16:15 BP 74 / 40; Pulse 130; Resp 18; Pulse Ox 100% on ETT vent; jd3 16:30 BP 147 / 46; Pulse 88; Resp 18; Pulse Ox 100% on ETT vent; jd3 16:45 BP 154 / 70; Pulse 88; Resp 18; Pulse Ox 100% on ETT vent; jd3 17:00 BP 172 / 59; Pulse 89; Resp 18; Pulse Ox 100% on ETT vent; jd3 17:15 BP 163 / 95; Pulse 88; Resp 18; Pulse Ox 100% on ETT vent; jd3 17:30 BP 182 / 85; Pulse 82; Resp 18; Temp 88.4(C); Pulse Ox 100% on 65% FiO2 ETT vent; jd3 17:55 BP 169 / 83; Pulse 81; Resp 18 S; Temp 88.9(C); Pulse Ox 100% on ETT vent; jd3 18:00 BP 149 / 72; Pulse 81; Resp 18; Pulse Ox 100% on ETT vent; jd3 18:15 BP 159 / 78; Pulse 86; Resp 18; Temp 90.4(C); Pulse Ox 100% on ETT vent; jd3 18:16 BP 149 / 72; jd3 18:33 BP 161 / 73; Pulse 85; Resp 18; Temp 91.0(C); Pulse Ox 100% on ETT vent; jd3 18:00 pt off of BP pressures at this time jd3 Ventilator: 17:55 Fi02: 65%; Rate: 18min; Peep: 5cm; Mode: SIMV; ET tube: 7 fr (Oral); jd3 18:33 Fi02: 65%; Rate: 18min; Peep: 5cm; Mode: SIMV; ET tube: 7 fr (Oral); jd3 17:55 21 \\T\\ teeth. pressure control \\T\\ 10. pressure support \\T\\ 15. jd3 18:33 ET tube advanced to 23 \\T\\ teeth jd3 Procedures: 16:04 Central Line: the site was prepped with in sterile fashion, a triple lumen catheter was rn inserted, in the right femoral vein, in 1 attempts. placement was verified, by blood return, the site was dressed with Tegaderm, using sterile technique, the patient tolerated the procedure, well. MDM: 15:41 Patient medically screened. rn 16:03 ED course: Pt completed 30ml/kg bolus that was started by EMS, MAP 66, HR 128. central rn line placed. . 17:10 Differential Diagnosis: CVA, electrolyte abnormality, hypoglycemia, intracranial bleed, rn pneumonia, sepsis, TIA, UTI, volume depletion, DKA. Data reviewed: vital signs, nurses notes, lab test result(s), radiologic studies, and as a result, I will. ED course: Updated daughter Ale Foster, lives in [place], number [phone]. Daughter states DNR, so if heart stops, DNR, but is fine with care given up until now and ok with escalation if needed but no CPR or ACLS. 17:37 Counseling: I had a detailed discussion with the patient and/or guardian regarding: the rn historical points, exam findings, and any diagnostic results supporting the discharge/admit diagnosis, lab results, radiology results, the need for further work-up and treatment in the hospital. Response to treatment: the patient's symptoms have mildly improved after treatment, and as a result, I will admit patient. Admission orders: after a detailed discussion of the patient's condition and case, the admit orders are written by me. ED course: CT head/cspine/chest/abdomen without acute findings. Pt improving, able to wean completely off dopamine, and now down to 20 levophed (came in on levophed 40). Will admit to hospitalist for further care.. 10/05 15:43 Order name: Blood Culture Adult (2) rn 10/05 15:43 Order name: CBC with Diff rn 10/05 15:43 Order name: CMP; Complete Time: 16:36 rn 10/05 15:43 Order name: Lactate; Complete Time: 16:36 rn 10/05 15:43 Order name: Protime (+inr); Complete Time: 16:56 rn 10/05 15:43 Order name: Ptt, Activated; Complete Time: 16:56 rn 10/05 15:43 Order name: Urine Culture rn 10/05 15:43 Order name: Urine Microscopic Only rn 10/05 15:43 Order name: SARS-COV-2 RT PCR (Document "Date of Onset" if Symptomatic); Complete Time: rn 18:42 10/05 15:43 Order name: Flu rn 10/05 15:43 Order name: Troponin High Sensitivity; Complete Time: 16:36 rn 10/05 15:43 Order name: BNP; Complete Time: 16:36 10/05 16:05 Order name: ABG; Complete Time: 16:36 rn 10/05 16:06 Order name: Glucose, Ancillary Testing; Complete Time: 16:17 EDIN 10/05 15:43 Order name: Chest Single View XRAY; Complete Time: 17:36 10/05 16:46 Order name: Chest Abd Pelvis Wo Con; Complete Time: 17:36 EDIN 10/05 17:10 Order name: Head C Spine Mpr Wo Con; Complete Time: 17:36 EDIN 10/05 18:03 Order name: Glucose; Complete Time: 18:42 [facility] 10/05 18:15 Order name: Glucose, Ancillary Testing; Complete Time: 18:42 EDIN 10/05 19:07 Order name: Glucose [facility] 10/05 19:19 Order name: Glucose, Ancillary Testing [facility] 10/05 19:38 Order name: Lactate Sepsis 2 HR Follow-up; Complete Time: 20:04 EDIN 10/05 19:39 Order name: US; Complete Time: 20:04 [facility] 10/05 20:16 Order name: Glucose Level [facility] 10/05 15:43 Order name: Accucheck; Complete Time: 16:08 10/05 15:43 Order name: Cardiac monitoring; Complete Time: 16:08 10/05 15:43 Order name: EKG - Nurse/Tech; Complete Time: 16:07 10/05 15:43 Order name: IV Saline Lock - Large Bore; Complete Time: 16:05 10/05 15:43 Order name: Labs collected and sent; Complete Time: 16:05 10/05 15:43 Order name: O2 Per Protocol; Complete Time: 16:05 10/05 15:43 Order name: O2 Sat Monitoring; Complete Time: 16:04 rn 10/05 15:43 Order name: Urine Dipstick-Ancillary (obtain specimen); Complete Time: 16:04 10/05 15:43 Order name: Ean Saucedo; Complete Time: 17:47 rn 10/05 17:55 Order name: [facility]. Order: repeat BMP at 1999; Complete Time: 20:19 jb4 Administered Medications: 15:50 Drug: Norepinephrine 5 mcg/min Route: IV; Rate: calculated rate; Site: right femoral; jd3 18:16 Follow up: BP 149 / 72; Response: Blood pressure is elevated; IV Status: Order to jd3 discontinue infusion 16:20 Drug: DOPamine 5 mcg/min Route: IV; Rate: calculated rate; Site: right femoral; jd3 16:30 Follow up: Response: Blood pressure is elevated; IV Status: Order to discontinue jd3 infusion 16:25 Drug: Sodium Bicarbonate 1 amp Route: IVP; Site: right femoral; jd3 17:30 Follow up: Response: No adverse reaction jd3 16:28 Drug: Insulin Regular Human 10 units {Co-Signature: bp (Faisal Ocasio RN).} Route: IVP; jd3 Site: right femoral; 18:31 Follow up: Response: No adverse reaction jd3 16:29 Drug: Insulin Regular Human 10 units {Co-Signature: bp (Faisal Ocasio RN).} Route: jd3 Sub-Q; Site: abdomen; 18:31 Follow up: Response: No adverse reaction jd3 16:30 Drug: NS 0.9% (30 ml/kg) 30 ml/kg Route: IV; Rate: bolus; Site: left antecubital; jd3 18:31 Follow up: Response: No adverse reaction; IV Status: Completed infusion; IV Intake: jd3 2000ml 16:30 Drug: Sodium Bicarbonate 1 amp Route: IVP; Site: right femoral; jd3 18:32 Follow up: Response: No adverse reaction jd3 16:43 Drug: Calcium Gluconate 2 grams Route: IVPB; Infused Over: 60 mins; Site: right femoral;jd3 18:31 Follow up: Response: No adverse reaction; IV Status: Completed infusion jd3 17:00 Drug: Insulin Drip - (Insulin Regular Human 100 units, NS 0.9% 100 ml) {Co-Signature: jd3 ss (Poonam Rendon RN).} Route: IV; Rate: calculated rate; Site: left antecubital; 18:32 Follow up: Response: No adverse reaction; IV Status: Infusion continued upon admission jd3 17:00 Drug: D5W 1000 ml, Sodium Bicarbonate 150 mEq Route: IV; Rate: 150 ml/hr; Site: right jd3 femoral; 18:32 Follow up: Response: No adverse reaction; IV Status: Infusion continued upon admission jd3 17:26 Drug: Midazolam 2 mg {Note: for agitation in CT.} Route: IVP; Site: right femoral; jd3 18:31 Follow up: Response: No adverse reaction jd3 17:46 Drug: Zosyn (piperacillin-tazobactam) 3.375 grams Route: IVPB; Infused Over: 60 mins; jd3 Site: right femoral; 18:36 Follow up: Response: No adverse reaction; IV Status: Completed infusion jd3 Disposition: 17:37 Critical Care:. 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 Total rn time: 40 minutes Signatures: Dispatcher [employer] EDMS Halley Manjarrez Roman, MD MD rn Attema, Lee, HOST AND HOSTESS-C HOST AND HOSTESS-Cla1 Shaquille Barragan RN RN jb4 Gunner Vidal RN RN Faisal Francois RN RN bp Faisal Rendon RN ss Corrections: (The following items were deleted from the chart) 16:08 16:07 EMS reports found down, unknown length of time she had been down, neighbor rn noticed uncollected newspapers and checked on her, moaning but no purposeful response, intubated in field by EMS and started on levophed for hypotension. Core temp in 80s. . rn 16:46 15:50 Angio Aorta For Dissection+CT.RAD.BRZ ordered. EDMS EDMS 17:10 15:48 Head Brain Wo Cont+CT.RAD.BRZ ordered. EDMS EDMS 18:36 17:41 rn bd
[2021-10-05] MEDS ORDERED: NOREPINEPHRINE 8 MG in Dextrose 5%-Water 500 ML IV SCH (18:00)
[2021-10-05] MEDS ORDERED: ONDANSETRON 4 MG/2 ML VIAL IV PRN (18:35)
[2021-10-05] MEDS ORDERED: HALOPERIDOL LACT 5 MG/ML INJ IV PRN (18:35)
[2021-10-05] MEDS ORDERED: D5 0.45 NS 1,000 ML IV SCH (19:00)
[2021-10-05] MEDS ORDERED: NACHLORIDE 0.45% 1,000 ML IV SCH ×2 (19:00→22:00)
--- NOTE | 2021-10-05 19:03 | P.HP ---
Certification for Inpatient Patient admitted to: Inpatient With expected LOS: >2 Midnights Patient will require the following post-hospital care: None Practitioner: I am a practitioner with admitting privileges, knowledge of patient current condition, hospital course, and medical plan of care. Services: Services provided to patient in accordance with Admission requirements found in Title 42 Section 412.3 of the Code of Federal Regulations Patient History Date of Service: 10/05/21 Reason for admission: DKA History of Present Illness: 86-year-old female patient with history of insulin-dependent diabetes, hypertension was found by her neighbor unresponsive in her home, she was last seen by her neighbor on Monday the . Patient does live at home alone. EMS was called and intubated patient in the field she was profoundly hypotensive and started on Levophed as well prior to arrival in the emergency department. Patient was seen and evaluated in the emergency department she was found to be in DKA with severe metabolic acidosis, acute renal failure, hyperkalemia with elevated troponin and BNP as well as lactic acidosis and elevated white blood cell count. Patient was started on insulin drip, bicarb drip given dose of Zosyn had CT scans of head/neck/chest abdomen pelvis which were negative for acute findings, chest x-ray also negative for acute findings. Patient was weaned off of vasopressors during her stay in the emergency department blood pressure has stabilized, ED physician wishes to admit for further evaluation and management of DKA with coma Allergies No Known Allergies Allergy (Unverified 09/24/15 13:38) - Past Medical/Surgical History Diabetic: Yes -: diabetes -: hypertension Past Surgical History: Unable to obtain Psychosocial/ Personal History: Patient lives at home, alone - Family History Father History Unknown: Yes - Social History Smoking Status: Unknown if ever smoked Counseled patient to stop smoking for: less than [address] of Res[address]: Home Review of Systems is unable to be obtained Physical Examination - Physical Exam General: Unresponsive HEENT: Atraumatic, Normocephalic, Mucous membr. moist/pink Neck: JVD not distended, No LAD Respiratory: Clear to auscultation bilaterally, Normal air movement, Other (On ventilator) Cardiovascular: No edema, Normal S1 S2 Capillary refill: <2 Seconds Gastrointestinal: Normal bowel sounds, Soft and benign, No masses Musculoskeletal: No contractures, No erythema, No warmth Integumentary: No tenderness/swelling, No erythema, No warmth Neurological: Other (Unresponsive, on ventilator without sedation at this time) Urinary: Talley catheter - Studies Laboratory Data (last 24 hrs) 10/05/21 15:55: PT 11.4, INR 1.04, APTT 19.3 L 10/05/21 15:55: Sodium 131 L, Potassium 7.7 H*, BUN 70 H, Creatinine 3.29 H, Glucose 1429 H*, Total Bilirubin 0.5, AST 143 H, ALT 45, Alkaline Phosphatase 123 H 10/05/21 15:55: WBC 13.9 H, Hgb 10.4 L, Hct 37.5, Plt Count 283 Assessment and Plan - Plan Assessment: Diabetes mellitus type 2insulin-dependent with DKA/coma Rule out septic shock Lactic acidosis Acute renal failure with hyperkalemia, acidosis NSTEMI Plan: Diabetes mellitus type 2insulin-dependent with DKA/coma: Continue insulin drip, hourly Accu-Cheks, every 4 BMP, IV fluids. A1c in the morning patient currently on ventilator for airway protection as she was unresponsive ventilator protocol in place, continue with as needed medication for sedation. Rule out septic shock: Patient meets criteria for septic shock with leukocytosis, hypotension, tachycardia, altered mental status, patient was on dopamine/Levophed in the emergency department but has been weaned off at this t juan will provide with Levophed as needed. Urinalysis pending no other signs of infection present covered with Zosyn we will continue antibiotics at this time doubt septic shock suspect more related to acidosis/DKA at this time. Lactic acidosis: Likely related to DKA out septic shock will trend lactate level continue fluid resuscitation. Acute renal failure with hyperkalemia, acidosis: Continue treatment for DKA, IV fluids, renal ultrasound has been ordered nephrology has been consulted and contacted. Anticipate shifting hyperkalemia given insulin and other medications received in the ER repeat chemistry pending. CPK level ordered as well. NSTEMI: Suspect main demand related to DKA/shock/hypovolemic shock versus septic shock. Will trend troponin, consult cardiology and obtain echocardiogram. EKG without ST elevation. DVT PPX: Heparin Code status: Full Discharge Plan: Home Plan to discharge in: Greater than 2 days - Advance Directives Does patient have a Living Will: No Does patient have a Durable POA for Healthcare: No - Code Status/Comfort Care Code Status Assessed: Yes (DNR) Critical Care: No Time Spent Managing Pts Care (In Minutes): 70
--- NOTE | 2021-10-05 19:38 | RAD REPORT ---
EXAM DESCRIPTION: US - Renal Ultrasound-Complete - 10/05/2021 7:30 pm CLINICAL HISTORY: ARF COMPARISON: No comparisons FINDINGS: The right kidney measures 7.5 x 3.2 x 3.1 cm. The left kidney measures 8.7 x 4.3 x 3.1 cm . Renal cortical thickness and echogenicity are normal. No hydronephrosis or suspicious renal mass. Urinary bladder is contracted around a Talley catheter. IMPRESSION: No hydronephrosis or suspicious renal mass. No other significant findings.
[2021-10-05] MEDS: INSULIN -REGULAR HUMAN 100 UNIT in NA CHLORIDE 0.9% 100 ML IV SCH (20:01)
[2021-10-05 20:32] LABS: Potassium 4.8 mmol/L (3.5-5.1)
[2021-10-05 20:55] LABS: Blood Morphology Comment NOT SEEN (NOT SEEN); Platelet Estimate ADEQ; White Blood Cell Scan OK (OK)
[2021-10-05] MEDS ORDERED: HEPARIN 5000 UNIT/ML 1 ML VIAL SQ SCH (21:00)
[2021-10-05] MEDS: FAMOTIDINE 20 MG/2 ML VIAL IV SCH (21:06)
--- NOTE | 2021-10-05 21:53 | RAD REPORT ---
EXAM DESCRIPTION: RAD - Chest Single View - 10/05/2021 9:20 pm CLINICAL HISTORY: ET placement COMPARISON: Portable October 05 TECHNIQUE: AP portable chest image was obtained 10/05/2021 9:20 pm supine position. FINDINGS: Patient is significantly rotated for the examination. Endotracheal tube has been advanced. Tip is at the top of the aortic arch. This is approximately 4.5 cm from the gerry. This is adequate positioning. NG tube extends below the diaphragm, off the field of view. No new or progressive lung parenchymal fi nding. Heart size is normal. IMPRESSION: Endotracheal tube has been advanced. Tip is at the aortic arch level which is good posit ioning.
[2021-10-06] MEDS: FENTANYL CITR 100 MCG/2 ML IV PRN (00:01)
[2021-10-06] MEDS: INSULIN -REGULAR HUMAN 100 UNIT in NA CHLORIDE 0.9% 100 ML IV SCH ×3 (00:14→18:22)
[2021-10-06] MEDS: LORazepam 2 MG/ML VIAL IV PRN ×2 (00:15→10:30)
[2021-10-06 01:19] LABS: BUN Blood Urea Nitrogen 74 mg/dL (7-18); Glomerular Filtration Rate 13 ml/min (=/>90); Sodium Level 140 mmol/L (136-145)
[2021-10-06 01:20] LABS: Potassium 4.1 mmol/L (3.5-5.1)
[2021-10-06 01:21] LABS: Bicarbonate 12 mmol/L (21-32); Creatine Phosphokinase > 14000 U/L (26-192); Glucose Level 960 mg/dL (74-106)
[2021-10-06] MEDS ORDERED: NA CHLORIDE 0.9% 1,000 ML IV ONE ×2 (01:55→10:49)
[2021-10-06] MEDS ORDERED: NA CHLORIDE 0.9% 1,000 ML ONE (02:00)
[2021-10-06] MEDS: NACHLORIDE 0.45% 1,000 ML IV SCH ×2 (02:00→06:10)
[2021-10-06 04:56] LABS: Potassium 3.7 mmol/L (3.5-5.1)
[2021-10-06 05:28] LABS: Absolute Lymphocytes (CBC) 0.3 K/uL (0.7-4.9); Hematocrit 31.9 % (36.0-45.0); Lymphocytes % 2.8 % (15.3-44.8); MPV 8.9 fL (7.6-11.3); RBC Red Blood Cell Count 3.58 M/uL (3.86-4.86)
[2021-10-06 06:00] LABS: Magnesium 2.2 mg/dL (1.8-2.4); Phosphorus 3.1 mg/dL (2.5-4.9)
[2021-10-06] MEDS ORDERED: KCL 20 MEQ/100 mL IVPB 20 MEQ/100 ML BAG IV SCH (06:00)
[2021-10-06 06:02] LABS: Troponin High Sensitivity 25442.2 pg/mL (<58.9)
[2021-10-06 06:11] LABS: Arterial Blood Carboxyhemoglob 0.9 % (0-1.5); Blood Gas Oxyhemoglobin 97.2 % (94-97); Blood O2 Saturation 99.3 % (92-98.5)
--- NOTE | 2021-10-06 07:46 | RAD REPORT ---
EXAM DESCRIPTION: RAD - Chest Single View - 10/06/2021 5:58 am CLINICAL HISTORY: vented COMPARISON: Chest Single View dated 10/05/2021; Chest Single View dated 10/05/2021; Chest Single View dated 04/08/2021; Chest Abd Pelvis Wo Con dated 10/05/2021 FINDINGS: Lines: Endotracheal tube just above the aortic arch by approximately 1 cm . This is within normal limits. Enteric tube below the diaphragm. Lungs: No evidence of edema or pneumonia. The lungs are hyperinflated. Pleural: No significant pleural effusions or pneumothorax. Cardiac: The heart size is within normal limits. Bones: No acute fractures. Other: IMPRESSION: Hyperinflated lungs but no acute process otherwise identified. Endotracheal tube in sati sfactory position.
[2021-10-06 08:49] LABS: Potassium 4.3 mmol/L (3.5-5.1)
--- NOTE | 2021-10-06 09:21 | P.PN ---
Subjective Date of Service: 10/06/21 Chief Complaint: DKA Subjective: No new changes (Intubated, still on vent Less responsive this a.m., not on sedation low urine output overnight) Physical Examination - Vital Signs Temperature: 98.1 F Blood Pressure: 110/40 Pulse: 112 Respirations: 30 Pulse Ox (%): 100 - Studies Laboratory Data (last 24 hrs) 10/05/21 15:55: PT 11.4, INR 1.04, APTT 19.3 L 10/05/21 15:55: Sodium 131 L, Potassium 7.7 H*, BUN 70 H, Creatinine 3.29 H, Glucose 1429 H*, Total Bilirubin 0.5, AST 143 H, ALT 45, Alkaline Phosphatase 123 H 10/05/21 15:55: WBC 13.9 H, Hgb 10.4 L, Hct 37.5, Plt Count 283 Assessment And Plan - Code Status/Comfort Care Code Status Assessed: Yes Physician Review: Patient Assessed, Agree with Above Assessment and Plan Physician Review Additional Text: - Physical Exam General: Unresponsive, on vent, FiO2 25% HEENT: Atraumatic, Normocephalic, Mucous membr. moist/pink Neck: JVD not distended, No LAD Respiratory: Clear to auscultation bilaterally, Normal air movement, Other (On ventilator) Cardiovascular: No edema, Normal S1 S2 Capillary refill: <2 Seconds Gastrointestinal: Normal bowel sounds, Soft and benign, No masses Musculoskeletal: No contractures, No erythema, No warmth Integumentary: No tenderness/swelling, No erythema, No warmth Neurological: Other (Unresponsive, on ventilator without sedation at this time) Urinary: Talley catheter - Studies Laboratory Data (last 24 hrs) 10/05/21 15:55: PT 11.4, INR 1.04, APTT 19.3 L 10/05/21 15:55: Sodium 131 L, Potassium 7.7 H*, BUN 70 H, Creatinine 3.29 H, Glucose 1429 H*, Total Bilirubin 0.5, AST 143 H, ALT 45, Alkaline Phosphatase 123 H 10/05/21 15:55: WBC 13.9 H, Hgb 10.4 L, Hct 37.5, Plt Count 283 Assessment and Plan DKA/coma Lactic acidosis Acute renal failure with hyperkalemia, acidosis NSTEMI Acute respiratory failure Plan: Diabetes mellitus type 2insulin-dependent with DKA/coma: Continue insulin drip, still elevated anion gap, continue BMP every 4 Continue gentle IV fluid normal saline Non-ST elevation MImarked elevation and rising troponin Follow cardiology May need cardiac cath Start Lovenox SQ every 12 Start aspirin/Plavix per rectal Acute kidney injurylikely due to ATN post unresponsiveness/hypotension With oliguria May also be due to acute rhabdomyolysis Follow nephrology May need to start of renal replacement therapy Metabolic encephalopathymay be due to anoxic brain injury Plan for MRI when able Neurology consult Acute respiratory failuretrending down vent settings If more awake we will plan for extubation protocol DVT PPX: Heparin Code status: Full Discharge Plan: Home Plan to discharge in: Greater than 2 days - Advance Directives Does patient have a Living Will: No Does patient have a Durable POA for Healthcare: No
[2021-10-06] MEDS: PIPER TAZO 3.375 GM in NA CHLORIDE 0.9% 100 ML IV SCH ×3 (10:28)
[2021-10-06] MEDS: ASPIRIN 325 MG TAB FT SCH (10:28)
[2021-10-06] MEDS: ENOXAPARIN 60 MG/0.6 ML SQ SCH (10:28)
--- NOTE | 2021-10-06 12:32 | EKG ---
Test Date: 2021-10-06 Test Time: 10:21:25 National Coverage Specialist: ALONSO MEASUREMENT RESULTS: Intervals: Rate: 140 AL: 128 QRSD: 82 QT: 304 QTc: 464 [place]: P: 109 AL: 128 QRS: -79 T: 39 INTERPRETIVE STATEMENTS: Sinus tachycardia Left axis deviation Anterior infarct, age undetermined Abnormal ECG Compared to ECG 10/05/2021 15:57:43 Ventricular premature complex(es) no longer present Wide-QRS tachycardia no longer present Myocardial infarct finding still present Electronically Signed On 10-06-21 12:31:26 CDT by Christopher Gomez
--- NOTE | 2021-10-06 12:33 | EKG ---
Test Date: 2021-10-05 Test Time: 15:57:43 Menswear Salesperson: ROMEL MEASUREMENT RESULTS: Intervals: Rate: 125 VT: QRSD: 172 QT: 288 QTc: 415 [place]: P: VT: QRS: -84 T: 165 INTERPRETIVE STATEMENTS: Wide QRS tachycardia with frequent premature ventricular complexes in a pattern of bigeminy Left axis deviation Nonspecific intraventricular block Inferior infarct, age undetermined Anterolateral infarct, age undetermined Abnormal ECG No previous ECG available for comparison Electronically Signed On 10-06-21 12:31:37 CDT by Christopher Gomez
[2021-10-06 12:51] LABS: Potassium 4.4 mmol/L (3.5-5.1)
--- NOTE | 2021-10-06 13:10 | ECHO ---
HEIGHT: 5 ft 6 in WEIGHT: 128 lb 14.4 oz DATE OF STUDY: 10/06/[address]: Abimael Martinez NP 2-DIMENSIONAL: YES M.MODE: YES DOPPLER: YES COLOR FLOW: YES TDS: PORTABLE: YES DEFINITY: BUBBLE STUDY: DIAGNOSIS: NON ST ELEVATION MYOCARDIAL INFARCTION CARDIAC HISTORY: CATHERIZATION: SURGERY: PROSTHETIC VALVE: PACEMAKER: MEASUREMENTS (cm) DIASTOLIC (NORMALS) SYSTOLIC (NORMALS) IVSd 1.0 (0.6-1.2) LA Diam 3.9 (1.9-4.0) LVEF 35% LVIDd 3.6 (3.5-5.7) LVIDs 3.0 (2.0-3.5) %FS 16% LVPWd 1.1 (0.6-1.2) Ao Diam 3.0 (2.0-3.7) 2 DIMENSIONAL ASSESSMENT: RIGHT ATRIUM: NORMAL LEFT ATRIUM: NORMAL RIGHT VENTRICLE: NORMAL LEFT VENTRICLE: NORMAL TRICUSPID VALVE: NORMAL MITRAL VALVE: MITRAL ANNULAR CALCIFICATION PULMONIC VALVE: NORMAL AORTIC VALVE: SCLEROSIS PERICARDIAL EFFUSION: NONE AORTIC ROOT: NORMAL LEFT VENTRICULAR WALL MOTION: SEVERE GLOBAL HYPOKINESIS DOPPLER/COLOR FLOW: MILD MITRAL REGURGITATION, TRICUSPID REGURGITATION. COMMENTS: SEVERE GLOBAL HYPOKINESIS. MILD MITRAL REGURGITATION, TRICUSPID REGURGITATION. EJECTION FRACTION 35%. MITRAL ANNULAR CALCIFICATION. AORTIC SCLEROSIS. TECHNOLOGIST: JUAN MEJIA
[2021-10-06] MEDS ORDERED: D50W 25 GM/50 ML SYRINGE IV PRN (13:38)
[2021-10-06] MEDS ORDERED: D5 0.45 NS 1,000 ML IV SCH (14:00)
[2021-10-06] MEDS ORDERED: VANCOMYCIN 1.25 GM in NA CHLORIDE 0.9% 250 ML IVPB ONE (14:00)
--- NOTE | 2021-10-06 15:12 | CON ---
Date of Consultation: 10/06/2021 Reason For Consultation: Elevated BUN and creatinine, acidosis, fluid management. History Of Present Illness: All the information has been obtained from the record and from the jaden ruiz as the patient nonverbal, intubated. This is a pleasant 86-year-old female with significant past medical history of diabetes, hypertension, CAD, apparently the patient was found by neighbors at home after she was missed last time she was seen back Monday. EMS was cold, found hypotensive. The john ent started on resuscitation, fluid and Levophed with dopamine. The patient upon arrival to the hosp ital found to have elevation in BUN and creatinine, DKA with glucose above 1000, started on protocol and with non-ST elevation [place], questionable of septic shock, the patient started on fluid resuscitatio n. Weaned from the pressor over the night. The patient was started on DKA protocol. Today, the pat ient is still on vent. Acidosis has been resolved. Blood pressure maintained acceptable of pressor. Past Medical History: Includes; 1.Diabetes. 2.CAD. 3.Hypertension. Allergies: NO KNOWN DRUGS ALLERGY. Past Surgical History: None obtainable. Family History: Positive for hypertension. Social History: None obtainable. Review of Systems: None obtainable. Physical Examination: Vital Signs: When I saw the patient; blood pressure 110/40, pulse of 112, afebrile. The patient had good urine output yesterday up to 1999, but over the night, has decrease in her urine output down ov er the last 12 hours to 300. Chest: Clear to auscultation. Heart: S1, S2. Regular. Abdomen: Soft, nontender. Extremity: No edema. Neuro: The patient on vent, sedated. Laboratory Data: Upon admission; sodium 140, potassium 4.1, bicarb 12, chloride 105, BUN 74, creatin ine 3.3, GFR of 13, blood sugar 1098. CK more than 14,000. WBC 13.9, H and H 10.4/37.4, platelets 2 84. INR 1. ABG; pH 6.9, CO2 17, O2 681, base access -25. Saturation 99.2. Urinalysis was not done . Ketone was not done. Chest x-ray, no infiltration. Reviewing the record for the patient back in March 2021, creatinine 0.9 with GFR of 59. Latest lab data for the patient; sodium 145, potassium 4.3, bicarb 16, chloride 113, BUN 73, creatinine 3.4, glucose 311, GFR of 12, calcium 7.6. Lactic a vipul 9.1. ABG; pH 7.39, CO2 24, O2 224, base access -9. Current Medications: The patient on include aspirin, Zosyn, Plavix, Lovenox, lorazepam, Pepcid. Ins ulin. Renal ultrasound; 7.5/8.5, no hydronephrosis, echogenic. Assessment And Plan: 1.Acute kidney injury secondary to prerenal secondary to poor perfusion, ATN secondary to shock seco ndary to cardiac shock/septic shock/toxic ATN secondary to septic shock, complicated with severe acid osis, still looked to me on the superimposed with prerenal secondary to severe glucose diuresis super imposed with rhabdomyolysis. Looked to me the patient is still on prerenal. I am going to bolus the patient with another L of normal saline and we will monitor the patient. I agree with half-normal d oing. We will continue to monitor the patient closely. 2.Hypernatremia. Start the patient on half normal. We will continue to monitor the patient. 3.Septic shock. I am going to send for urinalysis. Currently, the patient is on antibiotic. We wi ll follow up with primary dose, we will adjust it to 2.25 given the current kidney function. 4.Acidosis, high anion gap metabolic acidosis secondary to renal failure/lactic acidosis. We will c ontinue hydration. Currently improved, currently non-anion gap metabolic acidosis with contraction a lkalosis. I am going to continue fluid resuscitation. 5.Shock, multifactorial, secondary to non-ST elevation myocardial infarction, septic shock. Continu e antibiotic as above. We will follow up with Cardiology. Continue fluid resuscitation. Off presso r currently. 6.Respiratory failure. We will follow up with Pulmonary. Continue vent support. 7.Diabetes with diabetic ketoacidosis as above. Follow up with primary. 8.Hyperkalemia secondary to diabetic ketoacidosis/renal failure, recovered, resolved. We will noel nue aggressive hydration. MA/MODL Voice ID: [id number] Report ID: [id number]
[2021-10-06] MEDS: D10W 125 ML IV PRN ×3 (15:44→20:25)
[2021-10-06 16:27] LABS: Potassium 4.2 mmol/L (3.5-5.1)
[2021-10-06] MEDS ORDERED: PIPER TAZO 2.25 GM in NA CHLORIDE 0.9% 50 ML IV SCH (17:00)
[2021-10-06] MEDS ORDERED: FUROSEMIDE 40 MG/4 ML VIAL IV ONE (20:00)
[2021-10-06 20:23] LABS: Potassium 4.1 mmol/L (3.5-5.1)
[2021-10-06] MEDS ORDERED: DEXTROSE 10%-WATER 500 ML IV ONE (20:24)
[2021-10-06] MEDS: FAMOTIDINE 20 MG/2 ML VIAL IV SCH (20:46)
[2021-10-06] MEDS: D5 0.45 NS 1,000 ML IV SCH (20:48)
[2021-10-06] MEDS ORDERED: D5 0.45 NS 1,000 ML IV ONE (20:52)
--- NOTE | 2021-10-06 22:10 | CON ---
Reason For Consultation: Consultation called because the patient is unresponsive and intubated in [facility] with diabetic ketoacidosis. History Of Present Illness: Ms. Sanchez is an 86-year-old patient with insulin-dependent diabetes misa litus and hypertension, who was found unresponsive at home by a neighbor. The patient lives alone an d was last seen by a neighbor on Monday the , but when the patient was checked on sometime later, that is perhaps on the or , she was found unresponsive and had to be intubated in the field . She was very hypotensive and had elevated blood sugars recorded at 1429. She was given pressure s upport, thought to be in severe metabolic acidosis at [facility] and also in acute renal mariana lure, hyperkalemia, elevated troponins, elevated white blood cell count. Her lactic acid was elevate d to 9.4. Creatine kinase over 14,000. Troponin elevated at 13,482. Her AST was 143, alkaline phos phatase 123. Her arterial blood gas showed a pH of 6.96 after intubation. COVID testing was negativ e. Head CT scan and cervical spine CT scan showed no acute ischemic or hemorrhagic or hemorrhagic ch lalo. The head CT scan was remarkable for atrophy due to chronic small vessel ischemic disease. The re was disk space narrowing at C3-C4 and C5-C6 with foraminal bony stenosis. Since her intubation, the patient has been unresponsive to verbal stimulation or tactile stimulation in the upper extremities, sternal rub, and supraorbital pressure, but she has had focal withdrawal of the lower extremities and stimulation of the plantar surfaces. Past Medical History: As noted. Allergies: NO KNOWN DRUG ALLERGIES. Social History: The patient lives alone. Unable to determine if the patient is smoking or drinking alcohol. Family History: Noncontributory. Review of Systems: Not obtainable at this point. Medications: Currently the patient is given aspirin 325 per feeding tube, receiving Rocephin 1 g shira ly, Plavix 75 mg daily, Lovenox 60 mg subcutaneously daily, Pepcid 20 mg IV, insulin per protocol and vancomycin 0.75 mg with dialysis, which the patient is receiving. Physical Examination: Vital Signs: Blood pressure 122/49, pulse 105, respiratory rate of 28, temperature 97, oxygen satura tion 100%, weight 128 pounds, height 5 feet 6 inches, BMI 20. General: Ms. Sanchez is in bed, intubated. She appears normocephalic, atraumatic. Sclerae anicteric . Chest: Clear with good air movement. Extremities: No significant edema or cyanosis. Neurologic: Face does appear symmetric. The patient, however, is not able to respond to anything ve rbal or tactile stimulation of the upper extremities, sternal rub, or supraorbital region. She does have some slight doll's eye responses. No obvious visual threat at this point. She does have withdr awal with plantar stimulation and upgoing toes bilaterally. Her tone is normal in the upper and lowe r extremities. Cannot assess coordination or gait. Laboratory Studies: White blood cell count 12.1, hemoglobin 10.5, neutrophils 87. Assessment: Ms. Sanchez is an 86-year-old patient with likely significant hypoxic, ischemic and metab olic injury and diabetic ketoacidosis. Also there is apparent infection where she has elevated white blood cell count. An EEG would be helpful to predict prognosis and if possible at some point, a bra in MRI without and with contrast. Continue supportive care. We will follow up the patient when EEG is done. KELSEA/MODL Voice ID: [id number] Report ID: [id number]
[2021-10-07 01:02] LABS: Potassium 4.9 mmol/L (3.5-5.1)
[2021-10-07] MEDS: LORazepam 2 MG/ML VIAL IV PRN ×2 (04:27→18:26)
[2021-10-07] MEDS: D5 0.45 NS 1,000 ML IV SCH (04:43)
[2021-10-07 05:09] LABS: Arterial Blood Carboxyhemoglob 0.7 % (0-1.5); Blood Gas Oxyhemoglobin 95.9 % (94-97); Blood O2 Saturation 97.9 % (92-98.5)
[2021-10-07 05:10] LABS: Absolute Lymphocytes (CBC) 0.5 K/uL (0.7-4.9); Hematocrit 32.3 % (36.0-45.0); Lymphocytes % 2.9 % (15.3-44.8); MPV 9.1 fL (7.6-11.3); RBC Red Blood Cell Count 3.66 M/uL (3.86-4.86)
[2021-10-07] MEDS: FENTANYL CITR 100 MCG/2 ML IV PRN ×2 (05:36→12:57)
[2021-10-07 05:44] LABS: Blood Morphology Comment NOTED (NOT SEEN); Burr Cells 3+; Platelet Estimate ADEQ
[2021-10-07 05:51] LABS: Albumin 2.2 g/dL (3.4-5.0); BUN Blood Urea Nitrogen 75 mg/dL (7-18); Folic Acid, (Folate) 7.1 ng/mL (3.1-17.5); Glomerular Filtration Rate 10 ml/min (=/>90); Glucose Level 154 mg/dL (74-106); Magnesium 1.8 mg/dL (1.8-2.4); Phosphorus 3.5 mg/dL (2.5-4.9); Potassium 4.7 mmol/L (3.5-5.1); Sodium Level 140 mmol/L (136-145); Transferrin 135 mg/dL (200-360); Uric Acid 13.5 mg/dL (2.6-6.0)
[2021-10-07 05:55] LABS: Bicarbonate 14 mmol/L (21-32); Creatine Phosphokinase > 14000 U/L (26-192)
[2021-10-07] MEDS ORDERED: D5 0.45 NS 1,000 ML IV SCH (06:00)
--- NOTE | 2021-10-07 06:49 | CON ---
Date of Consultation: 10/06/2021 Reason For Consultation: Elevated troponin. History Of Present Illness: Ms. Sanchez is an 86-year-old woman. She is a Do Not Resuscitate. Came in with DKA with glucose over 1200. Her creatinine was 3.4. Her BNP and troponin were elevated. Sh hamilton is intubated. . No history can be obtained as far as her symptoms are concerned. Past Medical History: Includes diabetes. Allergies: NONE. Review of Systems: Negative. Social History: Negative. Family History: Negative. Physical Examination: Vital Signs: Stable, afebrile. She is in sinus tach. HEENT: Negative. Neck: Supple with no bruit. Chest: Revealed some rales, both bases. Cardiac: Revealed an S3 gallop with tachycardia. No murmurs or rubs. Abdomen: Benign. Extremities: Revealed trace edema. Diagnostic Data: Revealed a glucose 500, creatinine 3.4. Troponin and BNP are elevated. Chest x-ra y showed possible failure. Impression And Plan: 1.Diabetic ketoacidosis. 2.Do Not Resuscitate status. 3.Elevated troponin and BNP. Echocardiogram pending. 4.Possible acute systolic congestive heart failure. 5.Renal failure. I will continue her present regimen for now. Consider Nephrology consultation. See what the echocar diogram shows before making further decisions. I think she needs to be gently diuresed. Watch her I 's and O's. Watch her creatinine. I will discuss the case later with Dr. Peterson's after the echoc ardiogram is done. LUIS E/BINDU Voice ID: [id number] Report ID: [id number]
[2021-10-07] MEDS ORDERED: D5 0.9 NS 1,000 ML IV SCH ×2 (07:00)
[2021-10-07] MEDS ORDERED: MAGNESIUM SULFATE 1 gm IVPB 1 GM/100 ML BAG IV ONE (07:00)
[2021-10-07 07:01] LABS: Rheumatoid Factor NEG (NEG)
[2021-10-07] MEDS: FAMOTIDINE 20 MG/2 ML VIAL IV SCH (08:03)
[2021-10-07] MEDS: CEFTRIAXONE 1,000 MG in NA CHLORIDE 0.9% 50 ML IVPB SCH (08:03)
[2021-10-07] MEDS: ASPIRIN 325 MG TAB FT SCH (08:03)
[2021-10-07] MEDS: CLOPIDOGREL 75 MG TABLET PO SCH (08:03)
[2021-10-07] MEDS: ENOXAPARIN 60 MG/0.6 ML SQ SCH (08:03)
--- NOTE | 2021-10-07 08:03 | P.PN ---
Subjective Date of Service: 10/07/21 Chief Complaint: DKA Subjective: No new changes ( obtunded, still nonresponsive Staff report intermittent hyperventilation which improved with Ativan) Physical Examination - Vital Signs Temperature: 99.2 F Blood Pressure: 89/44 Pulse: 114 Respirations: 30 Pulse Ox (%): 98 - Studies Microbiology Data (last 24 hrs): 10/05/21 15:55 Blood - Blood Blood Culture Gram Stain - Final 10/05/21 15:55 Blood - Blood Gram Stain - Final Assessment And Plan Physician Review: Patient Assessed, Agree with Above Assessment and Plan Physician Review Additional Text: - Physical Exam General: Unresponsive, on vent, FiO2 40% HEENT: Atraumatic, Normocephalic, Mucous membr. moist/pink Neck: JVD not distended, No LAD Respiratory: Clear to auscultation bilaterally, Normal air movement, Other (On ventilator) Cardiovascular: No edema, Normal S1 S2 Capillary refill: <2 Seconds Gastrointestinal: Normal bowel sounds, Soft and benign, No masses Musculoskeletal: No contractures, No erythema, No warmth Integumentary: No tenderness/swelling, No erythema, No warmth Neurological: Other (Unresponsive, on ventilator without sedation at this time) Urinary: Talley catheter - Studies Laboratory Data (last 24 hrs) 10/05/21 15:55: PT 11.4, INR 1.04, APTT 19.3 L 10/05/21 15:55: Sodium 131 L, Potassium 7.7 H*, BUN 70 H, Creatinine 3.29 H, Glucose 1429 H*, Total Bilirubin 0.5, AST 143 H, ALT 45, Alkaline Phosphatase 123 H 10/05/21 15:55: WBC 13.9 H, Hgb 10.4 L, Hct 37.5, Plt Count 283 Assessment and Plan Prolonged unresponsiveness Acute rhabdomyolysis Acute kidney injurydue to ATN Septic shock Hypotension DKA Persistent metabolic acidosis NSTEMI Presumed systolic CHF Shock liver Acute respiratory failure Gram-positive bacteremia with bandemia and fever Plan: Still low-grade fever, continue Vanco/Rocephin Follow full blood culture, still bandemia with leukocytosis Still intermittent low blood pressure, continue aggressive IV fluid Still persistent anion gap metabolic acidosis, keep insulin drip at standard dose, increase D5 NS rate to avoid hypoglycemia Continue to optimize blood pressure, keep MAP greater than 70 Still worsening creatinine, follow with nephrology, may need renal replacement therapy Kobi elevated troponin, no urgent need for cardiac cath at this time, follow echo Appreciate cardiology consult Persistent unresponsiveness, not on sedation, follow EEG per neurology consult Overall poor prognosis, we discussed with family Continue Lovenox/aspirin for cardiac optimization high suspicion for anoxic brain injury Trending down vent settings DVT PPX: Heparin Code status: Full Discharge Plan: Home Plan to discharge in: Greater than 2 days - Advance Directives Does patient have a Living Will: No Does patient have a Durable POA for Healthcare: No 10/07/21 07:59 10/07/21 08:03
[2021-10-07] MEDS ORDERED: DEXTROSE 10%-WATER 500 ML IV SCH (08:45)
[2021-10-07] MEDS ORDERED: NA CHLORIDE 0.9% 1,000 ML IV SCH (09:00)
[2021-10-07] MEDS: DEXTROSE 10%-WATER 500 ML IV SCH ×2 (09:40→13:00)
[2021-10-07] MEDS: INSULIN -REGULAR HUMAN 100 UNIT in NA CHLORIDE 0.9% 100 ML IV SCH (10:13)
[2021-10-07 10:20] LABS: Potassium 4.3 mmol/L (3.5-5.1)
--- NOTE | 2021-10-07 10:53 | RAD REPORT ---
EXAM DESCRIPTION: XR CHEST 1 VIEW CLINICAL HISTORY: Vented COMPARISON: None. TECHNIQUE: XR CHEST 1 VIEW 10/07/2021 4:23 AM CDT FINDINGS: Cardiac silhouette is normal in size. Lungs are clear without consolidation, atelectasis, mass or edema. There is no pleural effusion. There is no pneumothorax. There are no acute osseous fin dings. Endotracheal tube tip is in the midtrachea. NG tube tip is in the stomach. IMPRESSION: No definite pneumonia. Electronically signed by: Jason Lee MD 10/07/2021 6:24 AM CDT Due to temporary technical issues with the PACS/Fluency reporting system, reports are being signed by the in house radiologist without review as a courtesy to ensure prompt reporting. The interpreting r adiologist is fully responsible for the content of the report.
--- NOTE | 2021-10-07 11:07 | RAD REPORT ---
EXAM DESCRIPTION: US - UPPER EXTREMITY VENOUS UNILATE - 10/07/2021 11:02 am CLINICAL HISTORY: left arm swollen Arm swelling and edema. COMPARISON: No comparisons FINDINGS: Left upper extremity venous system was interrogated with Doppler technique. Normal flow, c ompressibility and augmentation was noted. There is no DVT present. IMPRESSION: No evidence of left upper extremity deep venous thrombosis.
[2021-10-07] MEDS ORDERED: VANCOMYCIN 0.75 GM in NA CHLORIDE 0.9% 150 ML IVPB SCH (12:00)
[2021-10-07] MEDS: WATER FOR INJ,STERILE 1,000 ML with NA BICARB 8.4% 150 MEQ IV SCH ×4 (12:03→22:30)
--- NOTE | 2021-10-07 12:09 | PN ---
Date of Progress Note: 10/07/2021 Subjective: The patient was admitted with severe acidosis, DKA, altered mental status. The patient was found for unknown period down. The patient developed acute kidney injury. The patient had eleva tion in BUN and creatinine at present, but currently the patient is anuric. I spoke to the daughter over the phone, Ms. Root at phone #[phone] in length about her mother. She thinks that her mothe r has been depressed lately and she commented that occasionally she had strict control on her diabete s and that she made a few comments before that she is severely depressed and she may take her life by not taking her insulin and when they searched the house, found a lot of food and apparently the patient was severely confused with early dementia and has diarrhea. Physical Examination: Vital Signs: When I saw the patient; blood pressure 89/44, pulse of 114, afebrile. Chest: Clear to auscultation. Heart: S1, S2. Tachycardic. Abdomen: Soft, nontender. Extremity: No edema. Neuro: The patient on vent, not responsive. Laboratory Data: Sodium 140, potassium 4.7, bicarb 14, chloride 112, BUN 75, creatinine 4.2, GFR of 10, uric acid 13.5, calcium of 7, phosphorus 3.5, magnesium 1.8, CK above 14,000, albumin 2.2. Serum protein electrophoresis is still pending. TSH 6, PTH 686. Corrected calcium is 8.6. ABG; pH 7.37, CO2 21, O2 121, base access -12. The patient is anuric, could not do any urine study, toxicology, v anc trough 14, ketone still pending. Serology still pending. Current Medications: The patient on include; 1.Ceftriaxone. 2.Vancomycin. 3.Plavix. 4.Lovenox. 5.The patient received 1 dose of Lasix. 6.Pepcid. 7.Insulin. 8.Magnesium. 9.Fentanyl. Assessment And Plan: 1.Acute kidney injury, oliguric, complicated with acidosis, normal volume. I had our differential d iagnosis;. a.Prerenal, poor perfusion, ATN. b.Given the development of nonoliguric stage to rule out any renal vein thrombosis, we will discuss with Radiology the finding on the CT. c.I am going to initiate renal. 2.Possible intoxication. Her serum osmolality measured is 315, calculated also 315 which left no os molar gap, which rule out any intoxication of any methanol. I had long discussion with the daughter, Ms. Root, over the phone. She agreed to initiate renal replacement therapy. We will consult surgeon to place a catheter and start dialysis. We will do 1 session today and we will follow up. We will send for ethylene glycol salicylate and Tylenol. 3.Acidosis, non-anion gap metabolic acidosis with normal glucose currently. We will send as above. Serum osmolality did not show any gap. Rule out any other intoxication. I am going to send for wor kup. We will repeat ketone. We will send for salicylate, alcohol and methyl and we will follow up. We will start the patient on sodium bicarb 3 amp in free water and we will run it at 100. This flui d should be discontinued when we start the patient on dialysis. 4.Hypertension, currently hypotension. Continue fluid resuscitation. We will monitor. 5.Septic shock. Continue current antibiotic. We will follow up. 6.Shock, our differential non-ST elevation myocardial infarction. 7.Septic shock. We will continue supportive treatment. If the blood pressure continued to be on th e lower side, the patient may need to be initiated on pressor. 8.Diabetes with diabetic ketoacidosis as above. Continue insulin. Follow up with the primary. 9.Respiratory failure. Continue vent support. 10.Rhabdomyolysis. Continue hydration. Currently anuric. We will start dialysis. 11.Non-ST elevation myocardial infarction as by Cardiology. 12.Depression. The patient currently sedated. We will follow up. We will rule out any intoxicatio n. We will send further workup. Time spent examining the patient [id number], discussing the case with daughter over the phone Ms. Nikunj rainey, discussing the case with the sales floor team member including nursing at the ICU and with hospitalist 45 minutes. SARAHY Voice ID: [id number] Report ID: [id number]
[2021-10-07] MEDS ORDERED: CEFAZOLIN SODIUM 1 GM/VIAL ONE (14:10)
[2021-10-07] MEDS ORDERED: EPHEDRINE SULF 50 MG/ML VIAL ONE (14:11)
[2021-10-07] MEDS ORDERED: HEPARIN 5000 UNIT/ML 1 ML VIAL ONE (14:11)
[2021-10-07] MEDS ORDERED: propofoL 200 MG/20 ML VIAL IV ONE (14:11)
--- NOTE | 2021-10-07 14:11 | P.CNS ---
Date of Consult: 10/07/21 Reason for consult: Patient needs dialysis History of present illness: Patient is a 86-year-old female who is admitted with DKA, elevated troponin, altered mental state, respiratory failure and now is intubated with acute renal failure. The change in mental status is considered to be metabolic in origin. The nephrology service had a long discussion with the family and they want to proceed with dialysis. I was consulted for that purpose. Patient is unable to provide any information. Majority of the information is obtained from the medical records. Review of systems: Otherwise unremarkable Past medical history: Hypertension and diabetes Past surgical history: None recorded Allergies: None Social history: Not known Family history: Nonapplicable Vital signs: Stable, afebrile Physical exam:Patient vented and withdraws only to pain. Head and neck exam: No masses Chest: Clear Heart: S1-S2 Abdomen: Soft Extremity: Nontender Neuro: Responds to painful stimuli Diagnostic data: Reviewed Assessment: Acute renal failure in a patient with multiple comorbidities as well as respiratory failure Plan/recommendation: Discussed the case with Dr. Doyle. He has discussed the case in detail with the family and they want to proceed with dialysis. Therefore, informed consent from the family was obtained for a catheter placement. As the true prognosis for this patient condition is unknown at this time, we will place the Tesio catheter. Family understands risk benefits alternatives and agrees to procedure. CC:
[2021-10-07] MEDS ORDERED: NA CHLORIDE 0.9% 100 ML ONE (14:12)
[2021-10-07] MEDS ORDERED: NS 0.9% VIAL 10 ML ONE (14:12)
[2021-10-07] MEDS: LIDOCAINE 1% 20 ML MDV ONE ×2 (14:30→14:40)
[2021-10-07] MEDS: HEPARIN 5000 UNIT/ML 1 ML VIAL ONE ×4 (14:32→15:02)
[2021-10-07] MEDS ORDERED: Phenylephrine HCl 10 MG/ML 1 ML VIAL ONE (14:50)
[2021-10-07] MEDS ORDERED: Mastisol Adhesive Liq ONE (15:06)
--- NOTE | 2021-10-07 15:13 | P.OP ---
Date of Service: 10/07/21 Preop diagnosis: Acute renal failure Postop diagnosis: Same Procedure performed: Placement of right IJ Tesio catheter, fluoroscopy Surgeon: Kuldeep Blue MD Traffic Enumerator: Ko KESSLER Estimated blood loss: Minimal Specimen: None Findings: Normal anatomy Anesthesia: General Complications: None Drains: None Fluids and blood products: Nonapplicable Disposition: Back to the ICU Operative note: Patient brought to the OR and placed in the supine position. Patient was already intubated and general anesthesia was begun. Patient prepped and draped in the usual sterile fashion. Lidocaine 1% infiltrated locally. 18- gauge needle used to access the right IJ vein. Guidewire passed and position confirmed with fluoroscopy. Counterincision made on the right anterior chest. A tunneling device used to tunnel the catheter between the 2 wounds. Seldinger technique used. Vein dilated. Tesio catheter placed into the SVC under fluoroscopy. Catheter was flushed with heparin and packed with heparin with good blood flow. 3-0 chromic used to reapproximate subcutaneous tissue in close skin. 3-0 nylon used to secure the tube to the chest wall. Sterile dressing applied and patient awakened taken to back to ICU in in fair condition. CC:
--- NOTE | 2021-10-07 15:24 | RAD REPORT ---
EXAM DESCRIPTION: RAD - Fluoroscopy <1 Hour - 10/07/2021 3:18 pm CLINICAL HISTORY: Device placement central venous catheter placement FINDINGS: A central venous catheter was placed into the superior vena cava. 3 fluoroscopic spot imag es are submitted. Fluoroscopy time .1 minutes The examination was performed by Dr. Blue
[2021-10-07 15:47] LABS: Potassium 4.8 mmol/L (3.5-5.1)
[2021-10-07] MEDS: D5 0.9 NS 1,000 ML IV SCH (16:03)
--- NOTE | 2021-10-07 16:30 | RAD REPORT ---
[facility] 3:49 pm CLINICAL HISTORY: Device placement/central venous catheter placement IMPRESSION: Central venous catheter has been placed into the superior vena cava. No pneumothorax NG tube within the stomach
[2021-10-07] MEDS ORDERED: ALBUMIN HUMAN 25% 100 ML IV ONE (21:11)
[2021-10-07] MEDS ORDERED: NOREPINEPHRINE 4mg/D5W 250mL 4 MG/250 ML BAG IV ONE (21:21)
[2021-10-07] MEDS: NOREPINEPHRINE 4 MG in D5W 250 ML IV SCH (21:22)
[2021-10-07] MEDS ORDERED: ALBUMIN HUMAN 25% 50 ML IV SCH (22:00)
[2021-10-07] MEDS ORDERED: DIGOXIN 0.25 MG/ML AMP IV SCH ×2 (23:45→23:54)
[2021-10-07] MEDS ORDERED: DIGOXIN 0.25 MG/ML AMP ONE (23:53)
[2021-10-07] MEDS ORDERED: DIGOXIN 0.25 MG/ML AMP IV ONE (23:56)
[2021-10-08] MEDS ORDERED: NA CHLORIDE 0.9% 1,000 ML ONE (00:13)
[2021-10-08] MEDS ORDERED: NA CHLORIDE 0.9% 1,000 ML IV SCH (00:17)
[2021-10-08] MEDS: NOREPINEPHRINE 4 MG in D5W 250 ML IV SCH ×2 (00:59→04:16)
[2021-10-08 01:21] LABS: Potassium 5.3 mmol/L (3.5-5.1)
[2021-10-08] MEDS ORDERED: AMIODARONE HCL 150 MG in D5W 100 ML IV STA (01:22)
[2021-10-08] MEDS ORDERED: AMIODARONE HCL 150 MG/3 ML INJ IV ONE ×2 (01:31)
[2021-10-08] MEDS ORDERED: D5W 100 ML IV ONE (01:32)
[2021-10-08] MEDS ORDERED: AMIODARONE IN DEXTROSE,ISO-OSM 360 MG/200 ML BAG IV ONE (01:34)
[2021-10-08] MEDS: AMIODARONE HCL 900 MG in Dextrose 5%-Water 482 ML IV SCH ×2 (01:41→08:42)
[2021-10-08] MEDS: D5 0.9 NS 1,000 ML IV SCH ×4 (01:48→22:58)
[2021-10-08] MEDS: INSULIN -REGULAR HUMAN 100 UNIT in NA CHLORIDE 0.9% 100 ML IV SCH ×2 (01:57→08:41)
[2021-10-08] MEDS: DEXTROSE 10%-WATER 500 ML IV SCH ×4 (04:20→19:15)
[2021-10-08 05:38] LABS: Arterial Blood Carboxyhemoglob 0.2 % (0-1.5); Blood Gas Oxyhemoglobin 97.9 % (94-97); Blood O2 Saturation 99.4 % (92-98.5)
[2021-10-08 06:15] LABS: Absolute Lymphocytes (CBC) 0.4 K/uL (0.7-4.9); Hematocrit 26.5 % (36.0-45.0); Lymphocytes % 2.7 % (15.3-44.8); MPV 9.3 fL (7.6-11.3); RBC Red Blood Cell Count 2.89 M/uL (3.86-4.86)
[2021-10-08 06:39] LABS: Albumin 2.1 g/dL (3.4-5.0); Phosphorus 5.8 mg/dL (2.5-4.9); Potassium 4.7 mmol/L (3.5-5.1)
[2021-10-08 08:00] LABS: Blood Morphology Comment NOTED (NOT SEEN); Platelet Estimate DECR; Platelets, Giant FEW PRESENT
[2021-10-08] MEDS ORDERED: NOREPINEPHRINE 8 MG in Dextrose 5%-Water 500 ML IV SCH (08:00)
[2021-10-08 08:01] LABS: Burr Cells 2+
--- NOTE | 2021-10-08 08:10 | RAD REPORT ---
EXAM DESCRIPTION: [facility] Single View10/08/2021 5:22 am CLINICAL HISTORY: Shortness of breath COMPARISON: October 07, 2021 FINDINGS: The lungs appear clear of acute infiltrate. The heart is normal size. Central venous cath eter in place IMPRESSION: No acute abnormalities displayed
[2021-10-08] MEDS ORDERED: ENOXAPARIN 60 MG/0.6 ML SQ SCH (09:00)
[2021-10-08] MEDS ORDERED: ENOXAPARIN 40 MG/0.4 ML SQ SCH (09:00)
[2021-10-08] MEDS: WATER FOR INJ,STERILE 1,000 ML with NA BICARB 8.4% 150 MEQ IV SCH ×2 (10:00)
[2021-10-08] MEDS: CEFTRIAXONE 1,000 MG in NA CHLORIDE 0.9% 50 ML IVPB SCH (10:04)
[2021-10-08] MEDS: FAMOTIDINE 20 MG/2 ML VIAL IV SCH (10:04)
[2021-10-08] MEDS: ASPIRIN 325 MG TAB FT SCH (10:04)
[2021-10-08] MEDS: CLOPIDOGREL 75 MG TABLET PO SCH (10:04)
[2021-10-08] MEDS ORDERED: ACETAMINOPHEN 325 MG TABLET PO PRN (12:31)
[2021-10-08 12:52] LABS: Potassium 4.6 mmol/L (3.5-5.1)
--- NOTE | 2021-10-08 13:34 | P.PN ---
Subjective Date of Service: 10/08/21 Chief Complaint: DKA Subjective: Other (Remains bedridden.) Physical Examination - Vital Signs Temperature: 100.5 F Blood Pressure: 139/51 Pulse: 121 Respirations: 27 Pulse Ox (%): 100 - Physical Exam General: Other (appears acutely ill) HEENT: Atraumatic, Normocephalic Neck: Supple Respiratory: Other (symmetric chest expansion) Cardiovascular: No rubs, No murmurs Gastrointestinal: Soft and benign, No guarding Musculoskeletal: No clubbing Integumentary: No warmth Neurological: Normal tone Urinary: Other (no bladder distention) External genitalia: Deferred Rectal: Deferred - Studies Microbiology Data (last 24 hrs): 10/05/21 15:55 Blood - Blood Aerobic Blood Culture - Final Meth Resistant Staph Aureus 10/05/21 15:55 Blood - Blood Blood Culture Gram Stain - Final 10/05/21 15:55 Blood - Blood Anaerobic Blood Culture - Final 10/05/21 15:55 Blood - Blood Gram Stain - Final Assessment And Plan - Plan # YOHAN 2/2 ATN/septic shock + rhabdomyolysis HD received today HD again tomorrow Strict I/O Monitor renal panel # DKA Osmolal gap not elevated. Toxic alcohol ingestion unlikely Mngt per primary team HD as above # AGMA Improved Dc bicadrb gtt HD as above Recheck ABG tomorrow # Septic shock Gram-positive bacteremia with bandemia and fever On levo gtt Keep MAP > 65 Abx F/u cultures Late morning serum cortisol somewhat low at 12. Cosyntropin stim test done on 10/08 showed adeq adrenal gland response. No e/o primary adrenal insufficiency. F/u serum DHEAS + 8am serum ACTH. # Hypocalcemia Mild, corrected serum Ca 8.3 Correction via HD # NSTEMI Per Cardiology # Acute respi failure Respi mngt per other services Physician Review: Patient Assessed, Agree with Above Assessment and Plan
--- NOTE | 2021-10-08 15:46 | P.PN ---
Subjective Date of Service: 10/08/21 Chief Complaint: DKA Subjective: New changes (Status post developed A. fib after being started on Levophed during large volume ultrafiltration dialysis initiation yesterday. Still on Levophed drip now but weaning down On amiodarone drip ) Physical Examination - Vital Signs Temperature: 100.5 F Blood Pressure: 139/51 Pulse: 121 Respirations: 27 Pulse Ox (%): 100 - Studies Microbiology Data (last 24 hrs): 10/05/21 15:55 Blood - Blood Aerobic Blood Culture - Final Meth Resistant Staph Aureus 10/05/21 15:55 Blood - Blood Blood Culture Gram Stain - Final 10/05/21 15:55 Blood - Blood Anaerobic Blood Culture - Final 10/05/21 15:55 Blood - Blood Gram Stain - Final Assessment And Plan Physician Review: Patient Assessed, Agree with Above Assessment and Plan Physician Review Additional Text: - Physical Exam General: Unresponsive, on vent, FiO2 40% HEENT: Atraumatic, Normocephalic, Mucous membr. moist/pink Neck: JVD not distended, No LAD Respiratory: Clear to auscultation bilaterally, Normal air movement, Other (On ventilator) Cardiovascular: No edema, irregular, Capillary refill: <2 Seconds Gastrointestinal: Normal bowel sounds, Soft and benign, No masses Musculoskeletal: No contractures, No erythema, No warmth Integumentary: No tenderness/swelling, No erythema, No warmth Neurological: Other (Unresponsive, on ventilator without sedation at this time) Urinary: Talley catheter - Studies Assessment and Plan Prolonged unresponsiveness Acute rhabdomyolysis Acute kidney injurydue to ATN Septic shock Hypotension DKA Persistent metabolic acidosis NSTEMI Presumed systolic CHF Shock liver Acute respiratory failure Gram-positive bacteremia with bandemia and fever Plan: Still persistent large anion gap, continue insulin drip Intermittent hypoglycemia, continue D10/with added D5 NS Improved chest x-ray, improved pneumonia Continue Vanco/Rocephin for gram-positive bacteremia(although 1 out of 2 bottles with MRSA, follow repeat) Continue to wean IV Levophed as tolerated Continue amiodarone since still irregular A. fib Follow-up plan for repeat dialysis today, dialysis team discussed with to minimize ultrafiltration We will start IV hydrocortisone for sepsis -elevated troponin, no urgent need for cardiac cath at this time, follow echo Appreciate cardiology consult Persistent unresponsiveness, poor gag reflex but reactive pupil, breathing over vent, not on sedation, follow EEG per neurology consult Overall poor prognosis, high suspicion for anoxic brain injury, I discussed with patient daughter over the phone today Continue Lovenox/aspirin for cardiac optimization DVT PPX: Heparin Code status: Full Discharge Plan: Home Plan to discharge in: Greater than 2 days - Advance Directives Does patient have a Living Will: No Does patient have a Durable POA for Healthcare: No 10/08/21 15:46
[2021-10-08] MEDS ORDERED: CALCIUM GLUCONATE 1 GM IVPB 2 GM/100 ML BAG IV ONE (16:00)
[2021-10-08] MEDS: NOREPINEPHRINE 8 MG in D5W 500 ML IV SCH (16:46)
[2021-10-08] MEDS: CEFEPIME 1 GM in NA CHLORIDE 0.9% 100 ML IV SCH (16:58)
[2021-10-08] MEDS ORDERED: 0.9 % SODIUM CHLORIDE 20 ML ONE (17:41)
--- NOTE | 2021-10-08 17:58 | EKG ---
Test Date: 2021-10-07 Test Time: 22:35:22 [employer] Laborer: TOSHA MEASUREMENT RESULTS: Intervals: Rate: 142 VT: QRSD: 98 QT: 296 QTc: 455 [place]: P: VT: QRS: -31 T: 84 INTERPRETIVE STATEMENTS: Atrial fibrillation with rapid ventricular response Left axis deviation Nonspecific ST abnormality, probably digitalis effect Abnormal ECG Compared to ECG 10/06/2021 10:21:25 ST (T wave) deviation now present Sinus tachycardia no longer present Myocardial infarct finding no longer present Electronically Signed On 10-08-21 17:57:00 CDT by Elias Ghosh
[2021-10-08] MEDS ORDERED: COSYNTROPIN 0.25 MG VIAL IV ONE (18:00)
[2021-10-08 18:18] LABS: Potassium 3.3 mmol/L (3.5-5.1)
[2021-10-08] MEDS ORDERED: DEXTROSE 10%-WATER 500 ML IV ONE (20:22)
[2021-10-08] MEDS ORDERED: HEPARIN 5000 UNIT/ML 1 ML VIAL SQ SCH (21:00)
[2021-10-08] MEDS: HYDROCORTISONE SUC 100 MG INJ IV SCH (21:26)
[2021-10-08 21:35] LABS: Potassium 3.8 mmol/L (3.5-5.1)
[2021-10-09 01:29] LABS: Potassium 4.8 mmol/L (3.5-5.1)
[2021-10-09] MEDS: NOREPINEPHRINE 8 MG in D5W 500 ML IV SCH ×3 (04:28→20:03)
[2021-10-09 04:51] LABS: Arterial Blood Carboxyhemoglob 0.2 % (0-1.5); Blood Gas Oxyhemoglobin 93.5 % (94-97); Blood O2 Saturation 94.8 % (92-98.5)
[2021-10-09 05:05] LABS: Absolute Lymphocytes (CBC) 0.5 K/uL (0.7-4.9); Hematocrit 26.7 % (36.0-45.0); MPV 10.3 fL (7.6-11.3); RBC Red Blood Cell Count 2.89 M/uL (3.86-4.86)
[2021-10-09] MEDS ORDERED: MAGNESIUM SULFATE 1 gm IVPB 1 GM/100 ML BAG IV ONE ×2 (05:28→10:03)
[2021-10-09 05:36] LABS: Albumin 1.6 g/dL (3.4-5.0); Phosphorus 5.7 mg/dL (2.5-4.9); Potassium 5.2 mmol/L (3.5-5.1)
[2021-10-09] MEDS: INSULIN -REGULAR HUMAN 100 UNIT in NA CHLORIDE 0.9% 100 ML IV SCH (05:58)
[2021-10-09] MEDS ORDERED: WATER FOR INJ,STERILE 1,000 ML with NA BICARB 8.4% 150 MEQ IV SCH ×2 (07:30)
[2021-10-09] MEDS: D5 0.9 NS 1,000 ML IV SCH (08:42)
[2021-10-09] MEDS: HYDROCORTISONE SUC 100 MG INJ IV SCH ×2 (08:43→21:09)
[2021-10-09] MEDS: CLOPIDOGREL 75 MG TABLET PO SCH (08:44)
[2021-10-09] MEDS: ASPIRIN 325 MG TAB FT SCH (08:44)
[2021-10-09] MEDS: FAMOTIDINE 20 MG/2 ML VIAL IV SCH (08:44)
[2021-10-09] MEDS: CEFEPIME 1 GM in NA CHLORIDE 0.9% 100 ML IV SCH (08:44)
[2021-10-09] MEDS ORDERED: Magnesium Sulfate 2gm IVPB 2 G/50 ML BAG IV ONE (09:13)
--- NOTE | 2021-10-09 09:55 | P.PN ---
Subjective Date of Service: 10/09/21 Chief Complaint: DKA Subjective: Other (Received HD yesterday. Still bedridden. Still on vasopressor.) Physical Examination - Vital Signs Temperature: 100.5 F Blood Pressure: 110/38 Pulse: 109 Respirations: 29 Pulse Ox (%): 100 - Physical Exam General: Other (appears acutely ill) HEENT: Atraumatic, Normocephalic Neck: Supple Respiratory: Other (symmetric chest expansion) Cardiovascular: No rubs, No murmurs Gastrointestinal: No guarding Musculoskeletal: No clubbing Integumentary: No warmth Neurological: Other (non-focal) Urinary: Other (no bladder distention) External genitalia: Deferred Rectal: Deferred - Studies Microbiology Data (last 24 hrs): 10/05/21 15:55 Blood - Blood Aerobic Blood Culture - Final Meth Resistant Staph Aureus 10/05/21 15:55 Blood - Blood Blood Culture Gram Stain - Final 10/05/21 15:55 Blood - Blood Anaerobic Blood Culture - Final 10/05/21 15:55 Blood - Blood Gram Stain - Final Assessment And Plan - Plan # YOHAN 2/2 ATN/septic shock + rhabdomyolysis CPK trending down HD received yesterday HD again today Strict I/O Monitor renal panel # DKA Recheck osmolal gap. Unable to r/o toxic alcohol ingestion at this time although less likely. Mngt per primary team HD as above # AGMA Repeat ABG on 10/09 showed worsening acidosis. IV bicarb received this morning. HD again today # Septic shock, MRSA bacteremia On levo gtt Keep MAP > 65 Abx F/u cultures Late morning serum cortisol somewhat low at 12. Cosyntropin stim test done on 10/08 showed adeq adrenal gland response. No e/o primary adrenal insufficiency. F/u serum DHEAS + 8am serum ACTH. TTE on 10/06 showed severe global hypokinesis, mild MR, TR, LVEF 35%, no vegetation noted May need PETE d/t MRSA bacteremia, to assess for endocarditis # Severe lactic acidosis Not improved despite dialysis Abdomen semi-tense on exam CT A/P non contrast unable to view gall bladder adequately R/o intra-abd issues until proven otherwise Check an abd US w/ doppler to assess for hepatobiliary/gallbladder issues, clot, pancreatitis F/u LFT, amylase, lipase R/o non-convulsive seizure R/o Wernicke/Beri beri. Check serum B1 level. # Anemia, thrombocytopenia +sandi cells on blood smear Ferritin elevated Check haptoglobin, LDH, PT, PTT, fibrinogen, d dimer to assess for TMA, DIC # Hypocalcemia Improved, corrected serum Ca 8.8 Correction via HD # NSTEMI Per Cardiology # Acute respi failure Respi mngt per other services Physician Review: Patient Assessed, Agree with Above Assessment and Plan
[2021-10-09 10:06] LABS: Protime INR 2.44
--- NOTE | 2021-10-09 10:49 | P.PN ---
Subjective Date of Service: 10/09/21 Chief Complaint: DKA Subjective: No new changes (Still on IV pressors and amiodarone drip Status postdialysis yesterday Still worsening anion gap acidosis today, started on bicarb drip) Physical Examination - Vital Signs Temperature: 100.5 F Blood Pressure: 110/38 Pulse: 109 Respirations: 29 Pulse Ox (%): 100 - Studies Microbiology Data (last 24 hrs): 10/05/21 15:55 Blood - Blood Aerobic Blood Culture - Final Meth Resistant Staph Aureus 10/05/21 15:55 Blood - Blood Blood Culture Gram Stain - Final 10/05/21 15:55 Blood - Blood Anaerobic Blood Culture - Final 10/05/21 15:55 Blood - Blood Gram Stain - Final Assessment And Plan Physician Review: Patient Assessed, Agree with Above Assessment and Plan Physician Review Additional Text: - Physical Exam General: Unresponsive, on vent, FiO2 40% HEENT: Atraumatic, Normocephalic, Mucous membr. moist/pink Neck: JVD not distended, No LAD Respiratory: Clear to auscultation bilaterally, Normal air movement, Other (On ventilator) Cardiovascular: No edema, irregular, Capillary refill: <2 Seconds Gastrointestinal: Normal bowel sounds, Soft and benign, No masses Musculoskeletal: No contractures, No erythema, No warmth Integumentary: No tenderness/swelling, No erythema, No warmth Neurological: Other (Unresponsive, on ventilator without sedation at this time) Urinary: Talley catheter Studies CT abdomen/chest5/ 4no acute intra-abdominal or chest pathology Assessment and Plan Prolonged unresponsiveness Acute rhabdomyolysis Acute kidney injurydue to ATN from hypotension/sepsis/rhabdomyolysis Septic shock Hypotension DKA Persistent metabolic acidosis with lactic acidemia NSTEMI Systolic CHFEF 35% with global hypokinesis Shock liver Acute respiratory failure MRSA bacteremia with bandemia and fever Thrombocytopeniaworsening Plan: Still recurrent anion gap metabolic acidosis likely due to lactic acidemia CT shows no intra-abdominal perforation or ischemia, obtain peripheral smear to rule out schistocytes since possible TTP -Platelet trending down, greater than 50% loss since admission, obtain heparin- induced platelet antibodies, start argatroban if evidence of DVT -Hold heparin and Plavix for now Restart sodium bicarb drip Continue insulin drip per protocol although persistent anion gap metabolic acidosis may not be due to DKA low Still persistent elevated CK level, may be contributing to acidemia, follow with dialysis Advised prolonged SLED form of dialysis today-increase HD duration to 4 hours -Resolved recurrent hypoglycemia, follow with sodium bicarb in D5 IVF, DC D5 NS -Chest x-ray with improving pneumonia Continue vancomycin/cefepime for now MRSA bacteremia although only 1 out of 2 bottles, repeat blood culture no growth to date -Still on Levophed drip, continue IVF with hydrocortisone Still persistent unresponsiveness, follow EEG per neurology eval Still A. fib with tachycardia, continue amiodarone drip -elevated troponin, no urgent need for cardiac cath at this time, Appreciate cardiology consult, hold statin and Plavix for now Persistent unresponsiveness, poor gag reflex but reactive pupil, breathing over vent, not on sedation Overall poor prognosis, high suspicion for anoxic brain injury Continue Lovenox/aspirin for cardiac optimization DVT PPX: Heparin Code status: Full Discharge Plan: Home Plan to discharge in: Greater than 2 days - Advance Directives Does patient have a Living Will: No Does patient have a Durable POA for Healthcare: No
[2021-10-09 11:08] LABS: Albumin 1.3 g/dL (3.4-5.0); Bilirubin Direct 0.5 mg/dL (0-0.2); Bilirubin Total 0.9 mg/dL (0.2-1.0); Protein, Total 3.3 g/dL (6.4-8.2)
--- NOTE | 2021-10-09 13:24 | RAD REPORT ---
EXAM DESCRIPTION: US - Abdomen Exam Complete - 10/09/2021 1:13 pm CLINICAL HISTORY: Abdominal pain/sepsis COMPARISON: October 05, 2021 renal ultrasound FINDINGS: The liver has a normal echotexture. A gallstone is not seen. The gallbladder wall is not thickened. The biliary tree is normal caliber. The pancreas is normal in size and echotexture The right kidney measures 10 centimeters with a normal echotexture. The left kidney measures 10 centimeters with a normal echotexture. Limited evaluation of the spleen. The abdominal aorta and inferior vena cava appear unremarkable Small amount of ascites IMPRESSION: Small amount of ascites
--- NOTE | 2021-10-09 14:06 | RAD REPORT ---
EXAM DESCRIPTION: CT - Chest For Pe Angio - 10/09/2021 1:56 pm CLINICAL HISTORY: Chest pain/elevated D-dimer COMPARISON: October 05, 2021 TECHNIQUE: Dynamically enhanced axial 3 mm thick images of the chest were obtained during administra tion of <100> mL Isovue 370 IV contrast. Coronal and oblique reconstruction images were generated and reviewed. Exam utilizes a protocol for optimal evaluation of pulmonary arterial tree. Maximum intensity projections 3D imaging was utilized All CT scans are performed using dose optimization technique as appropriate and may include automated exposure control or mA/KV adjustment according to patient size. FINDINGS: A pulmonary embolus is not seen. A thoracic aortic aneurysm is not noted. Small to moderate pleural effusions. Mild left lower lobe atelectasis. No pericardial effusion. Endotracheal tube with its tip 3.5 centimeters above the gerry. Nasogastric tube within the stomach. Small amount of ascites within the upper abdomen. Diffuse edema within the subcutaneous tissues IMPRESSION: Negative for a pulmonary embolism.
[2021-10-09] MEDS: D5W 1,000 ML with NA BICARB 8.4% 150 MEQ IV SCH ×2 (15:00)
[2021-10-09] MEDS: AMIODARONE HCL 900 MG in Dextrose 5%-Water 482 ML IV SCH (15:53)
[2021-10-09 16:13] LABS: Potassium 4.3 mmol/L (3.5-5.1)
[2021-10-09 22:34] VITALS: O2SAT 99
[2021-10-10] MEDS: D5W 1,000 ML with NA BICARB 8.4% 150 MEQ IV SCH ×2 (02:10)
[2021-10-10 04:55] LABS: Absolute Lymphocytes (CBC) 0.4 K/uL (0.7-4.9); Hematocrit 23.4 % (36.0-45.0); Lymphocytes % 4.4 % (15.3-44.8); MPV 10.4 fL (7.6-11.3); RBC Red Blood Cell Count 2.68 M/uL (3.86-4.86)
[2021-10-10 05:09] LABS: Albumin 1.3 g/dL (3.4-5.0); Phosphorus 3.1 mg/dL (2.5-4.9); Potassium 3.8 mmol/L (3.5-5.1)
[2021-10-10 05:11] LABS: Albumin 1.3 g/dL (3.4-5.0); Phosphorus 3.2 mg/dL (2.5-4.9)
[2021-10-10 05:28] LABS: Arterial Blood Carboxyhemoglob 0.9 % (0-1.5); Blood Gas Oxyhemoglobin 97.2 % (94-97); Blood O2 Saturation 98.9 % (92-98.5)
[2021-10-10 05:46] VITALS: BMI 28.0
[2021-10-10 08:31] LABS: Potassium 3.7 mmol/L (3.5-5.1)
[2021-10-10] MEDS: CEFEPIME 1 GM in NA CHLORIDE 0.9% 100 ML IV SCH (08:55)
[2021-10-10] MEDS: FAMOTIDINE 20 MG/2 ML VIAL IV SCH (08:55)
[2021-10-10] MEDS: ASPIRIN 325 MG TAB FT SCH (08:55)
[2021-10-10] MEDS: HYDROCORTISONE SUC 100 MG INJ IV SCH (08:55)
[2021-10-10 10:06] VITALS: TEMP 98.6
[2021-10-10 10:09] VITALS: BP 103/48
[2021-10-10] MEDS ORDERED: MORPHINE 2 MG/ML SYR IV PRN ×2 (11:42→11:45)
--- NOTE | 2021-10-10 13:48 | P.PN ---
Subjective Date of Service: 10/10/21 Chief Complaint: DKA Subjective: New changes (Extensive discussion held with family yesterday, Daughter once comfort care measures. She has arranged for family to come and say final goodbyes this morning. Family arrived in room. Patient palliatively extubated. Noted mild grunting sound during extubation. But not responding to pain stimuli) Physical Examination - Vital Signs Temperature: 98.6 F Blood Pressure: 103/48 Pulse: 95 Respirations: 28 Pulse Ox (%): 97 Assessment And Plan Physician Review: Patient Assessed, Agree with Above Assessment and Plan Physician Review Additional Text: - Physical Exam General: Unresponsive, palliatively extubated HEENT: Atraumatic, Normocephalic, Mucous membr. moist/pink Neck: JVD not distended, No LAD Respiratory: Clear to auscultation bilaterally, Normal air movement, Other (On ventilator) Cardiovascular: No edema, irregular, Capillary refill: <2 Seconds Gastrointestinal: Normal bowel sounds, Soft and benign, No masses Musculoskeletal: No contractures, No erythema, No warmth Integumentary: No tenderness/swelling, No erythema, No warmth Neurological: Other (Unresponsive, Urinary: Talley catheter Studies CT abdomen/chest5/2 4no acute intra-abdominal or chest pathology Assessment and Plan Prolonged unresponsiveness Acute rhabdomyolysis Acute kidney injurydue to ATN from hypotension/sepsis/rhabdomyolysis Septic shock Hypotension DKA Persistent metabolic acidosis with lactic acidemia NSTEMI 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 Time Spent Managing PTS Care (In Minutes): 35
--- NOTE | 2021-10-10 13:53 | P.DS ---
Admission Date: 10/05/21 Discharge Date: 10/10/21 Reason for Admission: DKA Brief History of Present Illness: Reason for admission: DKA History of Present Illness: 86-year-old female patient with history of insulin-dependent diabetes, hypertension was found by her neighbor unresponsive in her home, she was last seen by her neighbor on Monday the . Patient does live at home alone. EMS was called and intubated patient in the field she was profoundly hypotensive and started on Levophed as well prior to arrival in the emergency department. Patient was seen and evaluated in the emergency department she was found to be in DKA with severe metabolic acidosis, acute renal failure, hyperkalemia with elevated troponin and BNP as well as lactic acidosis and elevated white blood cell count. Patient was started on insulin drip, bicarb drip given dose of Zosyn had CT scans of head/neck/chest abdomen pelvis which were negative for acute findings, chest x-ray also negative for acute findings. Patient was weaned off of vasopressors during her stay in the emergency department blood pressure has stabilized, ED physician wishes to admit for further evaluation and management of DKA with coma Allergies No Known Allergies Allergy (Unverified 09/24/15 13:38) - Past Medical/Surgical History Diabetic: Yes -: diabetes -: hypertension Past Surgical History: Unable to obtain Psychosocial/ Personal History: Patient lives at home, alone Hospital Course: Hospital course Patient admitted for unresponsiveness noted with MRSA bacteremia, DKA, septic shock, non-ST MD with severe elevated troponin level. Acute kidney injury with relative anuria, persistent lactic acidemia and severe metabolic acidosis. She remained intubated and on vent. She was poorly responsive to stimuli including pain. She was still able to breathe output vent base no significant cortical function activity elicited. She was initially initiated on dialysis. She had recurrent bouts of hypoglycemia with insulin drip. IV fluid was switched to sodium bicarb as well as continued on dialysis. Family discussed with and given no significant neuro improvement over first 48 hours daughter decided for comfort care. Patient will was palliatively extubated this a.m. Patient within 2 hours of extubation Vital Signs/Physical Exam: Temp Pulse Resp BP Pulse Ox 98.6 F 95 H 28 H 103/48 L 97 10/10/21 13:48 10/10/21 13:48 10/10/21 13:48 10/10/21 13:48 10/10/21 13:48 Laboratory Data at Discharge: WBC 8.7 K/uL (4.3-10.9) D 10/10/21 04:40 Hgb 7.9 g/dL (12.0-15.0) L 10/10/21 04:40 Hct 23.4 % (36.0-45.0) L 10/10/21 04:40 Plt Count 75 K/uL (152-406) L 10/10/21 04:40 PT 27.3 SECONDS (9.5-12.5) H 10/09/21 09:43 INR 2.44 10/09/21 09:43 APTT 40.6 SECONDS (24.3-36.9) H 10/09/21 09:43 Sodium 131 mmol/L (136-145) L 10/10/21 07:57 Potassium 3.7 mmol/L (3.5-5.1) 10/10/21 07:57 BUN 46 mg/dL (7-18) H 10/10/21 07:57 Creatinine 3.38 mg/dL (0.55-1.3) H 10/10/21 07:57 Glucose 191 mg/dL (74-106) H 10/10/21 07:57 Uric Acid 13.5 mg/dL (2.6-6.0) H 10/07/21 04:40 Phosphorus 3.1 mg/dL (2.5-4.9) 10/10/21 04:40 Phosphorus 3.2 mg/dL (2.5-4.9) 10/10/21 04:40 Magnesium 2.0 mg/dL (1.8-2.4) 10/10/21 04:40 Total Bilirubin 0.9 mg/dL (0.2-1.0) 10/09/21 09:43 AST 1294 U/L (15-37) H* D 10/09/21 09:43 ALT 575 U/L (12-78) H* D 10/09/21 09:43 Alkaline Phosphatase 295 U/L (45-117) H 10/09/21 09:43 Triglycerides 83 mg/dL (<150) 10/06/21 05:12 Cholesterol 134 mg/dL (<200) 10/06/21 05:12 HDL Cholesterol 71 mg/dL (40-60) H 10/06/21 05:12 Cholesterol/HDL Ratio 1.89 10/06/21 05:12 Amylase 328 U/L (25-115) H* 10/09/21 09:43 Lipase 112 U/L (73-393) 10/09/21 09:43 Followup: NONE,NONE [Primary Care Provider] -
--- NOTE | 2021-10-10 14:26 | PN ---
Date of Progress Note: 10/07/2021 Ms. Sanchez has been followed for congestive heart failure, elevated troponin, renal failure, DKA. Sh e is now on beta-megan and Lasix. Echocardiogram done and revealed an ejection fraction 35% consis tent with acute systolic congestive heart failure. The patient remains in renal failure with a creat inine of 3.58. Her heart rate is sinus about 143. She remains intubated. Her last blood gases; pO2 of 121, pCO2 of 21, pH of 7.37. Her white count was 17,000. Troponin was 25,000. Her CPK is 14,00 0. Her BNP is 11,000. She appeared to be septic with cardiac shock and septic shock with hyperkalem ia and DKA. Needs to be hydrated. Continue antibiotics. Continue ventilation. She is on aspirin a nd Lovenox and Lasix as well. We will continue to follow her as needed. Ms. Sanchez is a DNR. We wi ll consider a heart catheterization down the road depending how she performs. LUIS E/BINDU Voice ID: [id number] Report ID: [id number]
[2021-10-11 17:19] LABS: HIV AG/AB 4TH GEN Non-reactive (Non-reactive)
[2021-10-12 11:21] LABS: Vitamin D 1,25-Dihydroxy Total 30 pg/mL (18-72); Vitamin D,1,25-OH2, D2 <8 pg/mL
[2021-10-12 16:04] LABS: Albumin, (SPE) 2.6 g/dL (3.8-4.8); Alpha-1-Globulins 0.3 g/dL (0.2-0.3); Alpha-2-Globulins 0.6 g/dL (0.5-0.9); Gamma Globulins 0.5 g/dL (0.8-1.7); INTERPRETATION REPORT
== END 2021-10-10 13:19 | disposition expired | DRG 870 ==
LOC: ER 15:38 → ERHOLD 18:01 → 3RD-ICU 19:44
PROVIDERS: ADMIT Internal Medicine; ATTEND Internal Medicine
PROC: 5A1955Z Respiratory Ventilation, Greater than 96 Consecutive Hours (ICD-10-PCS; principal; 2021-10-05)
PROC: 06HY33Z Insertion of Infusion Device into Lower Vein, Percutaneous Approach (ICD-10-PCS; 2021-10-05)
PROC: 3E033XZ Introduction of Vasopressor into Peripheral Vein, Percutaneous Approach (ICD-10-PCS; 2021-10-05)
PROC: 0JH63XZ Insertion of Tunneled Vascular Access Device into Chest Subcutaneous Tissue and Fascia, Percutaneous Approach (ICD-10-PCS; 2021-10-07)
PROC: 02HV33Z Insertion of Infusion Device into Superior Vena Cava, Percutaneous Approach (ICD-10-PCS; 2021-10-07)
PROC: 5A1D70Z Performance of Urinary Filtration, Intermittent, Less than 6 Hours Per Day (ICD-10-PCS; 2021-10-07)
PROC: 5A1D70Z Performance of Urinary Filtration, Intermittent, Less than 6 Hours Per Day (ICD-10-PCS; 2021-10-08)
PROC: 5A1D70Z Performance of Urinary Filtration, Intermittent, Less than 6 Hours Per Day (ICD-10-PCS; 2021-10-09)
DX: A41.9 Sepsis, unspecified organism (principal); E11.11 Type 2 diabetes mellitus with ketoacidosis with coma; I21.4 Non-ST elevation (NSTEMI) myocardial infarction; J96.00 Acute respiratory failure, unspecified whether with hypoxia or hypercapnia; G93.41 Metabolic encephalopathy; N17.0 Acute kidney failure with tubular necrosis; R65.21 Severe sepsis with septic shock; R57.0 Cardiogenic shock; I50.21 Acute systolic (congestive) heart failure; K72.00 Acute and subacute hepatic failure without coma; G93.1 Anoxic brain damage, not elsewhere classified; E87.0 Hyperosmolality and hypernatremia; M62.82 Rhabdomyolysis; I10 Essential (primary) hypertension; E87.5 Hyperkalemia; I25.10 Atherosclerotic heart disease of native coronary artery without angina pectoris; Z66 Do not resuscitate; F32.A Depression, unspecified; E83.51 Hypocalcemia; D64.9 Anemia, unspecified; D69.6 Thrombocytopenia, unspecified; E11.649 Type 2 diabetes mellitus with hypoglycemia without coma; I48.91 Unspecified atrial fibrillation; R00.0 Tachycardia, unspecified; Z20.822 Contact with and (suspected) exposure to COVID-19; Z79.4 Long term (current) use of insulin; Z74.01 Bed confinement status; Z78.1 Physical restraint status
CPT/HCPCS: 36415; 51702; 70450; 71045; 71250; 71275; 72125; 74176; 76000; 76700; 76770; 80048; 80053; 80061; 80069; 80076; 80202; 80320; 80329; 82010; 82024; 82040; 82150; 82533; 82550; 82607; 82627; 82652; 82728; 82746; 82805; 82947; 83010; 83036; 83520; 83540; 83605; 83615; 83690; 83735; 83880; 83930; 83970; 84100; 84165; 84425; 84439; 84443; 84466; 84484; 84550; 85025; 85044; 85379; 85384; 85610; 85730; 86021; 86022; 86038; 86160; 86225; 86430; 86704; 86706; 86803; 87040; 87077; 87086; 87088; 87186; 87205; 87340; 87389; 87804; 90935; 93005; 93306; 93971; 94002; 94003; 96372; 99291; 99292; C1752; J0282; J0610; J0690; J0692; J0834; J1160; J1265; J1630; J1644; J1650; J1720; J1815; J1940; J2250; J2370; J2543; J2704; J3010; J3370; J3475; J3480; J3490; J7030; J7042; J7050; J7060; J7799; P9047; Q9967; U0003